=== PATIENT | female | born 1950 | race Caucasian/White ===

== ENCOUNTER 2019-07-14 19:22 | Inpatient (IN) | payer OTHER ==
[2019-07-14] MEDS ORDERED: SODIUM CHLORIDE 1,000 ML IV STA (19:32)
--- NOTE | 2019-07-14 19:37 | PDOC ---
Attending Attestation - Resident Resident Name: Nikolai Carter - ED Attending Attestation I have performed the following: I have examined & evaluated the patient, The case was reviewed & discussed with the resident, I agree w/resident's findings & plan - HPI HPI: 07/14/19 21:28 see resident hpi - Physicial Exam PE: 07/14/19 21:28 agree with resident exam - Critical Care Time Total Critical Care Time: 45 Critical Care Statement: The care of this patient involved high complexity decision making to prevent further life threatening deterioration of the patient 's condition and/or to evaluate & treat vital organ system(s) failure or risk of failure. - Medical Decision Making 07/14/19 21:30 69-year-old female found on the floor by her son Labs are consistent withsevere volume depletion,dehydration with acute kidney injury as well as rhabdomyolysis lactic acid markedly elevated as well Plan for smith-scan CThead spinechest abdomen and pelvis ICU consult called for admission
--- NOTE | 2019-07-14 19:44 | PDOC ---
History of Present Illness - General Chief Complaint: Altered Mental Status Stated Complaint: WEAKNESS Time Seen by Provider: 07/14/19 19:31 History Source: Patient Exam Limitations: Clinical Condition - History of Present Illness Initial Comments: Alyssa Irizarry is a 69 yo F who presents to the [facility] er BIBEMS altered and unresponsive. EMS states she was in A-fib with RVR on route so they gave 25 mg of cardizem after which the patient became bradycardic to the 30's. The patient is not able to contribute anything to the history however she does moan saying her abdomen, which is significantly distended hurts and her abdomen is in pain. The son is with the patient in the ER. The son states that his mother lives at home alone and has not eaten any food or drank anything for the past 3 days. The son states that his mom has been lying down on the ground unresponsive and confused. She refused to shower, eat or drink. The patient arrived in the ER covered in dirt, urine and feces with a strongly malodorous scent. Upon ER arrival patient was tachycardic to the 170's then oralia's down to the 30's, then went back up to the 150's. We immediately brought the patient into room 10 , hooked her up to the monitor, established two larged bore IV's, placed her on the monitor and started fluid bolusing her. Patient is responsive to pain and can answer questions with noxious stimulation. Past History - Past Medical History Allergies/Adverse Reactions: Allergies Allergy/AdvReac Type Severity Reaction Status Date / Time No Known Allergies Allergy Verified 07/14/19 19:46 Review of Systems - Review of Systems Able to Perform ROS?: No (AMS) *Physical Exam - Physical Exam Comments: GENERAL: Patient is covered in dirt, urine, and feces. Patient has a strongly malodorous scent. Patient is arousable to sternal rub and noxious stimulation. Moderate distress. HEAD: Atraumatic and nontender. HEENT: Pupils are equal round and reactive to light. No facial deformity. No facial bone tenderness or step-off. The oropharynx is not well maintained. NECK: The trachea is midline, there is no stridor. There is no midline cervical spine tenderness, full range of motion of neck. CHEST: There are multiple intertrigonous lesoins under both breast. Non-tender, no ecchymosis or abrasions. Equal chest wall expansion bilaterally. No flail segments. Lungs are clear to auscultation bilaterally. CARDIOVASCULAR: Irregular tachycardic rate. Normal S1-S2. No murmurs or rubs. ABDOMEN: The abdomen is significant;y distended and peritoneal. There is guarding but no rebound. No abdominal echymosis. BACK/PELVIS: There is no midline thoracic or lumbosacral spine tenderness or step-off. Pelvis is stable and nontender. EXTREMITIES: bilateral knee abrasions. The extremities There is no extremity deformity or joint swelling. No focal bony tenderness throughout. 2+ distal pulses throughout. NEURO: Alert and oriented x1. SKIN: Multiple abrasions. No hematomas or lacerations. Procedures - Intubation Time of Intubation: 11:04 Intubation Method: orotracheal Blade used: Mac Tube Size (Fr): 7.0 Medications: Etomidate, Rocuronium Tube position @ lip (cm): 20 Tube position confirmed by: Direct visualization, CO2 detector, Chest x-ray, Breath sounds Breath Sounds after Intubation: equal Intubation Complications: no complications Post Intubation Xray: Yes ED Treatment Course - LABORATORY CBC & Chemistry Diagram: 07/15/19 04:40 07/15/19 04:40 - RADIOLOGY Radiograph Interpretation: CT: EXAM: CT chest, abdomen and pelvis without contrast HISTORY: Intubated COMPARISON: None. FINDINGS: CT chest: There is no aortic aneurysm. The main pulmonary artery is dilated to 3.7 cm which suggest pulmonary arterial hypertension. There is no significant mediastinal or hilar adenopathy. The heart is mildly enlarged. The trachea and bronchi are patent. There is no pleural or pericardial effusion. Consolidations in the right middle lobe and bilateral lower lobes are suspicious to represent pneumonia although there may be an element of atelectasis. Diffuse esophageal reflux is noted. CT abdomen and pelvis: Intraperitoneal free air is highly suspicious for bowel perforation. There is a small to moderate amount of ascites. Dilated loops of small bowel are noted, measuring up to 3.7 cm, suggesting a small bowel obstruction and perforated SBO should clearly be considered. Normal unenhanced liver, gallbladder, spleen, pancreas adrenal glands and kidneys. No aortic aneurysm. There is moderate retroperitoneal adenopathy, suspicious for neoplasm. Urinary bladder is collapsed by Booker catheter. There is an air and fluid containing irregular mass in the pelvis measuring approximately 12.8 x 12.2 cm unclear if representing uterus or a mesenteric mass. An abnormal small bowel loop is possible this could be the cause of small bowel obstruction and perforation. IMPRESSION: Suspected pulmonary arterial hypertension. Probable right middle lobe and bilateral lower lobe pneumonia. Diffuse esophageal reflux. Intraperitoneal free air and ascites, highly suspicious for bowel perforation, possibly due to small bowel obstruction. 12.8 cm and and fluid-containing pelvic mass, unclear if representing the uterus , mesenteric mass or possibly an abnormal loop of bowel, which could be the cause of small bowel obstruction. Retroperitoneal adenopathy is suspicious for neoplasm. Medical Decision Making - Medical Decision Making Alyssa Irizarry is a 69 yo F who presents to the [facility] er BIBEMS altered and unresponsive. EMS states she was in A-fib with RVR on route so they gave 25 mg of cardizem after which the patient became bradycardic to the 30's. The patient is not able to contribute anything to the history however she does moan saying her abdomen, which is significantly distended hurts and her abdomen is in pain. The son is with the patient in the ER. The son states that his mother lives at home alone and has not eaten any food or drank anything for the past 3 days. The son states that his mom has been lying down on the ground unresponsive and confused. She refused to shower, eat or drink. The patient arrived in the ER covered in dirt, urine and feces with a strongly malodorous scent. Upon ER arrival patient was tachycardic to the 170's then oralia's down to the 30's, then went back up to the 150's. We immediately brought the patient into room 10 , hooked her up to the monitor, established two larged bore IV's, placed her on the monitor and started fluid bolusing her. Patient is responsive to pain and can answer questions with noxious stimulation. Vital Signs Temp Pulse Resp BP Pulse Ox 97.3 F L 131 H 122/95 100 07/14/19 19:42 07/14/19 20:02 07/14/19 20:02 07/14/19 20:02 Resp rate 39 - Patient is somnolent but responds to sternal rub and speaks saying her abdomen hurts. MDM: Patient presents altered, in a-fib with RVR. Her urine was Tea colored and she is most likely in rhabdo. She has not eaten or drank in 4 days. She likely has a terrible kidney injury. This might have all been triggered by a UTI 4 days ago. - Rhabdo - Lactic acidosis - A-fib w RVR - Dehydration - UTI - AMS - Elevated INR - Hyperammonemia - Distended abdomen - Coffee ground emesis Plan: IV fluid rescucitation, ABX, correct electrolytes, ICU admit CT: IMPRESSION: Suspected pulmonary arterial hypertension. Probable right middle lobe and bilateral lower lobe pneumonia. Diffuse esophageal reflux. Intraperitoneal free air and ascites, highly suspicious for bowel perforation, possibly due to small bowel obstruction. 12.8 cm and and fluid-containing pelvic mass, unclear if representing the uterus , mesenteric mass or possibly an abnormal loop of bowel, which could be the cause of small bowel obstruction. Retroperitoneal adenopathy is suspicious for neoplasm. Dr. Paredes - Surgery paged and is aware of patient. *DC/Admit/Observation/Transfer Diagnosis at time of Disposition: Lactic acidosis, Hyperammonemia, Elevated INR, Acidosis, Coffee ground emesis Altered mental status Qualifiers: Altered mental status type: stupor Qualified Code(s): R40.1 - Stupor UTI (urinary tract infection) Qualifiers: Urinary tract infection type: acute cystitis Hematuria presence: without hematuria Qualified Code(s): N30.00 - Acute cystitis without hematuria Rhabdomyolysis Qualifiers: Rhabdomyolysis type: non-traumatic Qualified Code(s): M62.82 - Rhabdomyolysis Renal failure Qualifiers: Renal failure chronicity: acute Acute renal failure type: unspecified Qualified Code(s): N17.9 - Acute kidney failure, unspecified - Discharge Dispostion Condition at time of disposition: Critical Decision to Admit order: Yes - Referrals - Patient Instructions - Post Discharge Activity Discharge - Discharge Information Problems reviewed: Yes Clinical Impression/Diagnosis: Lactic acidosis, Hyperammonemia, Elevated INR, Acidosis, Coffee ground emesis Altered mental status Qualifiers: Altered mental status type: stupor Qualified Code(s): R40.1 - Stupor UTI (urinary tract infection) Qualifiers: Urinary tract infection type: acute cystitis Hematuria presence: without hematuria Qualified Code(s): N30.00 - Acute cystitis without hematuria Rhabdomyolysis Qualifiers: Rhabdomyolysis type: non-traumatic Qualified Code(s): M62.82 - Rhabdomyolysis Renal failure Qualifiers: Renal failure chronicity: acute Acute renal failure type: unspecified Qualified Code(s): N17.9 - Acute kidney failure, unspecified Condition: Critical
[2019-07-14 20:13] LABS: BASO % 0.1 % (0-2.0); EOS % 1.8 % (0-4.5); HEMATOCRIT 30.3 % (32.4-45.2); HEMOGLOBIN 9.1 GM/dL (10.7-15.3); LYMPH % 4.4 % (8-40); MCH 20.8 pg (25.7-33.7); MCHC 29.9 g/dl (32.0-36.0); MEAN CELL VOLUME 69.6 fl (80-96); MEAN PLT VOLUME 8.8 fl (7.5-11.1); MONO % 4.4 % (3.8-10.2); NEUT % 89.3 % (42.8-82.8); PLATELET COUNT 787 K/MM3 (134-434); RBC 4.35 M/mm3 (3.60-5.2)
[2019-07-14 20:37] LABS: WHITE BLOOD COUNT 48.2 K/mm3 (4.0-10.0)
[2019-07-14 20:42] LABS: ARTERIAL BLD GAS O2 SATURATION 92.2 % (95-98); ARTERIAL BLOOD GAS BASE EXCESS -14.8 meq/l (-2-2); ARTERIAL BLOOD GAS PCO2 34.4 mmHg (35-45)
[2019-07-14 20:43] LABS: ARTERIAL BLOOD GAS PO2 91.4 mmHg (80-100); CARBOXYHEMOGLOBIN < 0.5 % (0-2); INR 2.97 (0.83-1.09); PROTHROMBIN TIME (PATIENT) 35.4 SEC (9.7-13.0)
[2019-07-14 20:45] LABS: ACTIVATED PTT 36.3 SECONDS (25.2-36.5)
[2019-07-14 20:46] LABS: ARTERIAL BLOOD GAS pH 7.18 (7.35-7.45)
[2019-07-14] MEDS ORDERED: LACTATED RINGERS SOLUTION 1000 ML INFUS.BAG IV ONE (20:50)
[2019-07-14 20:51] LABS: EPI CELLS 18.2 /HPF (0-5/HPF); HYALINE CASTS 215 /lpf (0-8); URINE APPEARANCE TURBID; URINE BILIRUBIN 3+ (NEGATIVE); URINE COLOR ORANGE; URINE GLUCOSE (UA) NEGATIVE (NEGATIVE); URINE KETONE NEGATIVE (NEGATIVE); URINE LEUK ESTERASE 2+ (NEGATIVE); URINE NITRITE POSITIVE (NEGATIVE); URINE PROTEIN 2+ (NEGATIVE); URINE WBC 37 /hpf (0-5)
[2019-07-14] MEDS ORDERED: SODIUM CHLORIDE 1,000 ML IV SCH (21:00)
[2019-07-14 21:03] LABS: COCAINE, UR NEGATIVE ng/ml (CUTOFF=300); METHADONE, UR NEGATIVE ng/ml (CUTOFF=300); OPIATES, URI NEGATIVE ng/ml (CUTOFF=300); PHENCYCLIDINE,URINE NEGATIVE ng/ml (CUTOFF=25); URINE AMPHETAMINES NEGATIVE ng/ml (CUTOFF=500); URINE BARBITURATES NEGATIVE ng/ml (CUTOFF=200); URINE BENZODIAZEPINES NEGATIVE ng/ml (CUTOFF=200)
[2019-07-14 21:13] LABS: ALBUMIN 1.8 g/dl (3.4-5.0); BILIRUBIN,TOTAL 2.2 mg/dL (0.2-1); BLOOD UREA NITROGEN 72.2 mg/dL (7-18); CALCIUM 8.1 mg/dL (8.5-10.1); CREATININE 3.6 mg/dL (0.55-1.3); POTASSIUM 4.2 mmol/L (3.5-5.1); TOT PROT 5.6 g/dl (6.4-8.2)
[2019-07-14] MEDS ORDERED: ONDANSETRON 4 MG/2 ML VIAL IVPUSH ONE (21:49)
[2019-07-14] MEDS ORDERED: ONDANSETRON 4 MG/2 ML VIAL ONE (21:54)
[2019-07-14] MEDS ORDERED: CEFEPIME HCL/D5W 1 GM/50 ML BAG IVPB ONE (22:21)
[2019-07-14] MEDS ORDERED: VANCOMYCIN 1 GM in D5W (PRE-DOCKED) 1,000 MG/250 ML IVPB ONE (22:21)
[2019-07-14] MEDS ORDERED: VANCOMYCIN 1 GRAM (PRE-DOCKED) 1,000 MG/250 ML BAG IVPB ONE (22:44)
[2019-07-14 22:48] LABS: URINE RBC 14.8 /hpf (0-4)
[2019-07-14] MEDS ORDERED: PANTOPRAZOLE SODIUM 40 MG VIAL IVPUSH ONE (23:04)
[2019-07-14] MEDS ORDERED: PT OWN MED DRAWER 7, Y5N ONE (23:16)
[2019-07-14] MEDS ORDERED: HALOPERIDOL LACTATE 5 MG/ML ONE (23:29)
[2019-07-14] MEDS: PANTOPRAZOLE SODIUM 80 MG in SODIUM CHLORIDE 100 ML IVPB SCH (23:30)
[2019-07-14] MEDS ORDERED: CEFEPIME 1 GM in DEXTROSE 5%-WATER 100 ML IVPB ONE (23:30)
[2019-07-15] MEDS: NOREPINEPHRINE BITARTRATE 8,000 MCG in DEXTROSE 5%-WATER - 492 ML IV SCH
--- NOTE | 2019-07-15 | PROC ---
Central Line Insertion Indication: Sepsis, Vasopressor Risks and Benefits Explained: Yes Consent on Chart: Yes Central Line: Triple Lumen Catheter Sterile Technique: Yes Ultrasound Guided Assistance: Yes Position: Right Internal Jugular Post Insertion: Yes: Bilateral Breath Sounds, Chest X-Ray Ordered Sterile Dressing Applied: Yes
[2019-07-15] MEDS ORDERED: NOREPINEPHRINE BITARTRATE 4 MG/4 ML ML IV ONE ×3 (00:02→16:57)
[2019-07-15] MEDS ORDERED: CEFEPIME HCL 1 GM VIAL (RESTRICTED TO ID) ONE (00:03)
[2019-07-15] MEDS ORDERED: DEXTROSE 5%-WATER 100 ML IVPB ONE ×3 (00:03→21:52)
--- NOTE | 2019-07-15 00:26 | CONSULT ---
Consultation: REQUESTING PROVIDER:ED team CONSULT REQUEST: We have been asked to medically evaluate this patient for ( septic shock ). HISTORY OF PRESENT ILLNESS: 69 year old female with pmhx of glaucoma presented to the ED with AMS and Afib per EMS and was received 25 Cardizem that cause her Bacardia to 30. pt was unresponsive , altered , history obtain from son who reports 2 weeks history of abdominal pain associated with n/v/d 4-5 times /day but she refuse to seek medical help per son , she was using Motrin OTC not sure the amount and some times Tylenol, he reports history of hemorrhoids and family history for stomach cancer. pt last seen on her usual state of health 6 pm per son (ED note mentioned pt has been on floor for 3 days and was found with feces and dirts ), pt son reports loss of appetite and weight loss. denies any chest pain , sob denies any urinary symptoms or dyspnea on exertion. PMHx: glaucoma, Borderline DM , depression per son Pshx: Glaucoma right eye SHx: denies smoking alcohol and drugs Fhx: father has stomach cancer at age 58, mother 93 with hydrocephalus. REVIEW OF SYSTEMS: CONSTITUTIONAL: un able to obtain from pt info obtained from son Absent: fever, chills, diaphoresis, generalized weakness, malaise, loss of appetite, weight change HEENT: Absent: rhinorrhea, nasal congestion, throat pain, throat swelling, difficulty swallowing, mouth swelling, ear pain, eye pain, visual changes CARDIOVASCULAR: Absent: chest pain, syncope, palpitations, irregular heart rate, lightheadedness , peripheral edema RESPIRATORY: Absent: cough, shortness of breath, dyspnea with exertion, orthopnea, wheezing, stridor, hemoptysis GASTROINTESTINAL: Absent: abdominal pain, abdominal distension, nausea, vomiting, diarrhea, constipation, melena, hematochezia GENITOURINARY: Absent: dysuria, frequency, urgency, hesitancy, hematuria, flank pain, genital pain MUSCULOSKELETAL: Absent: myalgia, arthralgia, joint swelling, back pain, neck pain SKIN: Absent: rash, itching, pallor HEMATOLOGIC/IMMUNOLOGIC: Absent: easy bleeding, easy bruising, lymphadenopathy, frequent infections ENDOCRINE: Absent: unexplained weight gain, unexplained weight loss, heat intolerance, cold intolerance NEUROLOGIC: Absent: headache, focal weakness or paresthesias, dizziness, unsteady gait, seizure, mental status changes, bladder or bowel incontinence PSYCHIATRIC: Absent: anxiety, depression, suicidal or homicidal ideation, hallucinations. PHYSICAL EXAMINATION Vital Signs - 24 hr 07/14/19 07/14/19 07/14/19 19:40 19:42 20:02 Temperature 97.3 F L 97.3 F L Pulse Rate 131 H 80 Pulse Rate [ 131 H Apical] Respiratory Rate Blood Pressure 122/90 98/72 Blood Pressure 122/95 [Left Arm] O2 Sat by Pulse 100 48 L 100 Oximetry (%) 07/14/19 23:05 Temperature Pulse Rate Pulse Rate [ Apical] Respiratory 28 H Rate Blood Pressure Blood Pressure [Left Arm] O2 Sat by Pulse Oximetry (%) GENERAL: intubated sedated nc/at Head : Normal with no signs of trauma. EYES: Pupils equal, round and reactive to light, ENT: Ears normal, nares patent, oropharynx clear without exudates. dry mucous membranes. NECK:supple LUNGS:bibasilar crackles HEART: RRR ABDOMEN: Soft, diffuse tenderness, mildly distended, normoactive bowel sounds, no guarding, MUSCULOSKELETAL: Normal range of motion at all joints. No bony deformities or tenderness. No CVA tenderness. UPPER EXTREMITIES: 2+ pulses, warm, well-perfused. No cyanosis. No clubbing. LOWER EXTREMITIES: 2+ pulses, warm, well-perfused. No peripheral edema. NEUROLOGICAL: intubated sedated Active Medications Generic Name Dose Route Start Last Admin Trade Name Freq PRN Reason Stop Dose Admin Chlorhexidine Gluconate 1 applic 07/15/19 22:00 Hibiclens For Decolonization - TP HS BERTRAM Sodium Chloride 1,000 mls @ 75 mls/hr 07/14/19 21:00 07/14/19 21:12 Normal Saline - IV 75 mls/hr ASDIR BERTRAM Administration Azithromycin 500 mg in 250 mls @ 250 mls/hr 07/15/19 10:00 Zithromax 500mg Ivpb (Pre-Docked) IVPB DAILY BERTRAM Pantoprazole Sodium 80 mg/ 100 mls @ 10 mls/hr 07/14/19 23:30 Sodium Chloride IVPB Q10H BERTRAM 8 MG/HR Mupirocin 1 applic 07/15/19 10:00 Bactroban Ointment (For Decolonization) - NS 07/20/19 09:[address] scan chest abdomen and pelvic : primary reading consolidation in right middle lobe and bilateral lower lobes suspicious for PNA vs atelectais small to moderate amount oif ascities , dilated loops of small chrissy are noted , measuring up to 3.7 cm , suggesting small bowel obstruction and perforated SBO should clearly be considered. moderate retroperitoneal adenopathy suspicious for neoplasm, there s an air and fluid containing irregular mass in the pelvis measuring 12.8x 12.2 cm representing uterus or mesenteric mass, an abnormal small bowel loop is possible cause small bowel obstruction or perforation. 07/14/19 20:00 07/14/19 20:00 ASSESSMENT/PLAN: 69 year old female with no pcp, presented to ED with altered mental status and coffee ground emesis was found to be septic and admitted to ICU for close monitoring # ID Sever sepsis 2/2 SBO perforation and CPNA vs apiration and UTI * wbc 48.2 , LA 10 trend after hydration * smith cx , blood , Urine and sputum * started on abx cefepim , azithomax and vancomycin add flagyl 500 IV Q 8hr * IV fluids bolus and maintenance * maintain BP MAP> 65 * pressors if not responding to fluids can start levofed Gtt 5 mcg/min * sedation propfol @ 2 mcg/min * follow official read for CT head , chest abdomen , pelvic * Aspiration precautions, head of bed elevation , OGT * surgery was consulted Dr Paredes and did not recommended intervention till pt is hemodynamicaly stable. # Neuro : -Acute metabolic encephalopathy * Intubated sedated * vent settings: TV 450 RR14 FiO2 100 PEEP 5 * confused due to sepsis * CT head negative # cardiopulmonary - troponinemia due to - Aspiration PNA bibasilar and right middle lobe , cont abx - AFIB py EMS S/p Cardizem 25 per ED and pt went in oralia cardia to 30 , monior in ICU , monitoring engineer , BP monitor , repeat EKG # GI - Upper GI bleed -Asicitis - liver cirrhosis ?? - gallbladder sludge and * presented with coffee ground emesis * 2 large IV bores * Monitor H/H Q 6 hr * type and screen , PT, PTT, INR * normal transfusion threshold below 7 unless is actively bleeding * PPI 40 IV push and then drip * avoid NSAIDS - Diarrhea for last few weeks - Abdominal pain - elevated bili * send C diff * was on Motrin OTC for pain * CT abdomen with SBO and perforation and mild ascitis * NPO , NGT # Nephro: - JEFF BUN /Cr 72/3.6 unkown base line , likely due to dehydration will send urine lytes, cr , calculate FENA , Kidney US - repeat lab after hydration # UTI UA positive LE + Nitrit + wbc 37 cont abx # High anion gap metabolic acidosis 2/2 to infection - ABG Ph 7.18, repeat 7.06 started on becarb drip , treat source of infection but could nt be operated on till pt is stable. # Hypovolemic hyponatremic NA 128 repeat after iv hydration 131 , cont IV fluids , urine osmo, blood osmolality # Heme : - microcytic hypochromic anemia due to malnourished and blood loss anemia -consider iron studies,b12 , folic acid - monitor H/H Q 6 hr # Musculoskeletal - elevated CK 1500 R.O Rhabdomyolysis * start IV fluids * trend CK * monitor urine out put # FEN * NS 2 L bolus in Ed , add one more bolus ,maintenance RL @ 75 cc * Monitor lytes * NPO # Proph * dVTs proph: scds , no chemical prophylaxis in term of bleeding * GI proph : PPI Drip # full code son is next of kin available on house number [phone] and cell phone # med reconcile : pt is not on any meds at home Dispo: We will continue to follow the patient. Thank you for this consultative opportunity. Visit type - Emergency Visit Emergency Visit: Yes ED Registration Date: 07/14/19 Care time: The patient presented to the Emergency Department on the above date and was hospitalized for further evaluation of their emergent condition. - New Patient This patient is new to me today: Yes Date on this admission: 07/14/19 - Critical Care Critical Care patient: Yes Total Critical Care Time (in minutes): 70 Critical Care Statement: The care of this patient involved high complexity decision making to prevent further life threatening deterioration of the patient 's condition and/or to evaluate & treat vital organ system(s) failure or risk of failure. ATTENDING PHYSICIAN STATEMENT I saw and evaluated the patient. I reviewed the resident's note and discussed the case with the resident. I agree with the resident's findings and plan as documented. SUBJECTIVE: OBJECTIVE: ASSESSMENT AND PLAN:
--- NOTE | 2019-07-15 00:47 | HP ---
CHIEF COMPLAINT: altered mental status PCP: none HISTORY OF PRESENT ILLNESS: 69 y.o. F PMH is unclear but has has anemia in past presenting for AMS. Patient was unresponsive on my initial encounter so history is obtained as per ED. Patient was found down unresponsive and mentating less than baseline as per her son. Pt lives by herself; For 4 days she was refusing to perform ADLs, had poor hygiene and has not been eating or drinking. She was also having nonbloody diarrhea for the past few days. On arrival she was found to be bradycardic to the 30s d/t cardizem administration by EMS (as per EMS was in A-fib w/ RVR) but then became tachy to the 170s in ED. 2 large bore IVs were placed and she received 2L total IVF boluses. On admission patient was responding to ED staff. She was then transferred to ICU. In ICU pt had multiple episodes coffee ground emesis- NGT placed. In ICU when she became unresponsive and was subsequently intubated. Central line placed w/ consent from family members. ER course was notable for: (1)Tang to 30s then Tachy to 170s; BP 98/72 (2) WBC 48.2, Lactate 10.1 (3)ABG: pH 7.18 (4) CMP: Na 128, Cl 88, Co2 14, anion gap 25, BUN/Cr 72.2/3.6 (5) UA: 2+ protein, + nitrites, 2+ LE, 3+ bilirubin. Recent Travel: unknown PAST MEDICAL HISTORY: anemia, other PMH unclear PAST SURGICAL HISTORY: unknown Social History: unknown Smoking: Alcohol: Drugs: Allergies No Known Allergies Allergy (Verified 07/14/19 19:46) Family Hx: GI cancer in mother HOME MEDICATIONS: none REVIEW OF SYSTEMS CONSTITUTIONAL: Absent: fever, chills, diaphoresis, generalized weakness, malaise, loss of appetite, weight change HEENT: Absent: rhinorrhea, nasal congestion, throat pain, throat swelling, difficulty swallowing, mouth swelling, ear pain, eye pain, visual changes CARDIOVASCULAR: Absent: chest pain, syncope, palpitations, irregular heart rate, lightheadedness , peripheral edema RESPIRATORY: Absent: cough, shortness of breath, dyspnea with exertion, orthopnea, wheezing, stridor, hemoptysis GASTROINTESTINAL: Absent: abdominal pain, abdominal distension, nausea, vomiting, diarrhea, constipation, melena, hematochezia GENITOURINARY: Absent: dysuria, frequency, urgency, hesitancy, hematuria, flank pain, genital pain MUSCULOSKELETAL: Absent: myalgia, arthralgia, joint swelling, back pain, neck pain SKIN: Absent: rash, itching, pallor HEMATOLOGIC/IMMUNOLOGIC: Absent: easy bleeding, easy bruising, lymphadenopathy, frequent infections ENDOCRINE: Absent: unexplained weight gain, unexplained weight loss, heat intolerance, cold intolerance NEUROLOGIC: Absent: headache, focal weakness or paresthesias, dizziness, unsteady gait, seizure, mental status changes, bladder or bowel incontinence PSYCHIATRIC: Absent: anxiety, depression, suicidal or homicidal ideation, hallucinations. PHYSICAL EXAMINATION Vital Signs - 24 hr 07/14/19 07/14/19 07/14/19 19:40 19:42 20:02 Temperature 97.3 F L 97.3 F L Pulse Rate 131 H 80 Pulse Rate [ 131 H Apical] Respiratory Rate Blood Pressure 122/90 98/72 Blood Pressure 122/95 [Left Arm] O2 Sat by Pulse 100 48 L 100 Oximetry (%) 07/14/19 23:05 Temperature Pulse Rate Pulse Rate [ Apical] Respiratory 28 H Rate Blood Pressure Blood Pressure [Left Arm] O2 Sat by Pulse Oximetry (%) GENERAL: Lying in bed, intubated, sedated HEAD: Normal with no signs of trauma. EYES: Pupils equal, round and reactive to light, conjunctiva clear. ENT: NGT in place on low suction. Intubated. NECK: R IJ in place C/D/I LUNGS: Crackling heard b/l HEART: Normal S1 and S2 without murmurs. Tachycardic. ABDOMEN: Soft, nontender, not distended. Bowel sounds diminished. UPPER EXTREMITIES: RUE A-line in place C/D/I. 2+ pulses, warm, well-perfused. No peripheral edema. LOWER EXTREMITIES: 2+ pulses, warm, well-perfused. No peripheral edema. SKIN: No rashes or lesions noted. Laboratory Results - last 24 hr 07/14/19 07/14/19 07/14/19 19:56 20:00 20:00 WBC RBC Hgb Hct MCV MCH MCHC RDW Plt Count MPV Absolute Neuts (auto) Total Counted Neutrophils % Neutrophils % (Manual) Band Neutrophils % Lymphocytes % Lymphocytes % (Manual) Monocytes % Monocytes % (Manual) Eosinophils % Basophils % Myelocytes % (Man) Nucleated RBC % Metamyelocytes PT with INR INR PTT (Actin FS) Anticoagulation Therapy Puncture Site ABG pH ABG pCO2 at Pt Temp ABG pO2 at Pt Temp ABG HCO3 ABG O2 Sat (Measured) ABG O2 Content ABG Base Excess Guille Test Carboxyhemoglobin Methemoglobin O2 Delivery Device Oxygen Flow Rate Vent Mode Vent Rate Mechanical Rate Pressure Support Vent Sodium Potassium Chloride Carbon Dioxide Anion Gap BUN Creatinine Est GFR (CKD-EPI)AfAm Est GFR (CKD-EPI)NonAf POC Glucometer 136 Random Glucose Lactic Acid Calcium Magnesium Total Bilirubin AST ALT Alkaline Phosphatase Ammonia Creatine Kinase Creatine Kinase Index CK-MB (CK-2) Troponin I 0.14 H Total Protein Albumin Urine Color Urine Appearance Urine pH Ur Specific Ovid Urine Protein Urine Glucose (UA) Urine Ketones Urine Blood Urine Nitrite Urine Bilirubin Urine Urobilinogen Ur Leukocyte Esterase Urine WBC (Auto) Urine RBC (Auto) Urine Casts (Auto) U Pathogenic Cast Auto U Epithel Cells (Auto) Salicylates 6.0 Opiates Screen Methadone Screen Acetaminophen Barbiturate Screen Phencyclidine Screen Ur Amphetamines Screen MDMA (Ecstasy) Screen Benzodiazepines Screen Cocaine Screen U Marijuana (THC) Screen Alcohol, Quantitative < 3.0 Blood Type Antibody Screen 07/14/19 07/14/19 07/14/19 20:00 20:00 20:00 WBC 48.2 H* RBC 4.35 Hgb 9.1 L Hct 30.3 L D MCV 69.6 L MCH 20.8 L D MCHC 29.9 L RDW 18.0 H Plt Count 787 H D MPV 8.8 Absolute Neuts (auto) 43.0 H Total Counted 100 Neutrophils % 89.3 H D Neutrophils % (Manual) 64.0 Band Neutrophils % 23.0 Lymphocytes % 4.4 L D Lymphocytes % (Manual) 6.0 L Monocytes % 4.4 Monocytes % (Manual) 3 L Eosinophils % 1.8 Basophils % 0.1 Myelocytes % (Man) 2 Nucleated RBC % 0 Metamyelocytes 2 PT with INR INR PTT (Actin FS) Anticoagulation Therapy Puncture Site ABG pH ABG pCO2 at Pt Temp ABG pO2 at Pt Temp ABG HCO3 ABG O2 Sat (Measured) ABG O2 Content ABG Base Excess Guille Test Carboxyhemoglobin Methemoglobin O2 Delivery Device Oxygen Flow Rate Vent Mode Vent Rate Mechanical Rate Pressure Support Vent Sodium 128 L Potassium 4.2 Chloride 88 L Carbon Dioxide 14 L Anion Gap 25 H BUN 72.2 H Creatinine 3.6 H Est GFR (CKD-EPI)AfAm 13.95 Est GFR (CKD-EPI)NonAf 12.04 POC Glucometer Random Glucose 155 H Lactic Acid Calcium 8.1 L Magnesium Total Bilirubin 2.2 H AST 87 H ALT 32 Alkaline Phosphatase 128 H Ammonia Creatine Kinase 1571 H Creatine Kinase Index 2.4 CK-MB (CK-2) 39.0 H Troponin I 0.14 H Total Protein 5.6 L Albumin 1.8 L Urine Color Urine Appearance Urine pH Ur Specific Ovid Urine Protein Urine Glucose (UA) Urine Ketones Urine Blood Urine Nitrite Urine Bilirubin Urine Urobilinogen Ur Leukocyte Esterase Urine WBC (Auto) Urine RBC (Auto) Urine Casts (Auto) U Pathogenic Cast Auto U Epithel Cells (Auto) Salicylates Opiates Screen Methadone Screen Acetaminophen <2.0 Barbiturate Screen Phencyclidine Screen Ur Amphetamines Screen MDMA (Ecstasy) Screen Benzodiazepines Screen Cocaine Screen U Marijuana (THC) Screen Alcohol, Quantitative Blood Type Antibody Screen 07/14/19 07/14/19 07/14/19 20:00 20:00 20:00 WBC RBC Hgb Hct MCV MCH MCHC RDW Plt Count MPV Absolute Neuts (auto) Total Counted Neutrophils % Neutrophils % (Manual) Band Neutrophils % Lymphocytes % Lymphocytes % (Manual) Monocytes % Monocytes % (Manual) Eosinophils % Basophils % Myelocytes % (Man) Nucleated RBC % Metamyelocytes PT with INR INR PTT (Actin FS) Anticoagulation Therapy Puncture Site ABG pH ABG pCO2 at Pt Temp ABG pO2 at Pt Temp ABG HCO3 ABG O2 Sat (Measured) ABG O2 Content ABG Base Excess Guille Test Carboxyhemoglobin Methemoglobin O2 Delivery Device Oxygen Flow Rate Vent Mode Vent Rate Mechanical Rate Pressure Support Vent Sodium Potassium Chloride Carbon Dioxide Anion Gap BUN Creatinine Est GFR (CKD-EPI)AfAm Est GFR (CKD-EPI)NonAf POC Glucometer Random Glucose Lactic Acid 10.1 H* Calcium Magnesium 3.4 H Total Bilirubin AST ALT Alkaline Phosphatase Ammonia Creatine Kinase Creatine Kinase Index CK-MB (CK-2) Troponin I Total Protein Albumin Urine Color Urine Appearance Urine pH Ur Specific Ovid Urine Protein Urine Glucose (UA) Urine Ketones Urine Blood Urine Nitrite Urine Bilirubin Urine Urobilinogen Ur Leukocyte Esterase Urine WBC (Auto) Urine RBC (Auto) Urine Casts (Auto) U Pathogenic Cast Auto U Epithel Cells (Auto) Salicylates Opiates Screen Negative Methadone Screen Negative Acetaminophen Barbiturate Screen Negative Phencyclidine Screen Negative Ur Amphetamines Screen Negative MDMA (Ecstasy) Screen Negative Benzodiazepines Screen Negative Cocaine Screen Negative U Marijuana (THC) Screen Negative Alcohol, Quantitative Blood Type Antibody Screen 07/14/19 07/14/19 07/14/19 20:00 20:00 20:00 WBC RBC Hgb Hct MCV MCH MCHC RDW Plt Count MPV Absolute Neuts (auto) Total Counted Neutrophils % Neutrophils % (Manual) Band Neutrophils % Lymphocytes % Lymphocytes % (Manual) Monocytes % Monocytes % (Manual) Eosinophils % Basophils % Myelocytes % (Man) Nucleated RBC % Metamyelocytes PT with INR 35.40 H INR 2.97 H PTT (Actin FS) 36.3 Anticoagulation Therapy Puncture Site ABG pH ABG pCO2 at Pt Temp ABG pO2 at Pt Temp ABG HCO3 ABG O2 Sat (Measured) ABG O2 Content ABG Base Excess Guille Test Carboxyhemoglobin Methemoglobin O2 Delivery Device Oxygen Flow Rate Vent Mode Vent Rate Mechanical Rate Pressure Support Vent Sodium Potassium Chloride Carbon Dioxide Anion Gap BUN Creatinine Est GFR (CKD-EPI)AfAm Est GFR (CKD-EPI)NonAf POC Glucometer Random Glucose Lactic Acid Calcium Magnesium Total Bilirubin AST ALT Alkaline Phosphatase Ammonia Creatine Kinase Creatine Kinase Index CK-MB (CK-2) Troponin I Total Protein Albumin Urine Color [place] Urine Appearance Turbid Urine pH 5.0 Ur Specific Ovid 1.030 Urine Protein 2+ H Urine Glucose (UA) Negative Urine Ketones Negative Urine Blood Negative Urine Nitrite Positive H Urine Bilirubin 3+ H Urine Urobilinogen 1.0 Ur Leukocyte Esterase 2+ H Urine WBC (Auto) 37 Urine RBC (Auto) 14.8 Urine Casts (Auto) 215 U Pathogenic Cast Auto 2-4 U Epithel Cells (Auto) 18.2 Salicylates Opiates Screen Methadone Screen Acetaminophen Barbiturate Screen Phencyclidine Screen Ur Amphetamines Screen MDMA (Ecstasy) Screen Benzodiazepines Screen Cocaine Screen U Marijuana (THC) Screen Alcohol, Quantitative Blood Type O POSITIVE Antibody Screen Negative 07/14/19 07/14/19 20:00 20:00 WBC RBC Hgb Hct MCV MCH MCHC RDW Plt Count MPV Absolute Neuts (auto) Total Counted Neutrophils % Neutrophils % (Manual) Band Neutrophils % Lymphocytes % Lymphocytes % (Manual) Monocytes % Monocytes % (Manual) Eosinophils % Basophils % Myelocytes % (Man) Nucleated RBC % Metamyelocytes PT with INR INR PTT (Actin FS) Anticoagulation Therapy No Result Required. Puncture Site No Result Required. ABG pH 7.18 L* ABG pCO2 at Pt Temp 34.4 L ABG pO2 at Pt Temp 91.4 ABG HCO3 12.2 L ABG O2 Sat (Measured) 92.2 L ABG O2 Content No Result Required. ABG Base Excess -14.8 L Guille Test No Result Required. Carboxyhemoglobin < 0.5 Methemoglobin 1.1 O2 Delivery Device No Result Required. Oxygen Flow Rate No Result Required. Vent Mode No Result Required. Vent Rate No Result Required. Mechanical Rate No Result Required. Pressure Support Vent No Result Required. Sodium Potassium Chloride Carbon Dioxide Anion Gap BUN Creatinine Est GFR (CKD-EPI)AfAm Est GFR (CKD-EPI)NonAf POC Glucometer Random Glucose Lactic Acid Calcium Magnesium Total Bilirubin AST ALT Alkaline Phosphatase Ammonia 73.00 H Creatine Kinase Creatine Kinase Index CK-MB (CK-2) Troponin I Total Protein Albumin Urine Color Urine Appearance Urine pH Ur Specific Ovid Urine Protein Urine Glucose (UA) Urine Ketones Urine Blood Urine Nitrite Urine Bilirubin Urine Urobilinogen Ur Leukocyte Esterase Urine WBC (Auto) Urine RBC (Auto) Urine Casts (Auto) U Pathogenic Cast Auto U Epithel Cells (Auto) Salicylates Opiates Screen Methadone Screen Acetaminophen Barbiturate Screen Phencyclidine Screen Ur Amphetamines Screen MDMA (Ecstasy) Screen Benzodiazepines Screen Cocaine Screen U Marijuana (THC) Screen Alcohol, Quantitative Blood Type Antibody Screen ASSESSMENT/PLAN: 69 y.o. F PMH anemia presenting for AMS. Septic shock 2/2 aspiration PNA vs CAP, perforated bowel and UTI -UA: 2+ protein, + nitrites, 2+ LE -CT chest: Probable R middle lobe & b/l lower lobe PNA -B/l pulmonary infiltrates noted on CXR -Lactate 10.1--> 8.9; trend -Leukocytosis downtrending (48.2 on adm) -Intubated in ICU: vent settings: TV 450 RR14 FiO2 100 PEEP 5 -Started vanc, cefepime, zithromax- adjusted for renal failure -Started levophed, vasopressor, bicarb gtt -On sedation w/ propofol -F/u blood cx, urine cx, sputum cx, urine legionella ag -F/u repeat labs -F/u viral serologies -Monitor Is & Os- pt anuric -Aspiration precautions, keep HOB elevated #Acute metabolic encephalopathy -Head CT, c spine CT negative -C/w IVF NS @75mL/ hr -U-tox negative -On sedation #GI bleed 2/2 possible bowel perforation w/ SBO -CT abd/ pel shows SBO w/ poss sm bowel perf -Pt having coffee ground emesis -NGT in place on low cont suction 300mL output since placement -Hgb dropped to 7.3 from 9.1; trend q6h -2U pRBCs ordered -Pt's son says she took some motrin over the past few days not sure how much -S/p 40mg IV push protonix; continue with protonix drip -Flagyl 500mg IV q8h -Dr. Paredes consulted, recs stabilizing pt prior to any OR procedure -GI consulted (Dr. Jarrett) #High anion gap metabolic acidosis -ABG pH 7.18, pCO2 34.4, HCO3 12.2; repeat ABG pH 7.07, pCO2 42.1, HCO3 11.6 -Intubated, sedated -on 2 pressors -Pulm consulted -Serial ABGs #Acute Rhabdomyolysis -C/w IVF -CK 1571; trend CPK #Multi organ dysfunction syndrome -renal, pulmonary, GI involvement -renal/ pulm/ ID/ GI/ cardio/ surgery consulted #Renal failure 2/2 septic shock -C/w IVF -Cr 3.6 -F/u renal U/S -F/u urine Na, Cr, osms- calculate FeNa -Avoid nephrotoxic medications -Booker in place monitor output -Renal consulted- Dr. Villanueva #Tropinemia -Likely 2/2 demand -F/u Repeat EKG #Acute microcytic blood loss anemia -MCV 69.6 -Trend Hgb q6h -Consider iron studies #R/o GI CA -Ct abd shows retroperitoneal adenopathy suspicious for neoplasm -Pt has hx of GI CA in family -Further workup for malignancy once stable -Consider heme/onc consult #Diarrhea -F/u C. Diff -CT abdomen #Hypoalbuminemia -Albumin 1.3 -Likely 2/2 hypovolemia, JEFF, infxn #A-fib w/ RVR -In a-fib w/ RVR on adm -Repeat EKG shows NSR #PPX GI: Protonix drip DVT: Holding; r/o bleeding source #FEN -S/p 2 boluses IVF total; on NS @75mL/ hr -Trend electrolytes, replete PRN -NPO #Code status FULL CODE Patients son contact info: [phone] (home); [phone] (cell) Visit type - Emergency Visit Emergency Visit: Yes ED Registration Date: 07/14/19 Care time: The patient presented to the Emergency Department on the above date and was hospitalized for further evaluation of their emergent condition. - New Patient This patient is new to me today: Yes Date on this admission: 07/15/19 - Critical Care Critical Care patient: Yes Total Critical Care Time (in minutes): 50 Critical Care Statement: The care of this patient involved high complexity decision making to prevent further life threatening deterioration of the patient 's condition and/or to evaluate & treat vital organ system(s) failure or risk of failure. ATTENDING PHYSICIAN STATEMENT I saw and evaluated the patient. I reviewed the resident's note and discussed the case with the resident. I agree with the resident's findings and plan as documented. SUBJECTIVE: OBJECTIVE: ASSESSMENT AND PLAN:
[2019-07-15 00:51] LABS: ARTERIAL BLD GAS O2 SATURATION 89.3 % (95-98); ARTERIAL BLOOD GAS PCO2 42.1 mmHg (35-45)
[2019-07-15 00:52] LABS: ARTERIAL BLOOD GAS PO2 87.5 mmHg (80-100)
[2019-07-15] MEDS ORDERED: LACTATED RINGERS SOLUTION 1000 ML INFUS.BAG IV ONE (00:58)
[2019-07-15] MEDS ORDERED: NOREPINEPHRINE BITARTRATE 4,000 MCG in DEXTROSE 5%-WATER - 496 ML IV SCH (01:00)
[2019-07-15 01:02] LABS: ARTERIAL BLOOD GAS pH 7.07 (7.35-7.45)
[2019-07-15 01:04] LABS: BASO % 0.6 % (0-2.0); HEMATOCRIT 25.1 % (32.4-45.2); HEMOGLOBIN 7.3 GM/dL (10.7-15.3); LYMPH % 5.6 % (8-40); MCH 20.7 pg (25.7-33.7); MCHC 29.1 g/dl (32.0-36.0); MEAN PLT VOLUME 8.5 fl (7.5-11.1); MONO % 3.7 % (3.8-10.2); NEUT % 88.1 % (42.8-82.8); PLATELET COUNT 621 K/MM3 (134-434); RBC 3.54 M/mm3 (3.60-5.2); RDW 17.8 % (11.6-15.6)
[2019-07-15 01:11] LABS: WHITE BLOOD COUNT 37.2 K/mm3 (4.0-10.0)
[2019-07-15 01:33] LABS: PROTHROMBIN TIME (PATIENT) 35.8 SEC (9.7-13.0)
[2019-07-15 01:38] LABS: ALBUMIN 1.3 g/dl (3.4-5.0); BILIRUBIN,TOTAL 1.7 mg/dL (0.2-1); BLOOD UREA NITROGEN 72.7 mg/dL (7-18); CREATININE 3.1 mg/dL (0.55-1.3); POTASSIUM 4.6 mmol/L (3.5-5.1); TOT PROT 4.3 g/dl (6.4-8.2)
[2019-07-15 01:48] LABS: CALCIUM 6.6 mg/dL (8.5-10.1)
[2019-07-15 01:53] VITALS: BMI 30.8
--- NOTE | 2019-07-15 02:07 | PN ---
Teaching Attending Note Name of Resident: Mimi Knowles ATTENDING PHYSICIAN STATEMENT I saw and evaluated the patient. I reviewed the resident's note and discussed the case with the resident. I agree with the resident's findings and plan as documented. SUBJECTIVE: 69yo woman with uncertain medical history brought in by son- John for weakness, and lethargy. As per son, patient did not have any specific complaints other than lethargy. Patient was seen by son on toilet around 6pm and was too week to stand up. Subsequently brought to hospital for further evaluation. OBJECTIVE: Last Vital Signs Temp Pulse Resp BP Pulse Ox 96 F L 68 38 H 90/58 L 100 07/15/19 01:32 07/15/19 01:32 07/15/19 01:32 07/15/19 01:32 07/15/19 01:32 gen -intubated, sedated heent -atraumatic, normocephalic, et tube, NG tube - coffee ground emesis neck supple , right sided IJ cv-s1+s2+ tachycardi chest - coarse breath sounds b/l abdomen -soft, nondistended, decreased bowel sounds ext - no pedal edema Abnormal Lab Results 07/14/19 07/14/19 07/14/19 20:00 20:00 20:00 WBC 48.2 H* RBC Hgb 9.1 L Hct 30.3 L D MCV 69.6 L MCH 20.8 L D MCHC 29.9 L RDW 18.0 H Plt Count 787 H D Absolute Neuts (auto) 43.0 H Neutrophils % 89.3 H D Lymphocytes % 4.4 L D Lymphocytes % (Manual) 6.0 L Monocytes % Monocytes % (Manual) 3 L PT with INR INR PTT (Actin FS) Fibrinogen D-Dimer ABG pH ABG pCO2 at Pt Temp ABG HCO3 ABG O2 Sat (Measured) ABG Base Excess Sodium 128 L Chloride 88 L Carbon Dioxide 14 L Anion Gap 25 H BUN 72.2 H Creatinine 3.6 H Random Glucose 155 H Lactic Acid Calcium 8.1 L Magnesium Total Bilirubin 2.2 H AST 87 H Alkaline Phosphatase 128 H Ammonia Creatine Kinase 1571 H CK-MB (CK-2) 39.0 H Troponin I 0.14 H 0.14 H Total Protein 5.6 L Albumin 1.8 L Urine Protein Urine Nitrite Urine Bilirubin Ur Leukocyte Esterase 07/14/19 07/14/19 07/14/19 20:00 20:00 20:00 WBC RBC Hgb Hct MCV MCH MCHC RDW Plt Count Absolute Neuts (auto) Neutrophils % Lymphocytes % Lymphocytes % (Manual) Monocytes % Monocytes % (Manual) PT with INR 35.40 H INR 2.97 H PTT (Actin FS) Fibrinogen D-Dimer ABG pH ABG pCO2 at Pt Temp ABG HCO3 ABG O2 Sat (Measured) ABG Base Excess Sodium Chloride Carbon Dioxide Anion Gap BUN Creatinine Random Glucose Lactic Acid 10.1 H* Calcium Magnesium 3.4 H Total Bilirubin AST Alkaline Phosphatase Ammonia Creatine Kinase CK-MB (CK-2) Troponin I Total Protein Albumin Urine Protein Urine Nitrite Urine Bilirubin Ur Leukocyte Esterase 07/14/19 07/14/19 07/14/19 20:00 20:00 20:00 WBC RBC Hgb Hct MCV MCH MCHC RDW Plt Count Absolute Neuts (auto) Neutrophils % Lymphocytes % Lymphocytes % (Manual) Monocytes % Monocytes % (Manual) PT with INR INR PTT (Actin FS) Fibrinogen D-Dimer ABG pH 7.18 L* ABG pCO2 at Pt Temp 34.4 L ABG HCO3 12.2 L ABG O2 Sat (Measured) 92.2 L ABG Base Excess -14.8 L Sodium Chloride Carbon Dioxide Anion Gap BUN Creatinine Random Glucose Lactic Acid Calcium Magnesium Total Bilirubin AST Alkaline Phosphatase Ammonia 73.00 H Creatine Kinase CK-MB (CK-2) Troponin I Total Protein Albumin Urine Protein 2+ H Urine Nitrite Positive H Urine Bilirubin 3+ H Ur Leukocyte Esterase 2+ H 07/15/19 07/15/19 07/15/19 00:05 00:05 00:05 WBC 37.2 H* RBC 3.54 L Hgb 7.3 L Hct 25.1 L D MCV 71.0 L MCH 20.7 L MCHC 29.1 L RDW 17.8 H Plt Count 621 H D Absolute Neuts (auto) 32.8 H Neutrophils % 88.1 H Lymphocytes % 5.6 L D Lymphocytes % (Manual) Monocytes % 3.7 L Monocytes % (Manual) PT with INR 35.80 H INR 3.00 H PTT (Actin FS) 37.0 H Fibrinogen D-Dimer ABG pH ABG pCO2 at Pt Temp ABG HCO3 ABG O2 Sat (Measured) ABG Base Excess Sodium 133 L Chloride 96 L Carbon Dioxide 16 L Anion Gap 21 H BUN 72.7 H Creatinine 3.1 H Random Glucose 117 H Lactic Acid Calcium 6.6 L* Magnesium Total Bilirubin 1.7 H AST 139 H Alkaline Phosphatase 143 H Ammonia Creatine Kinase CK-MB (CK-2) Troponin I Total Protein 4.3 L Albumin 1.3 L Urine Protein Urine Nitrite Urine Bilirubin Ur Leukocyte Esterase 07/15/19 07/15/19 07/15/19 00:05 00:05 00:30 WBC RBC Hgb Hct MCV MCH MCHC RDW Plt Count Absolute Neuts (auto) Neutrophils % Lymphocytes % Lymphocytes % (Manual) Monocytes % Monocytes % (Manual) PT with INR INR PTT (Actin FS) Fibrinogen > 500.0 H D-Dimer 3763 H ABG pH 7.07 L* ABG pCO2 at Pt Temp ABG HCO3 11.6 L ABG O2 Sat (Measured) 89.3 L ABG Base Excess -17.0 L Sodium Chloride Carbon Dioxide Anion Gap BUN Creatinine Random Glucose Lactic Acid 8.9 H* Calcium Magnesium Total Bilirubin AST Alkaline Phosphatase Ammonia Creatine Kinase CK-MB (CK-2) Troponin I Total Protein Albumin Urine Protein Urine Nitrite Urine Bilirubin Ur Leukocyte Esterase 07/15/19 00:30 WBC RBC Hgb Hct MCV MCH MCHC RDW Plt Count Absolute Neuts (auto) Neutrophils % Lymphocytes % Lymphocytes % (Manual) Monocytes % Monocytes % (Manual) PT with INR INR PTT (Actin FS) Fibrinogen D-Dimer ABG pH ABG pCO2 at Pt Temp ABG HCO3 ABG O2 Sat (Measured) ABG Base Excess Sodium Chloride Carbon Dioxide Anion Gap BUN Creatinine Random Glucose Lactic Acid Calcium Magnesium Total Bilirubin AST Alkaline Phosphatase Ammonia 467.90 H Creatine Kinase CK-MB (CK-2) Troponin I Total Protein Albumin Urine Protein Urine Nitrite Urine Bilirubin Ur Leukocyte Esterase first ekg showed afib with RVR ct -abdomen and pelvis showed multifocal pneumonia, free air intraperitoneally- likely perforated bowel, retroperitoneal lymphadenopathy ASSESSMENT AND PLAN: #Critically ill septic shock secondary to perforated viscus and multi focal community acquired pneumonia with HAGMA, severe lactic acidosis,severe leukocytosis, metabolic acidosis respiratory failure, MODS, anemia, thrombocytosis, acute renal failure, hyperbiliribuinemia, troponinemia. Coffee ground emesis found per NG tube. +hypoalbuminemia. Patient is on vasopressor support and mechanical ventilation. +new onset afib, tropinemia. -icu management -c/w pressor support -trend lactate -blood, urine, tracheal aspirate cultures -urine legionella ag -glucose control -NPO for now -IV fluid hydration -abg -replace electrolytes prn -cefepime, vancomcyin, azithromyin, metronidazole -schulte catheter -monitor renal output -arterial line -surgery consulted -Dr. Paredes about bowel perforation -renal, ID, pulm, GI consults -retroperitoneal lymphadenoapathy- may be from infection vs malignancy- consider heme/onc eval -dvt ppx -patient is full code as per family wishes 50 minutes spent on this critically ill patient
[2019-07-15 02:12] LABS: ANISOCYTOSIS 1+; PLATELET ESTIMATE INCREASED
[2019-07-15] MEDS ORDERED: SODIUM CHLORIDE 1,000 ML with SODIUM BICARBONATE 8.4% - 100 MEQ IV ONE (02:15)
[2019-07-15] MEDS ORDERED: SODIUM BICARBONATE 8.4% 50 MEQ/50 ML VIAL ONE ×2 (02:46→14:13)
[2019-07-15] MEDS ORDERED: SODIUM CHLORIDE IV ONE (03:00)
[2019-07-15] MEDS ORDERED: SODIUM BICARBONATE IV ONE (03:00)
--- NOTE | 2019-07-15 03:50 | PROC ---
Procedure Note Procedure: Right radial arterial line placed without complications. Indication- close BP monitoring in setting of septic shock. Consent is in chart. Time out was performed prior to procedure.
[2019-07-15] MEDS ORDERED: fentaNYL CITRATE 250 MCG/5 ML VIAL ONE ×3 (04:23→19:41)
[2019-07-15] MEDS ORDERED: VASOPRESSIN 20 UNITS/ML VIAL IV ONE ×2 (04:24→20:26)
[2019-07-15 05:11] LABS: BASO % 0.3 % (0-2.0); EOS % 2.1 % (0-4.5); HEMATOCRIT 25.9 % (32.4-45.2); HEMOGLOBIN 7.8 GM/dL (10.7-15.3); LYMPH % 6.9 % (8-40); MCH 21.2 pg (25.7-33.7); MCHC 30.4 g/dl (32.0-36.0); MEAN CELL VOLUME 69.8 fl (80-96); MEAN PLT VOLUME 8.4 fl (7.5-11.1); MONO % 2.5 % (3.8-10.2); NEUT % 88.2 % (42.8-82.8); PLATELET COUNT 598 K/MM3 (134-434); RDW 18.1 % (11.6-15.6)
[2019-07-15 05:16] LABS: WHITE BLOOD COUNT 33.6 K/mm3 (4.0-10.0)
[2019-07-15 05:40] LABS: ALBUMIN 1.4 g/dl (3.4-5.0); BILIRUBIN,TOTAL 2.2 mg/dL (0.2-1); BLOOD UREA NITROGEN 73.1 mg/dL (7-18); MAGNESIUM 2.7 mg/dL (1.8-2.4); POTASSIUM 4.6 mmol/L (3.5-5.1); TOT PROT 4.5 g/dl (6.4-8.2)
[2019-07-15 05:52] LABS: CALCIUM 6.4 mg/dL (8.5-10.1)
[2019-07-15] MEDS ORDERED: PHYTONADIONE 10 MG/1 ML AMP IVPB ONE (07:00)
[2019-07-15] MEDS: VASOPRESSIN 50 UNITS in SODIUM CHLORIDE 97.5 ML IVPB SCH (07:00)
[2019-07-15] MEDS ORDERED: SODIUM CHLORIDE 1,000 ML IV STA (07:13)
[2019-07-15 07:17] LABS: ARTERIAL BLD GAS O2 SATURATION 83.9 % (95-98); ARTERIAL BLOOD GAS BASE EXCESS -12.4 meq/l (-2-2); ARTERIAL BLOOD GAS PCO2 35.9 mmHg (35-45); ARTERIAL BLOOD GAS PO2 63.2 mmHg (80-100); ARTERIAL BLOOD GAS pH 7.22 (7.35-7.45)
[2019-07-15] MEDS ORDERED: SODIUM CHLORIDE 1,000 ML IV SCH ×2 (07:22→07:58)
--- NOTE | 2019-07-15 07:24 | CONSULT ---
- Consultation REQUESTING PROVIDER: Zoe Anderson DO CONSULT REQUEST: We have been asked to surgically evaluate this patient for pneumoperitoneum. PCP:Gus Tavera MD HISTORY OF PRESENT ILLNESS: CTSP who is a 69 y/o female found at home ? unresponsive/lethargic and BIBA w/family; patient was intubated and w/u ensued and she was found to have pneumoperitoneum; upon initial consultation I advised aggressive fluid resuscitation and IVAB's and pressor support as needed. PMHx: unknown PSHx: none known Allergies Allergy/AdvReac Type Severity Reaction Status Date / Time No Known Allergies Allergy Verified 07/14/19 19:46 REVIEW OF SYSTEMS: unable to obtain PHYSICAL EXAM: GENERAL: Intubated and sedated in ICU HEAD: Normal with no signs of trauma. EYES: sclera anicteric, conjunctiva clear. NECK: without lymphadenopathy, JVD, or masses. ABDOMEN: Soft, tender (despite Fentabyl gtt ), distended, absent bowel sounds, no masses. No organomegaly. No hernias; no scars. UPPER EXTREMITIES: 2+ pulses, warm, well-perfused. No cyanosis. Cap refill <2 seconds. No peripheral edema. LOWER EXTREMITIES: 2+ pulses, warm, well-perfused. No calf tenderness. No peripheral edema. NEUROLOGICAL: speech, gait not observed. PSYCH: intubated and unable to assess. SKIN: Warm, dry, normal turgor, no rashes or lesions noted. Vital Signs Temperature 98.3 F 07/15/19 06:00 Pulse Rate 86 07/15/19 06:00 Respiratory Rate 33 H 07/15/19 06:00 Blood Pressure 112/58 L 07/15/19 06:00 O2 Sat by Pulse Oximetry (%) 90 L 07/15/19 04:08 Lab Results WBC 33.6 K/mm3 (4.0-10.0) H* 07/15/19 04:40 RBC 3.70 M/mm3 (3.60-5.2) 07/15/19 04:40 Hgb 7.8 GM/dL (10.7-15.3) L 07/15/19 04:40 Hct 25.9 % (32.4-45.2) L 07/15/19 04:40 MCV 69.8 fl (80-96) L 07/15/19 04:40 MCHC 30.4 g/dl (32.0-36.0) L 07/15/19 04:40 RDW 18.1 % (11.6-15.6) H 07/15/19 04:40 Plt Count 598 K/MM3 (134-434) H 07/15/19 04:40 Sodium 130 mmol/L (136-145) L 07/15/19 04:40 Potassium 4.6 mmol/L (3.5-5.1) 07/15/19 04:40 Chloride 95 mmol/L (98-107) L 07/15/19 04:40 Carbon Dioxide 15 mmol/L (21-32) L 07/15/19 04:40 Anion Gap 20 MMOL/L (8-16) H 07/15/19 04:40 BUN 73.1 mg/dL (7-18) H 07/15/19 04:40 Creatinine 3.0 mg/dL (0.55-1.3) H 07/15/19 04:40 Random Glucose 132 mg/dL (74-106) H 07/15/19 04:40 Calcium 6.4 mg/dL (8.5-10.1) L* 07/15/19 04:40 Blood Type O POSITIVE 07/15/19 00:05 Antibody Screen Negative 07/14/19 20:00 INR 3.00 (0.83-1.09) H 07/15/19 00:05 CT scan a/p reviewed; films and report Labs reviewed Hospital course to date reviewed IMP: pneumoperitoneum PLAN: Aggressive fluid resuscitation; IVABS; pressor support as needed; correct coagulopathy; ventilatory support; NGT; H2 blockers; patient should ideally be explored for the source of the perforation h/e at this time she is a prohibitive operative risk and is at risk for serious complications from surgery including a 53% risk for as c/w 4.6% in an average risk patient; in addition the patient is an above average risk for complications in 10/03 other categories excluding as calculated by the ACS NSQIP Surgical Risk Calculator. George Paredes MD FACS
[2019-07-15 07:57] LABS: PLATELET ESTIMATE INCREASED
[2019-07-15] MEDS: FENTANYL INJECTION 500 MCG in DEXTROSE 5%-WATER - 90 ML IVPB SCH ×2 (08:07→19:58)
--- NOTE | 2019-07-15 08:45 | PN ---
Progress Note (short form) - Note Progress Note: ID consult dictated imp/reccd severe sepsis with multiorgan failure -intubated in renal failure pneumoperitoneum pneumonia- most likely aspiration coagulopathy possible malignancy ?cirrhosis coffee grounds in NGT pen allergy son reports pen allergy as a child- history from resident given vancomycin/cefepime/flagyl asked to see for antibiotic management she is on 2 pressors in multiorgan failure on exam upper legs and back are mottled overall prognosis is grave will switch to meropenem/flagyl to cover abd/aspiration f/u cultures stool culture and cdiff f/u with surgery over 45 minutes spent in the care of this critically ill ICU patient Problem List - Problems (1) Severe sepsis Code(s): A41.9 - SEPSIS, UNSPECIFIED ORGANISM; R65.20 - SEVERE SEPSIS WITHOUT SEPTIC SHOCK (2) Multiorgan failure Code(s): VHE8446 - (3) Pneumoperitoneum Code(s): K66.8 - OTHER SPECIFIED DISORDERS OF PERITONEUM (4) Pneumonia Code(s): J18.9 - PNEUMONIA, UNSPECIFIED ORGANISM (5) Coagulopathy Code(s): D68.9 - COAGULATION DEFECT, UNSPECIFIED (6) Coffee ground emesis Code(s): K92.0 - HEMATEMESIS (7) Penicillin allergy Code(s): Z88.0 - ALLERGY STATUS TO PENICILLIN
[2019-07-15] MEDS: PANTOPRAZOLE SODIUM 80 MG in SODIUM CHLORIDE 100 ML IVPB SCH (09:35)
--- NOTE | 2019-07-15 09:55 | CON.CARD ---
Consult Consult Specialty:: Cardiolotgy - History of Present Illness History of Present Illness: 69 y.o. F PMH is unclear but has has anemia in past presenting for AMS. Patient was unresponsive on my initial encounter so history is obtained as per ED. Patient was found down unresponsive and mentating less than baseline as per her son. Pt lives by herself; For 4 days she was refusing to perform ADLs, had poor hygiene and has not been eating or drinking. She was also having nonbloody diarrhea for the past few days. On arrival she was found to be bradycardic to the 30s d/t cardizem administration by EMS (as per EMS was in A-fib w/ RVR) but then became tachy to the 170s in ED. 2 large bore IVs were placed and she received 2L total IVF boluses. On admission patient was responding to ED staff. She was then transferred to ICU. In ICU pt had multiple episodes coffee ground emesis- NGT placed. In ICU when she became unresponsive and was subsequently intubated. Central line placed w/ consent from family members. ER course was notable for: (1)Tang to 30s then Tachy to 170s; BP 98/72 (2) WBC 48.2, Lactate 10.1 (3)ABG: pH 7.18 (4) CMP: Na 128, Cl 88, Co2 14, anion gap 25, BUN/Cr 72.2/3.6 (5) UA: 2+ protein, + nitrites, 2+ LE, 3+ bilirubin. Recent Travel: unknown - History Source History Provided By: Medical Record - Alcohol/Substance Use Hx Alcohol Use: No - Smoking History Smoking history: Unknown if ever smoked Home Medications - Allergies Allergies/Adverse Reactions: Allergies Allergy/AdvReac Type Severity Reaction Status Date / Time Penicillins AdvReac Verified 07/15/19 08:40 Review of Systems Unable to obtain ROS, reason: intubated sedated Vital Signs: Vital Signs Temperature 100.7 F H 07/15/19 08:00 Pulse Rate 98 H 07/15/19 08:03 Respiratory Rate 33 H 07/15/19 09:47 Blood Pressure 127/62 07/15/19 08:03 O2 Sat by Pulse Oximetry (%) 90 L 07/15/19 09:47 Constitutional: Yes: Well Nourished, No Distress, Calm Eyes: Yes: WNL, Conjunctiva Clear, EOM Intact HENT: Yes: WNL, Atraumatic, Normocephalic Neck: Yes: WNL, Supple, Trachea Midline Respiratory: Yes: Intubated, Mechanically Ventilated Gastrointestinal: Yes: WNL, Normal Bowel Sounds Renal/: Yes: WNL Cardiovascular: Yes: WNL, Regular Rate and Rhythm Musculoskeletal: Yes: WNL Extremities: Yes: WNL Integumentary: Yes: WNL ...Motor Strength: WNL Psychiatric: Yes: WNL, Alert, Oriented - Other Data Labs, Other Data: CBC, BMP 07/15/19 04:40 07/15/19 04:40 INR, PTT INR 3.00 (0.83-1.09) H 07/15/19 00:05 Fibrinogen > 500.0 mg/dL (238-498) H 07/15/19 00:05 Troponin, BNP 07/14/19 07/14/19 07/15/19 20:00 20:00 04:40 Troponin I 0.14 H 0.14 H 0.26 H Troponin, BNP 07/14/19 07/14/19 07/15/19 20:00 20:00 04:40 Troponin I 0.14 H 0.14 H 0.26 H Imaging - Results Chest X-ray: Image Reviewed EKG: Image Reviewed (sr rep abn) Problem List - Problems (1) Acidosis Code(s): E87.2 - ACIDOSIS (2) Altered mental status Code(s): R41.82 - ALTERED MENTAL STATUS, UNSPECIFIED Qualifiers: Altered mental status type: stupor Qualified Code(s): R40.1 - Stupor (3) Coffee ground emesis Code(s): K92.0 - HEMATEMESIS (4) Elevated INR Code(s): R79.1 - ABNORMAL COAGULATION PROFILE (5) Hyperammonemia Code(s): E72.20 - DISORDER OF UREA CYCLE METABOLISM, UNSPECIFIED (6) Lactic acidosis Code(s): E87.2 - ACIDOSIS (7) Renal failure Code(s): N19 - UNSPECIFIED KIDNEY FAILURE Qualifiers: Renal failure chronicity: acute Acute renal failure type: unspecified Qualified Code(s): N17.9 - Acute kidney failure, unspecified (8) Rhabdomyolysis Code(s): M62.82 - RHABDOMYOLYSIS Qualifiers: Rhabdomyolysis type: non-traumatic Qualified Code(s): M62.82 - Rhabdomyolysis (9) Severe sepsis Code(s): A41.9 - SEPSIS, UNSPECIFIED ORGANISM; R65.20 - SEVERE SEPSIS WITHOUT SEPTIC SHOCK (10) UTI (urinary tract infection) Code(s): N39.0 - URINARY TRACT INFECTION, SITE NOT SPECIFIED Qualifiers: Urinary tract infection type: acute cystitis Hematuria presence: without hematuria Qualified Code(s): N30.00 - Acute cystitis without hematuria Assessment/Plan Acute Hypoxic Respiratory Failure Pneumoperitoneum/ r/o Perforated Viscous PAF in NSR now Pneumonia ARDS Septic Shock Lactic Acidosis Acute Kidney Injury +Troponins likely Demand Ischemia Hyponatremia Elevated LFTs likely Ischemic Injury r/o GI Bleed Coagulopathy r/o Pelvic Mass Anemia Thrombocytosis Plan; pressors abx IVF will f/u echo respiratory support cc time spent 70 min
[2019-07-15] MEDS ORDERED: PNEUMOC 13-VAL CONJ-DIP CRM/PF 0.5 ML DISP.SYRIN IM ONE (10:00)
[2019-07-15] MEDS ORDERED: AZITHROMYCIN IVPB 500 MG/250 ML BAG IVPB SCH (10:00)
[2019-07-15] MEDS: PROPOFOL 1,000,000 MCG/100 ML VIAL IVPB SCH (10:25)
[2019-07-15] MEDS ORDERED: MEROPENEM 1 GM VIAL (RESTRICTED TO ID) IVPB ONE ×2 (10:31→21:52)
[2019-07-15] MEDS: MUPIROCIN 2% TOPICAL OINTMENT FOR DECOLONIZATION NS SCH ×2 (10:48→21:54)
[2019-07-15] MEDS: MEROPENEM 1 GM in DEXTROSE 5%-WATER 100 ML IVPB SCH ×2 (10:48→21:55)
[2019-07-15] MEDS: SODIUM BICARBONATE 8.4% - 150 MEQ in DEXTROSE 5%-WATER - 1,000 ML IV SCH ×2 (10:49→21:54)
--- NOTE | 2019-07-15 11:03 | EKG ---
Test Reason : Blood Pressure : / mmHG Vent. Rate : 085 BPM Atrial Rate : 085 BPM P-R Int : 176 ms QRS Dur : 102 ms QT Int : 434 ms P-R-T Axes : 052 000 115 degrees QTc Int : 516 ms SINUS RHYTHM WITH OCCASIONAL PREMATURE VENTRICULAR COMPLEXES AND PREMATURE ATRIAL COMPLEXES ANTERIOR INFARCT (CITED ON OR BEFORE 23-SEP-2015) PROLONGED QT ABNORMAL ECG WHEN COMPARED WITH ECG OF 14-JUL-2019 19:40, SINUS RHYTHM HAS REPLACED ATRIAL FIBRILLATION VENT. RATE HAS DECREASED BY 50 BPM T WAVE INVERSION NO LONGER EVIDENT IN INFERIOR LEADS T WAVE AMPLITUDE HAS DECREASED IN ANTERIOR LEADS Confirmed by JESSICA ROJAS, SOHEILA ([id number]) on 07/15/2019 11:02:47 AM Referred By: Veronika DEVLIN Confirmed By:SOHEILA LOPEZ MD
--- NOTE | 2019-07-15 11:05 | EKG ---
Test Reason : Blood Pressure : / mmHG Vent. Rate : 135 BPM Atrial Rate : 147 BPM P-R Int : 000 ms QRS Dur : 108 ms QT Int : 348 ms P-R-T Axes : 000 010 167 degrees QTc Int : 522 ms ATRIAL FIBRILLATION WITH RAPID VENTRICULAR RESPONSE ANTERIOR INFARCT (CITED ON OR BEFORE 23-SEP-2015) ABNORMAL ECG WHEN COMPARED WITH ECG OF 23-SEP-2015 12:08, SIGNIFICANT CHANGES HAVE OCCURRED Confirmed by JESSICA ROJAS, SOHEILA ([id number]) on 07/15/2019 11:05:19 AM Referred By: Confirmed By:SOHEILA LOPEZ MD
--- NOTE | 2019-07-15 11:19 | EKG ---
Test Reason : Blood Pressure : / mmHG Vent. Rate : 077 BPM Atrial Rate : 077 BPM P-R Int : 182 ms QRS Dur : 112 ms QT Int : 480 ms P-R-T Axes : 050 009 136 degrees QTc Int : 543 ms NORMAL SINUS RHYTHM INCOMPLETE LEFT BUNDLE BRANCH BLOCK PROLONGED QT ABNORMAL ECG WHEN COMPARED WITH ECG OF 14-JUL-2019 19:40, SINUS RHYTHM HAS REPLACED ATRIAL FIBRILLATION VENT. RATE HAS DECREASED BY 58 BPM T WAVE INVERSION NO LONGER EVIDENT IN INFERIOR LEADS NONSPECIFIC T WAVE ABNORMALITY NOW EVIDENT IN ANTERIOR LEADS Confirmed by JESSICA ROJAS, SOHEILA ([id number]) on 07/15/2019 11:18:55 AM Referred By: Confirmed By:SOHEILA LOPEZ MD
--- NOTE | 2019-07-15 12:05 | CONSULT ---
Consult - text type - Consultation Consultation Note: Renal consult for acute renal injury and metabolic acidosid This is a 69 year old woman with history of depression, glaucoma, glucose intolerance who presented from home with altered mental status and found to have sepsis syndrome and septic shock with acute renal injury and metabolic acidosis. Baseline Cr is 0.6 as of 2016. Seen and examined in the ICU. On the Vent via ET tube. On Levophed. Sedated on propofol. FiO2 is 100%. Making dark urine via schulte. PMhx: as above Allergies: NKDA Family Hx: NC Social Hx: No T/A/D ROS: unable to obtain because of clinical status. Vital Signs Temperature 101.5 F H 07/15/19 10:36 Pulse Rate 94 H 07/15/19 10:53 Respiratory Rate 33 H 07/15/19 10:36 Blood Pressure 128/99 07/15/19 10:53 O2 Sat by Pulse Oximetry (%) 90 L 07/15/19 09:47 Intake & Output 07/12/19 07/13/19 07/14/19 07/15/19 23:59 23:59 23:59 23:59 Intake Total 4460 Output Total 0 500 Balance 0 3960 Weight 81.647 kg 78.925 kg Sedated on vent via ET tube neck supple RRR, no M/R Adam BS, no overt rales distended and tense abd no LE edema, clubbing or cyanosis no bladder distension CBC, BMP 07/15/19 04:40 07/15/19 04:40 Laboratory Tests 07/14/19 07/14/19 07/15/19 20:00 20:00 00:05 Carbon Dioxide 14 L 16 L BUN 72.2 H 72.7 H Creatinine 3.6 H 3.1 H Lactic Acid 10.1 H* 07/15/19 07/15/19 07/15/19 00:05 04:40 04:40 Carbon Dioxide 15 L BUN 73.1 H Creatinine 3.0 H Lactic Acid 8.9 H* 5.7 H* Current Medications Chlorhexidine Gluconate (Hibiclens For Decolonization -) 1 applic TP HS [facility] Hydrocortisone Sodium Succinate (Solu-Cortef -) 100 mg IVPB Q8H-IV [facility] Metronidazole (Flagyl 500mg Premixed Ivpb -) 500 mg in 100 mls @ 100 mls/hr IVPB Q8H-IV [facility] Last Admin: 07/15/19 09:32 Dose: 100 mls/hr Norepinephrine Bitartrate 8, (000 mcg/ Dextrose) 500 mls @ 18.75 mls/hr IV TITR [facility]; Protocol Last Titration: 07/15/19 10:53 Dose: 20 mcg/min, 75 mls/hr Fentanyl 500 mcg/ Dextrose 100 mls @ 1 mls/hr IVPB TITR [facility]; Protocol Last Titration: 07/15/19 10:51 Dose: 50 mcg/hr, 10 mls/hr Vasopressin 50 units/ Sodium (Chloride) 100 mls @ 24 mls/hr IVPB TITR [facility]; Protocol Last Titration: 07/15/19 10:51 Dose: 0.1 units/min, 12 mls/hr Meropenem 1 gm/ Dextrose 100 mls @ 200 mls/hr IVPB BID [facility] Last Admin: 07/15/19 10:48 Dose: 200 mls/hr Sodium Bicarbonate 150 meq/ (Dextrose) 1,150 mls @ 100 mls/hr IV Q11H [facility] Last Admin: 07/15/19 10:49 Dose: 100 mls/hr Propofol (Diprivan -) 1,000,000 mcg in 100 mls @ 2.368 mls/hr IVPB TITR [facility]; Protocol Mupirocin (Bactroban Ointment (For Decolonization) -) 1 applic NS BID [facility] Stop: 07/20/19 09:59 Last Admin: 07/15/19 10:48 Dose: 1 applic Pantoprazole Sodium (Protonix Iv) 40 mg IVPUSH BID [facility] 69 year old woman with history of depression, glaucoma, glucose intolerance who presented from home with altered mental status and found to have sepsis syndrome and septic shock with acute renal injury and metabolic acidosis. Baseline Cr is 0.6 as of 2016. 1. Acute renal injury in setting of sepsis/hypoprofusion r/o ATN 2. Anion gap metabolic acidosis/Lactic acidosis 3. Sepsis syndrome/Septic shock 4. Hypovolemic hyponatremia 5. Pseudohypocalcemia 6. Acute Anemia 7. Thrombocytosis Check urine studies for FeNa and UPCR. No emergent indication for dialysis this time. pt is now making urine, monitor strict I and O Check BMP Q12h to monitor the bicarb, potassium and renal function Keep MAP > 65, CVP goal 10-12 Continue isotnic fluids Continue bicarb gtt for now, can d/c if ph > 7.3 on repeat ABG. Should maintain profusion with IVF and vasopresser as underlying etiology likely lactic acidosis +/- renal insufficiency. corrected Ca is WNL (monitor Ca while on bicarb gtt) Trend H/H, transfuse as per ICU protocol ICU monitoring Prognosis is guarded. Bay Villanueva DO
[2019-07-15] MEDS ORDERED: PT OWN MED DRAWER 7, Y5N ONE (12:11)
--- NOTE | 2019-07-15 12:18 | CONS ---
INFECTIOUS DISEASE CONSULTATION DATE OF CONSULTATION: DATE OF DICTATION: 07/15/2019 REQUESTED BY: The hospitalist service. HISTORY OF PRESENT ILLNESS: The patient is a 69-year-old, woman who presented to the emergency room for change in mental status. She was apparently found unresponsive by her son lying on the floor. Her son lives with her at home. For the last 3-4 days, she has not been eating and she has been getting progressively weaker. She has been also having watery stool which he reports for several months. She has not wanted to go to the doctor. When he found her on the ground, he was able to summon help. She has refused to shower, eat or drink at home, per the ER. When she came to the ER, she was covered in dirt, urine, and feces. She was originally in atrial fibrillation and then she became bradycardic. She had IVs placed and started receiving fluid and was on admission to the ER complaining of abdominal pain. She is apparently allergic to PENICILLIN, per the son. Medications are not known. It is unclear if she was getting any medical care. She had an ER evaluation that included multiple CAT scans that were significant for a pneumoperitoneum and right middle lobe and bilateral lower lobe infiltrates. There was also felt to be an [id number], irregular mass in the pelvis. She had a cervical and head CT done, as well. There was no evidence of any fracture of the C-spine and the head CT showed no acute intracranial pathology. She was admitted to the ICU. In the ICU, she had multiple episodes of coffee- ground emesis. An NG tube was placed. She became unresponsive and was intubated. She had a central line placed, as well. She was started on pressors. She is currently on both Levophed and vasopressin. She is receiving fluids and she is unresponsive. She received vansomycin, cefepime and flagyl. PAST MEDICAL HISTORY: Notable for anemia. Nothing else is known. SURGICAL HISTORY: Unknown. SOCIAL HISTORY: Unknown. She apparently lives alone. ALLERGIES: Per the son, she is allergic to PENICILLIN. REVIEW OF SYSTEMS: As well, per the son, is that she has been having watery diarrhea for a long time and that she has refused to go for medical care. PHYSICAL EXAMINATION: Vital Signs: Her temperature is 100.7, currently rectally is her T-maximum, pulse of 89, blood pressure 127/62, respiratory rate is 33. She is on 100% on the ventilator, saturating 90%. HEENT: She is orally intubated. Lungs: Have crackles at the bases. Heart: Regular rate and rhythm. Abdomen: Soft. She has minimal bowel sounds. Neurologic: She is sedated. I am not able to appreciate any pain. Extremities: She is mottled per her upper thighs, as well as her flanks bilaterally. LABORATORIES: Notable for admission white count was 48,000, today is 33.6, hemoglobin 7.8, platelets are 598. Her INR is 3. Her BUN is 73 and creatinine is 3. Her bicarbonate is 15, on admission was 14. Her admission lactic acid is 10, currently 5.7. LFTs: Alkaline phosphatase is 145. CK is elevated at 3310. Urinalysis shows 3+ bilirubin, 2+ leuks with 37 white cells and cultures are pending. IMAGING: She had an ultrasound of her kidney and bladder, as well, that is notable for a small amount of ascites and suspected cirrhosis. She received vancomycin, cefepime, and Flagyl. In summary, this is a 69-year-old, woman whom I am asked to see for antibiotic management. She has severe sepsis with multi-organ failure, pneumoperitoneum, pneumonia most likely aspiration, coagulopathy, possible malignancy, possible liver cirrhosis, and coffee-ground emesis, as well as history of PENICILLIN allergy. Her exam was notable for mottling of her upper legs and back. Her overall prognosis is quite grave. She was seen by surgery who feels she is at prohibitive risk for surgery and the ICU team is attempting to stabilize her medically I would switch her to meropenem and Flagyl to cover abdomen and aspiration pneumonia. Would follow up her cultures. Would adjust her antibiotics for her renal failure and follow up with Surgery. Over 45 minutes were spent in the care of this critically ill patient. CATHY YEPEZ M.D. [id number] MTDD
[2019-07-15] MEDS: HYDROCORTISONE SOD SUCCINATE 100 MG/2 ML VIAL IVPB SCH ×2 (12:26→18:28)
--- NOTE | 2019-07-15 12:32 | ECHO ---
Name: JESSICA PYLE Exam:Adult Echocardiogram Study Date: 07/15/2019 07:29 AM Age: 69 yrs Reason For Study: Cardiomegaly/ Poss pericardial effusion Height: 63 in Weight: 130 lb BSA: 1.6 m2 MMode/2D Measurements & Calculations IVSd: 1.6 cm Ao root diam: 3.1 cm LVIDd: 3.7 cm LA dimension: 5.4 cm LVIDs: 3.2 cm ACS: 2.2 cm LVPWd: 1.2 cm EDV(Teich): 58.1 ml LVOT diam: 2.0 cm ESV(Teich): 41.9 ml RV S Prince: 20.2 cm/sec Doppler Measurements & Calculations MV E max prince: 96.8 cm/sec MV A max prince: 113.2 cm/sec MV dec slope: 332.4 cm/sec2 MV E/A: 0.85 TR max prince: 251.8 cm/sec Med Peak E' Prince: 9.0 cm/sec TR max P.4 mmHg Med E/e': 10.7 Lat Peak E' Prince: 13.7 cm/sec Lat E/e': 7.1 Procedure The study was technically difficult with many images being suboptimal in quality. The study was non-d iagnostic in quality. No definitive statements could be made about this echo due to extremely poor acoustic win dows. Left Ventricle The left ventricle is grossly normal size. The left ventricle is not well visualized. Due to the poor quality of the echocardiogram, an assessment of left ventricular ejection fraction cannot be made. E/A revers al consistent with but not diagnostic of poor LV compliance. Regional wall motion abnormalities cannot b e excluded due to limited visualization. Right Ventricle The right ventricle is not well visualized. Atria The left atrium is severely dilated. Right atrium not well visualized. Mitral Valve There is mild mitral valve thickening. There is no mitral valve stenosis. There is mild mitral regurg itation. Tricuspid Valve The tricuspid valve is not well visualized. There is no tricuspid stenosis. There is mild tricuspid regurgitation. Right ventricular systolic pressure is normal. Aortic Valve The aortic valve is not well visualized. No hemodynamically significant valvular aortic stenosis. No aortic regurgitation is present. Pulmonic Valve The pulmonic valve is not well visualized. Great Vessels The aortic root is normal size. Pericardium/Pleura There is no pericardial effusion. Interpretation Summary The study was technically difficult with many images being suboptimal in quality. The left ventricle is grossly normal size. The left atrium is severely dilated. There is mild tricuspid regurgitation. Right ventricular systolic pressure is normal. E/A reversal consistent with but not diagnostic of poor LV compliance There is mild mitral regurgitation. The study was non-diagnostic in quality. No definitive statements could be made about this echo due t o extremely poor acoustic windows. The left ventricle is not well visualized. Due to the poor quality of the echocardiogram, an assessment of left ventricular ejection fraction ca nnot be made. Regional wall motion abnormalities cannot be excluded due to limited visualization. MD Robi Mitchell 07/15/2019 12:32 PM
--- NOTE | 2019-07-15 12:52 | PN ---
Teaching Attending Note Name of Resident: Fawad Grier ATTENDING PHYSICIAN STATEMENT I saw and evaluated the patient. I reviewed the resident's note and discussed the case with the resident. I agree with the resident's findings and plan as documented. SUBJECTIVE: Pt seen and examined in the ICU. Remains intubated, sedated on levophed and vasopressin gtts. Minimal urine output. OBJECTIVE: Vital Signs Period Temp Pulse Resp BP Sys/James Pulse Ox Last 24 Hr 96 F-101.5 F 61-140 23-38 78-134/39-99 48-100 Intake & Output 07/12/19 07/13/19 07/14/19 07/15/19 23:59 23:59 23:59 23:59 Intake Total 4460 Output Total 0 500 Balance 0 3960 Weight 81.647 kg 78.925 kg Gen: intubated, sedated, tachypneic Heart: tachycardic, regular Lung: scattered rhonchi Abd: softly distended Ext: + edema, mottled CBC, BMP 07/15/19 04:40 07/15/19 04:40 Active Medications Chlorhexidine Gluconate (Hibiclens For Decolonization -) 1 applic TP HS BERTRAM Hydrocortisone Sodium Succinate (Solu-Cortef -) 100 mg IVPB Q8H-IV BERTRAM Last Admin: 07/15/19 12:26 Dose: 100 mg Metronidazole (Flagyl 500mg Premixed Ivpb -) 500 mg in 100 mls @ 100 mls/hr IVPB Q8H-IV BERTRAM Last Admin: 07/15/19 09:32 Dose: 100 mls/hr Norepinephrine Bitartrate 8, (000 mcg/ Dextrose) 500 mls @ 18.75 mls/hr IV TITR BERTRAM; Protocol Last Titration: 07/15/19 12:36 Dose: 20 mcg/min, 75 mls/hr Fentanyl 500 mcg/ Dextrose 100 mls @ 1 mls/hr IVPB TITR BERTRAM; Protocol Last Titration: 07/15/19 10:51 Dose: 50 mcg/hr, 10 mls/hr Vasopressin 50 units/ Sodium (Chloride) 100 mls @ 24 mls/hr IVPB TITR BERTRAM; Protocol Last Titration: 07/15/19 10:51 Dose: 0.1 units/min, 12 mls/hr Meropenem 1 gm/ Dextrose 100 mls @ 200 mls/hr IVPB BID BERTRAM Last Admin: 07/15/19 10:48 Dose: 200 mls/hr Sodium Bicarbonate 150 meq/ (Dextrose) 1,150 mls @ 100 mls/hr IV Q11H BERTRAM Last Admin: 07/15/19 10:49 Dose: 100 mls/hr Propofol (Diprivan -) 1,000,000 mcg in 100 mls @ 2.368 mls/hr IVPB TITR BERTRAM; Protocol Last Admin: 07/15/19 10:25 Dose: 5 mcg/kg/min, 2.368 mls/hr Mupirocin (Bactroban Ointment (For Decolonization) -) 1 applic NS BID BERTRAM Stop: 07/20/19 09:59 Last Admin: 07/15/19 10:48 Dose: 1 applic Pantoprazole Sodium (Protonix Iv) 40 mg IVPUSH BID [facility] ASSESSMENT AND PLAN: Acute Hypoxic Respiratory Failure Pneumoperitoneum/ r/o Perforated Viscous Pneumonia ARDS Septic Shock Lactic Acidosis Acute Kidney Injury +Troponins likely Demand Ischemia Hyponatremia Elevated LFTs likely Ischemic Injury r/o GI Bleed Coagulopathy r/o Pelvic Mass Anemia Thrombocytosis - continue antibiotics - f/u cultures - IVF resuscitation to keep CVP 8-12 - titrate pressors to maintain MAP >65 - monitor urine output, creatinine - titrate PEEP, FiO2 to keep SpO2 >90% - monitor ABG as pulse oximetry unreliable - low tidal volume ventilation <6cc/kg/IBW - keep Pplat <30 - sedate for vent synchrony - may need paralytics - bicarb gtt per renal - trend cardiac enzymes, lactate - echocardiogram - start empiric stress dose steroids - transfuse FFP - protonix - continue ICU monitoring - prognosis is grave critical care time spent in reviewing chart, evaluating patient and formulating plan 35 min
[2019-07-15] MEDS ORDERED: SODIUM CHLORIDE 500 ML IV STA ×4 (13:10→17:51)
[2019-07-15] MEDS ORDERED: ACETAMINOPHEN 1000 MG/100 ML VIAL (NON FORMULARY) IVPB PRN (13:10)
--- NOTE | 2019-07-15 13:29 | PN ---
Progress Note (short form) - Note Progress Note: Attending Surgeon Seen in f/u and Consultants inputs reviewed. Case d/w family; son and other relative; patient is not a candidate for operative intervention and an attempt at surgery would be medically futile; goals of care and end of life issues are being d/w the family by the ICU staff. George Paredes MD FACS
[2019-07-15 13:42] LABS: ARTERIAL BLD GAS O2 SATURATION 91.5 % (95-98); ARTERIAL BLOOD GAS BASE EXCESS -13.4 meq/l (-2-2); ARTERIAL BLOOD GAS PCO2 38.1 mmHg (35-45)
[2019-07-15 13:54] LABS: ALLENS TEST POSITIVE; ARTERIAL BLOOD GAS PO2 84.1 mmHg (80-100)
[2019-07-15 13:56] LABS: ARTERIAL BLOOD GAS pH 7.18 (7.35-7.45)
[2019-07-15] MEDS ORDERED: SODIUM BICARBONATE 8.4% 50 MEQ/50 ML DISP.SYRIN IVPUSH ONE (14:09)
--- NOTE | 2019-07-15 14:16 | CON.GI ---
Consult Consult Specialty:: Gastroenterology Reason for Consultation:: Coffee ground emesis - History of Present Illness History of Present Illness: 69yo female h/o glaucoma presenting with diarrhea and altered mentation requiring intubation asked to evaluate for coffee ground emesis. Pt intubated/sedated in MICU. Pts son and sister at bedside provide history. Pts son states pt had been reporting nonbloody diarrhea for a few weeks however did not want to seek medical attending. Had not been following with any medical providers recently.Pt had been reportedly taken NSAIDs daily for joint pains. He found pt while on toilet weak and with altered mentation prompting ED evaluation. Pt noted to be bradycardic in ED with episode of coffee ground emesis and subsequently became unresponsive requiring intubation. Approximately 500cc coffee ground material noted in cannister. No bms reported per nursing staff. CT imaging concerning for pneumoperitoneum. Pt remains on pressor support. - History Source History Provided By: Family Member, Medical Record Limitations to Obtaining History: Intubated - Alcohol/Substance Use Hx Alcohol Use: No - Smoking History Smoking history: Unknown if ever smoked Home Medications - Allergies Allergies/Adverse Reactions: Allergies Allergy/AdvReac Type Severity Reaction Status Date / Time Penicillins AdvReac Verified 07/15/19 08:40 Review of Systems Unable to obtain ROS, reason: Pt intubated Physical Exam-GI Vital Signs: Vital Signs Temperature 103.4 F H 07/15/19 13:08 Pulse Rate 97 H 07/15/19 14:10 Respiratory Rate 33 H 07/15/19 13:08 Blood Pressure 117/58 L 07/15/19 14:10 O2 Sat by Pulse Oximetry (%) 90 L 07/15/19 09:47 Constitutional: Yes: Calm (intubated/sedated) Cardiovascular: Yes: WNL, Regular Rate and Rhythm Respiratory: Yes: Mechanically Ventilated ...Palpate: Yes: Other (Abd softly distended, no tenderness elicited) Labs: CBC, BMP 07/15/19 04:40 07/15/19 04:40 INR, PTT INR 3.00 (0.83-1.09) H 07/15/19 00:05 Fibrinogen > 500.0 mg/dL (238-498) H 07/15/19 00:05 Imaging - Results Cat Scan: Image Reviewed Assessment/Plan 69yo female h/o glaucoma with no recent medical follow up presenting with diarrhea and altered mentation subsequently became unresponsive requiring intubation asked to evaluate for coffee ground emesis. CT revealing pneumoperitoneum. Recent NSAID use reported and unable to r/o perforated viscous ?PUD vs pelvic mass. Imaging also suggestive of possible underlying liver disease ?NAFLD/NAILS though sepsis/ischemic injury also likely contributing to biochemical abnormalities. -Continue supportive/resuscitative measures, pressor support per MICU -Would defer endoscopy in absence of overt ongoing GI bleeding and in setting of pneumoperitoneum, as risks would likely outweigh potential benefits at this time -Recommend PPI bid -Monitor Hb and for evidence of bleeding -Correct coagulopathy -Follow up final CT reports -Check stool C difficile -Check hepatitis serologies -Continue goals of care discussion -Further recommendations/management per surgery and MICU teams Discussed with MICU residents
--- NOTE | 2019-07-15 14:23 | PN ---
Physical Exam: SUBJECTIVE: Patient seen and examined at bedside this AM. Pt is sedated on 30 levo and 6 units vaso, max of propofol. OBJECTIVE: Vital Signs Period Temp Pulse Resp BP Sys/James Pulse Ox Last 24 Hr 96 F-103.4 F 61-140 23-38 78-134/39-99 48-100 GENERAL: The patient is intubated and sedated. HEAD: Normal with no signs of trauma. EYES: sluggish pupils NECK: supple. LUNGS: Breath sounds equal, clear to auscultation bilaterally, no wheezes, no crackles, no accessory muscle use. HEART: Regular rate and rhythm, S1, S2 without murmur, rub or gallop. ABDOMEN: nontender, distended, rigid EXTREMITIES: 2+ pulses, warm, well-perfused, no edema. NEUROLOGICAL: sedated, pupils minimally reactive to light, gag reflex present SKIN: mottled appearance on LE's, slight cyanosis on b/l extremities, Laboratory Results - last 24 hr 07/14/19 07/14/19 07/14/19 19:56 20:00 20:00 WBC RBC Hgb Hct MCV MCH MCHC RDW Plt Count MPV Absolute Neuts (auto) Total Counted Neutrophils % Neutrophils % (Manual) Band Neutrophils % Lymphocytes % Lymphocytes % (Manual) Monocytes % Monocytes % (Manual) Eosinophils % Eosinophils % (Manual) Basophils % Myelocytes % (Man) Nucleated RBC % Metamyelocytes Hypochromia Platelet Estimate Platelet Comment Anisocytosis Microcytosis PT with INR INR PTT (Actin FS) Fibrinogen D-Dimer Anticoagulation Therapy Puncture Site ABG pH ABG pCO2 at Pt Temp ABG pO2 at Pt Temp ABG HCO3 ABG O2 Sat (Measured) ABG O2 Content ABG Base Excess Guille Test Carboxyhemoglobin Methemoglobin O2 Delivery Device Oxygen Flow Rate Vent Mode Vent Rate Mechanical Rate PEEP Pressure Support Vent Sodium Potassium Chloride Carbon Dioxide Anion Gap BUN Creatinine Est GFR (CKD-EPI)AfAm Est GFR (CKD-EPI)NonAf POC Glucometer 136 Random Glucose Hemoglobin A1c % Lactic Acid Calcium Phosphorus Magnesium Total Bilirubin AST ALT Alkaline Phosphatase Ammonia Creatine Kinase Creatine Kinase Index CK-MB (CK-2) Troponin I 0.14 H Total Protein Albumin Lipase Urine Color Urine Appearance Urine pH Ur Specific [place] Urine Protein Urine Glucose (UA) Urine Ketones Urine Blood Urine Nitrite Urine Bilirubin Urine Urobilinogen Ur Leukocyte Esterase Urine WBC (Auto) Urine RBC (Auto) Urine Casts (Auto) U Pathogenic Cast Auto U Epithel Cells (Auto) Stool Occult Blood Salicylates 6.0 Opiates Screen Methadone Screen Acetaminophen Barbiturate Screen Phencyclidine Screen Ur Amphetamines Screen MDMA (Ecstasy) Screen Benzodiazepines Screen Cocaine Screen U Marijuana (THC) Screen Alcohol, Quantitative < 3.0 Blood Type Antibody Screen Crossmatch 07/14/19 07/14/19 07/14/19 20:00 20:00 20:00 WBC 48.2 H* RBC 4.35 Hgb 9.1 L Hct 30.3 L D MCV 69.6 L MCH 20.8 L D MCHC 29.9 L RDW 18.0 H Plt Count 787 H D MPV 8.8 Absolute Neuts (auto) 43.0 H Total Counted 100 Neutrophils % 89.3 H D Neutrophils % (Manual) 64.0 Band Neutrophils % 23.0 Lymphocytes % 4.4 L D Lymphocytes % (Manual) 6.0 L Monocytes % 4.4 Monocytes % (Manual) 3 L Eosinophils % 1.8 Eosinophils % (Manual) Basophils % 0.1 Myelocytes % (Man) 2 Nucleated RBC % 0 Metamyelocytes 2 Hypochromia Platelet Estimate Platelet Comment Anisocytosis Microcytosis PT with INR INR PTT (Actin FS) Fibrinogen D-Dimer Anticoagulation Therapy Puncture Site ABG pH ABG pCO2 at Pt Temp ABG pO2 at Pt Temp ABG HCO3 ABG O2 Sat (Measured) ABG O2 Content ABG Base Excess Guille Test Carboxyhemoglobin Methemoglobin O2 Delivery Device Oxygen Flow Rate Vent Mode Vent Rate Mechanical Rate PEEP Pressure Support Vent Sodium 128 L Potassium 4.2 Chloride 88 L Carbon Dioxide 14 L Anion Gap 25 H BUN 72.2 H Creatinine 3.6 H Est GFR (CKD-EPI)AfAm 13.95 Est GFR (CKD-EPI)NonAf 12.04 POC Glucometer Random Glucose 155 H Hemoglobin A1c % Lactic Acid Calcium 8.1 L Phosphorus Magnesium Total Bilirubin 2.2 H AST 87 H ALT 32 Alkaline Phosphatase 128 H Ammonia Creatine Kinase 1571 H Creatine Kinase Index 2.4 CK-MB (CK-2) 39.0 H Troponin I 0.14 H Total Protein 5.6 L Albumin 1.8 L Lipase Urine Color Urine Appearance Urine pH Ur Specific [place] Urine Protein Urine Glucose (UA) Urine Ketones Urine Blood Urine Nitrite Urine Bilirubin Urine Urobilinogen Ur Leukocyte Esterase Urine WBC (Auto) Urine RBC (Auto) Urine Casts (Auto) U Pathogenic Cast Auto U Epithel Cells (Auto) Stool Occult Blood Salicylates Opiates Screen Methadone Screen Acetaminophen <2.0 Barbiturate Screen Phencyclidine Screen Ur Amphetamines Screen MDMA (Ecstasy) Screen Benzodiazepines Screen Cocaine Screen U Marijuana (THC) Screen Alcohol, Quantitative Blood Type Antibody Screen Crossmatch 07/14/19 07/14/19 07/14/19 20:00 20:00 20:00 WBC RBC Hgb Hct MCV MCH MCHC RDW Plt Count MPV Absolute Neuts (auto) Total Counted Neutrophils % Neutrophils % (Manual) Band Neutrophils % Lymphocytes % Lymphocytes % (Manual) Monocytes % Monocytes % (Manual) Eosinophils % Eosinophils % (Manual) Basophils % Myelocytes % (Man) Nucleated RBC % Metamyelocytes Hypochromia Platelet Estimate Platelet Comment Anisocytosis Microcytosis PT with INR INR PTT (Actin FS) Fibrinogen D-Dimer Anticoagulation Therapy Puncture Site ABG pH ABG pCO2 at Pt Temp ABG pO2 at Pt Temp ABG HCO3 ABG O2 Sat (Measured) ABG O2 Content ABG Base Excess Guille Test Carboxyhemoglobin Methemoglobin O2 Delivery Device Oxygen Flow Rate Vent Mode Vent Rate Mechanical Rate PEEP Pressure Support Vent Sodium Potassium Chloride Carbon Dioxide Anion Gap BUN Creatinine Est GFR (CKD-EPI)AfAm Est GFR (CKD-EPI)NonAf POC Glucometer Random Glucose Hemoglobin A1c % Lactic Acid 10.1 H* Calcium Phosphorus Magnesium 3.4 H Total Bilirubin AST ALT Alkaline Phosphatase Ammonia Creatine Kinase Creatine Kinase Index CK-MB (CK-2) Troponin I Total Protein Albumin Lipase Urine Color Urine Appearance Urine pH Ur Specific [place] Urine Protein Urine Glucose (UA) Urine Ketones Urine Blood Urine Nitrite Urine Bilirubin Urine Urobilinogen Ur Leukocyte Esterase Urine WBC (Auto) Urine RBC (Auto) Urine Casts (Auto) U Pathogenic Cast Auto U Epithel Cells (Auto) Stool Occult Blood Salicylates Opiates Screen Negative Methadone Screen Negative Acetaminophen Barbiturate Screen Negative Phencyclidine Screen Negative Ur Amphetamines Screen Negative MDMA (Ecstasy) Screen Negative Benzodiazepines Screen Negative Cocaine Screen Negative U Marijuana (THC) Screen Negative Alcohol, Quantitative Blood Type Antibody Screen Crossmatch 07/14/19 07/14/19 07/14/19 20:00 20:00 20:00 WBC RBC Hgb Hct MCV MCH MCHC RDW Plt Count MPV Absolute Neuts (auto) Total Counted Neutrophils % Neutrophils % (Manual) Band Neutrophils % Lymphocytes % Lymphocytes % (Manual) Monocytes % Monocytes % (Manual) Eosinophils % Eosinophils % (Manual) Basophils % Myelocytes % (Man) Nucleated RBC % Metamyelocytes Hypochromia Platelet Estimate Platelet Comment Anisocytosis Microcytosis PT with INR 35.40 H INR 2.97 H PTT (Actin FS) 36.3 Fibrinogen D-Dimer Anticoagulation Therapy Puncture Site ABG pH ABG pCO2 at Pt Temp ABG pO2 at Pt Temp ABG HCO3 ABG O2 Sat (Measured) ABG O2 Content ABG Base Excess Guille Test Carboxyhemoglobin Methemoglobin O2 Delivery Device Oxygen Flow Rate Vent Mode Vent Rate Mechanical Rate PEEP Pressure Support Vent Sodium Potassium Chloride Carbon Dioxide Anion Gap BUN Creatinine Est GFR (CKD-EPI)AfAm Est GFR (CKD-EPI)NonAf POC Glucometer Random Glucose Hemoglobin A1c % Lactic Acid Calcium Phosphorus Magnesium Total Bilirubin AST ALT Alkaline Phosphatase Ammonia Creatine Kinase Creatine Kinase Index CK-MB (CK-2) Troponin I Total Protein Albumin Lipase Urine Color [place] Urine Appearance Turbid Urine pH 5.0 Ur Specific Blanca 1.030 Urine Protein 2+ H Urine Glucose (UA) Negative Urine Ketones Negative Urine Blood Negative Urine Nitrite Positive H Urine Bilirubin 3+ H Urine Urobilinogen 1.0 Ur Leukocyte Esterase 2+ H Urine WBC (Auto) 37 Urine RBC (Auto) 14.8 Urine Casts (Auto) 215 U Pathogenic Cast Auto 2-4 U Epithel Cells (Auto) 18.2 Stool Occult Blood Salicylates Opiates Screen Methadone Screen Acetaminophen Barbiturate Screen Phencyclidine Screen Ur Amphetamines Screen MDMA (Ecstasy) Screen Benzodiazepines Screen Cocaine Screen U Marijuana (THC) Screen Alcohol, Quantitative Blood Type O POSITIVE Antibody Screen Negative Crossmatch See Detail 07/14/19 07/14/19 07/15/19 20:00 20:00 00:05 WBC RBC Hgb Hct MCV MCH MCHC RDW Plt Count MPV Absolute Neuts (auto) Total Counted Neutrophils % Neutrophils % (Manual) Band Neutrophils % Lymphocytes % Lymphocytes % (Manual) Monocytes % Monocytes % (Manual) Eosinophils % Eosinophils % (Manual) Basophils % Myelocytes % (Man) Nucleated RBC % Metamyelocytes Hypochromia Platelet Estimate Platelet Comment Anisocytosis Microcytosis PT with INR INR PTT (Actin FS) Fibrinogen D-Dimer Anticoagulation Therapy No Result Required. Puncture Site No Result Required. ABG pH 7.18 L* ABG pCO2 at Pt Temp 34.4 L ABG pO2 at Pt Temp 91.4 ABG HCO3 12.2 L ABG O2 Sat (Measured) 92.2 L ABG O2 Content No Result Required. ABG Base Excess -14.8 L Guille Test No Result Required. Carboxyhemoglobin < 0.5 Methemoglobin 1.1 O2 Delivery Device No Result Required. Oxygen Flow Rate No Result Required. Vent Mode No Result Required. Vent Rate No Result Required. Mechanical Rate No Result Required. PEEP Pressure Support Vent No Result Required. Sodium Potassium Chloride Carbon Dioxide Anion Gap BUN Creatinine Est GFR (CKD-EPI)AfAm Est GFR (CKD-EPI)NonAf POC Glucometer Random Glucose Hemoglobin A1c % Lactic Acid Calcium Phosphorus Magnesium Total Bilirubin AST ALT Alkaline Phosphatase Ammonia 73.00 H Creatine Kinase Creatine Kinase Index CK-MB (CK-2) Troponin I Total Protein Albumin Lipase Urine Color Urine Appearance Urine pH Ur Specific [place] Urine Protein Urine Glucose (UA) Urine Ketones Urine Blood Urine Nitrite Urine Bilirubin Urine Urobilinogen Ur Leukocyte Esterase Urine WBC (Auto) Urine RBC (Auto) Urine Casts (Auto) U Pathogenic Cast Auto U Epithel Cells (Auto) Stool Occult Blood Salicylates Opiates Screen Methadone Screen Acetaminophen Barbiturate Screen Phencyclidine Screen Ur Amphetamines Screen MDMA (Ecstasy) Screen Benzodiazepines Screen Cocaine Screen U Marijuana (THC) Screen Alcohol, Quantitative Blood Type O POSITIVE Antibody Screen Crossmatch 07/15/19 07/15/19 07/15/19 00:05 00:05 00:05 WBC 37.2 H* RBC 3.54 L Hgb 7.3 L Hct 25.1 L D MCV 71.0 L MCH 20.7 L MCHC 29.1 L RDW 17.8 H Plt Count 621 H D MPV 8.5 Absolute Neuts (auto) 32.8 H Total Counted 100 Neutrophils % 88.1 H Neutrophils % (Manual) 54.0 Band Neutrophils % 24.0 Lymphocytes % 5.6 L D Lymphocytes % (Manual) 5.0 L Monocytes % 3.7 L Monocytes % (Manual) 6 D Eosinophils % 2.0 Eosinophils % (Manual) 1.0 Basophils % 0.6 D Myelocytes % (Man) 2 Nucleated RBC % 0 Metamyelocytes 13 H D Hypochromia 2+ Platelet Estimate Increased Platelet Comment No clotting detected Anisocytosis 1+ Microcytosis PT with INR 35.80 H INR 3.00 H PTT (Actin FS) 37.0 H Fibrinogen D-Dimer Anticoagulation Therapy Puncture Site ABG pH ABG pCO2 at Pt Temp ABG pO2 at Pt Temp ABG HCO3 ABG O2 Sat (Measured) ABG O2 Content ABG Base Excess Guille Test Carboxyhemoglobin Methemoglobin O2 Delivery Device Oxygen Flow Rate Vent Mode Vent Rate Mechanical Rate PEEP Pressure Support Vent Sodium 133 L Potassium 4.6 Chloride 96 L Carbon Dioxide 16 L Anion Gap 21 H BUN 72.7 H Creatinine 3.1 H Est GFR (CKD-EPI)AfAm 16.72 Est GFR (CKD-EPI)NonAf 14.42 POC Glucometer Random Glucose 117 H Hemoglobin A1c % Lactic Acid Calcium 6.6 L* Phosphorus Magnesium Total Bilirubin 1.7 H AST 139 H ALT 35 Alkaline Phosphatase 143 H Ammonia Creatine Kinase Creatine Kinase Index CK-MB (CK-2) Troponin I Total Protein 4.3 L Albumin 1.3 L Lipase Urine Color Urine Appearance Urine pH Ur Specific [place] Urine Protein Urine Glucose (UA) Urine Ketones Urine Blood Urine Nitrite Urine Bilirubin Urine Urobilinogen Ur Leukocyte Esterase Urine WBC (Auto) Urine RBC (Auto) Urine Casts (Auto) U Pathogenic Cast Auto U Epithel Cells (Auto) Stool Occult Blood Salicylates Opiates Screen Methadone Screen Acetaminophen Barbiturate Screen Phencyclidine Screen Ur Amphetamines Screen MDMA (Ecstasy) Screen Benzodiazepines Screen Cocaine Screen U Marijuana (THC) Screen Alcohol, Quantitative Blood Type Antibody Screen Crossmatch 07/15/19 07/15/19 07/15/19 00:05 00:05 00:30 WBC RBC Hgb Hct MCV MCH MCHC RDW Plt Count MPV Absolute Neuts (auto) Total Counted Neutrophils % Neutrophils % (Manual) Band Neutrophils % Lymphocytes % Lymphocytes % (Manual) Monocytes % Monocytes % (Manual) Eosinophils % Eosinophils % (Manual) Basophils % Myelocytes % (Man) Nucleated RBC % Metamyelocytes Hypochromia Platelet Estimate Platelet Comment Anisocytosis Microcytosis PT with INR INR PTT (Actin FS) Fibrinogen > 500.0 H D-Dimer 3763 H Anticoagulation Therapy No Result Required. Puncture Site Right brachial ABG pH 7.07 L* ABG pCO2 at Pt Temp 42.1 ABG pO2 at Pt Temp 87.5 ABG HCO3 11.6 L ABG O2 Sat (Measured) 89.3 L ABG O2 Content 88.4 ABG Base Excess -17.0 L Guille Test No Result Required. Carboxyhemoglobin Methemoglobin O2 Delivery Device Mech vent Oxygen Flow Rate 100 Vent Mode A/c Vent Rate 14 Mechanical Rate No Result Required. PEEP 5.0 Pressure Support Vent 450 Sodium Potassium Chloride Carbon Dioxide Anion Gap BUN Creatinine Est GFR (CKD-EPI)AfAm Est GFR (CKD-EPI)NonAf POC Glucometer Random Glucose Hemoglobin A1c % Lactic Acid 8.9 H* Calcium Phosphorus Magnesium Total Bilirubin AST ALT Alkaline Phosphatase Ammonia Creatine Kinase Creatine Kinase Index CK-MB (CK-2) Troponin I Total Protein Albumin Lipase Urine Color Urine Appearance Urine pH Ur Specific [place] Urine Protein Urine Glucose (UA) Urine Ketones Urine Blood Urine Nitrite Urine Bilirubin Urine Urobilinogen Ur Leukocyte Esterase Urine WBC (Auto) Urine RBC (Auto) Urine Casts (Auto) U Pathogenic Cast Auto U Epithel Cells (Auto) Stool Occult Blood Salicylates Opiates Screen Methadone Screen Acetaminophen Barbiturate Screen Phencyclidine Screen Ur Amphetamines Screen MDMA (Ecstasy) Screen Benzodiazepines Screen Cocaine Screen U Marijuana (THC) Screen Alcohol, Quantitative Blood Type Antibody Screen Crossmatch 07/15/19 07/15/19 07/15/19 00:30 02:15 04:40 WBC RBC Hgb Hct MCV MCH MCHC RDW Plt Count MPV Absolute Neuts (auto) Total Counted Neutrophils % Neutrophils % (Manual) Band Neutrophils % Lymphocytes % Lymphocytes % (Manual) Monocytes % Monocytes % (Manual) Eosinophils % Eosinophils % (Manual) Basophils % Myelocytes % (Man) Nucleated RBC % Metamyelocytes Hypochromia Platelet Estimate Platelet Comment Anisocytosis Microcytosis PT with INR INR PTT (Actin FS) Fibrinogen D-Dimer Anticoagulation Therapy Puncture Site ABG pH ABG pCO2 at Pt Temp ABG pO2 at Pt Temp ABG HCO3 ABG O2 Sat (Measured) ABG O2 Content ABG Base Excess Guille Test Carboxyhemoglobin Methemoglobin O2 Delivery Device Oxygen Flow Rate Vent Mode Vent Rate Mechanical Rate PEEP Pressure Support Vent Sodium Potassium Chloride Carbon Dioxide Anion Gap BUN Creatinine Est GFR (CKD-EPI)AfAm Est GFR (CKD-EPI)NonAf POC Glucometer Random Glucose Hemoglobin A1c % 6.5 H Lactic Acid Calcium Phosphorus Magnesium Total Bilirubin AST ALT Alkaline Phosphatase Ammonia 467.90 H Creatine Kinase Creatine Kinase Index CK-MB (CK-2) Troponin I Total Protein Albumin Lipase Urine Color Urine Appearance Urine pH Ur Specific [place] Urine Protein Urine Glucose (UA) Urine Ketones Urine Blood Urine Nitrite Urine Bilirubin Urine Urobilinogen Ur Leukocyte Esterase Urine WBC (Auto) Urine RBC (Auto) Urine Casts (Auto) U Pathogenic Cast Auto U Epithel Cells (Auto) Stool Occult Blood Salicylates 4.8 Opiates Screen Methadone Screen Acetaminophen Barbiturate Screen Phencyclidine Screen Ur Amphetamines Screen MDMA (Ecstasy) Screen Benzodiazepines Screen Cocaine Screen U Marijuana (THC) Screen Alcohol, Quantitative Blood Type Antibody Screen Crossmatch 07/15/19 07/15/19 07/15/19 04:40 04:40 04:40 WBC 33.6 H* RBC 3.70 Hgb 7.8 L Hct 25.9 L MCV 69.8 L MCH 21.2 L MCHC 30.4 L RDW 18.1 H Plt Count 598 H MPV 8.4 Absolute Neuts (auto) 29.7 H Total Counted 100 Neutrophils % 88.2 H Neutrophils % (Manual) 45.0 Band Neutrophils % 26.0 H Lymphocytes % 6.9 L D Lymphocytes % (Manual) 9.0 Monocytes % 2.5 L Monocytes % (Manual) 5 Eosinophils % 2.1 Eosinophils % (Manual) 2.0 Basophils % 0.3 Myelocytes % (Man) 4 H Nucleated RBC % 1 H Metamyelocytes 9 H Hypochromia 2+ Platelet Estimate Increased Platelet Comment No clotting detected Anisocytosis Microcytosis 1+ PT with INR INR PTT (Actin FS) Fibrinogen D-Dimer Anticoagulation Therapy Puncture Site ABG pH ABG pCO2 at Pt Temp ABG pO2 at Pt Temp ABG HCO3 ABG O2 Sat (Measured) ABG O2 Content ABG Base Excess Guille Test Carboxyhemoglobin Methemoglobin O2 Delivery Device Oxygen Flow Rate Vent Mode Vent Rate Mechanical Rate PEEP Pressure Support Vent Sodium 130 L Potassium 4.6 Chloride 95 L Carbon Dioxide 15 L Anion Gap 20 H BUN 73.1 H Creatinine 3.0 H Est GFR (CKD-EPI)AfAm 17.39 Est GFR (CKD-EPI)NonAf 15.01 POC Glucometer Random Glucose 132 H Hemoglobin A1c % Lactic Acid Calcium 6.4 L* Phosphorus 8.3 H Magnesium 2.7 H Total Bilirubin 2.2 H AST 285 H ALT 59 Alkaline Phosphatase 145 H Ammonia Creatine Kinase 3310 H Creatine Kinase Index 3.4 CK-MB (CK-2) 114.8 H Troponin I 0.26 H Total Protein 4.5 L Albumin 1.4 L Lipase 53 L Urine Color Urine Appearance Urine pH Ur Specific [place] Urine Protein Urine Glucose (UA) Urine Ketones Urine Blood Urine Nitrite Urine Bilirubin Urine Urobilinogen Ur Leukocyte Esterase Urine WBC (Auto) Urine RBC (Auto) Urine Casts (Auto) U Pathogenic Cast Auto U Epithel Cells (Auto) Stool Occult Blood Salicylates Opiates Screen Methadone Screen Acetaminophen Barbiturate Screen Phencyclidine Screen Ur Amphetamines Screen MDMA (Ecstasy) Screen Benzodiazepines Screen Cocaine Screen U Marijuana (THC) Screen Alcohol, Quantitative Blood Type Antibody Screen Crossmatch 07/15/19 07/15/19 07/15/19 04:40 06:45 08:45 WBC RBC Hgb Hct MCV MCH MCHC RDW Plt Count MPV Absolute Neuts (auto) Total Counted Neutrophils % Neutrophils % (Manual) Band Neutrophils % Lymphocytes % Lymphocytes % (Manual) Monocytes % Monocytes % (Manual) Eosinophils % Eosinophils % (Manual) Basophils % Myelocytes % (Man) Nucleated RBC % Metamyelocytes Hypochromia Platelet Estimate Platelet Comment Anisocytosis Microcytosis PT with INR INR PTT (Actin FS) Fibrinogen D-Dimer Anticoagulation Therapy No Result Required. Puncture Site Arterial line ABG pH 7.22 L ABG pCO2 at Pt Temp 35.9 ABG pO2 at Pt Temp 63.2 L ABG HCO3 14.0 L ABG O2 Sat (Measured) 83.9 L ABG O2 Content 8.9 ABG Base Excess -12.4 L Guille Test No Result Required. Carboxyhemoglobin Methemoglobin O2 Delivery Device Mech vent Oxygen Flow Rate 100 Vent Mode A/c Vent Rate 14 Mechanical Rate No Result Required. PEEP 5.0 Pressure Support Vent 450 Sodium Potassium Chloride Carbon Dioxide Anion Gap BUN Creatinine Est GFR (CKD-EPI)AfAm Est GFR (CKD-EPI)NonAf POC Glucometer Random Glucose Hemoglobin A1c % Lactic Acid 5.7 H* 7.8 H* Calcium Phosphorus Magnesium Total Bilirubin AST ALT Alkaline Phosphatase Ammonia Creatine Kinase Creatine Kinase Index CK-MB (CK-2) Troponin I Total Protein Albumin Lipase Urine Color Urine Appearance Urine pH Ur Specific [place] Urine Protein Urine Glucose (UA) Urine Ketones Urine Blood Urine Nitrite Urine Bilirubin Urine Urobilinogen Ur Leukocyte Esterase Urine WBC (Auto) Urine RBC (Auto) Urine Casts (Auto) U Pathogenic Cast Auto U Epithel Cells (Auto) Stool Occult Blood Salicylates Opiates Screen Methadone Screen Acetaminophen Barbiturate Screen Phencyclidine Screen Ur Amphetamines Screen MDMA (Ecstasy) Screen Benzodiazepines Screen Cocaine Screen U Marijuana (THC) Screen Alcohol, Quantitative Blood Type Antibody Screen Crossmatch 07/15/19 07/15/19 07/15/19 09:30 11:06 12:30 WBC RBC Hgb Hct MCV MCH MCHC RDW Plt Count MPV Absolute Neuts (auto) Total Counted Neutrophils % Neutrophils % (Manual) Band Neutrophils % Lymphocytes % Lymphocytes % (Manual) Monocytes % Monocytes % (Manual) Eosinophils % Eosinophils % (Manual) Basophils % Myelocytes % (Man) Nucleated RBC % Metamyelocytes Hypochromia Platelet Estimate Platelet Comment Anisocytosis Microcytosis PT with INR INR PTT (Actin FS) Fibrinogen D-Dimer Anticoagulation Therapy Puncture Site ABG pH ABG pCO2 at Pt Temp ABG pO2 at Pt Temp ABG HCO3 ABG O2 Sat (Measured) ABG O2 Content ABG Base Excess Guille Test Carboxyhemoglobin Methemoglobin O2 Delivery Device Oxygen Flow Rate Vent Mode Vent Rate Mechanical Rate PEEP Pressure Support Vent Sodium Potassium Chloride Carbon Dioxide Anion Gap BUN Creatinine Est GFR (CKD-EPI)AfAm Est GFR (CKD-EPI)NonAf POC Glucometer Random Glucose Hemoglobin A1c % Lactic Acid 5.3 H* Calcium Phosphorus Magnesium Total Bilirubin AST ALT Alkaline Phosphatase Ammonia Creatine Kinase Creatine Kinase Index CK-MB (CK-2) Troponin I 0.39 H Total Protein Albumin Lipase Urine Color Urine Appearance Urine pH Ur Specific [place] Urine Protein Urine Glucose (UA) Urine Ketones Urine Blood Urine Nitrite Urine Bilirubin Urine Urobilinogen Ur Leukocyte Esterase Urine WBC (Auto) Urine RBC (Auto) Urine Casts (Auto) U Pathogenic Cast Auto U Epithel Cells (Auto) Stool Occult Blood Positive Salicylates Opiates Screen Methadone Screen Acetaminophen Barbiturate Screen Phencyclidine Screen Ur Amphetamines Screen MDMA (Ecstasy) Screen Benzodiazepines Screen Cocaine Screen U Marijuana (THC) Screen Alcohol, Quantitative Blood Type Antibody Screen Crossmatch 07/15/19 13:30 WBC RBC Hgb Hct MCV MCH MCHC RDW Plt Count MPV Absolute Neuts (auto) Total Counted Neutrophils % Neutrophils % (Manual) Band Neutrophils % Lymphocytes % Lymphocytes % (Manual) Monocytes % Monocytes % (Manual) Eosinophils % Eosinophils % (Manual) Basophils % Myelocytes % (Man) Nucleated RBC % Metamyelocytes Hypochromia Platelet Estimate Platelet Comment Anisocytosis Microcytosis PT with INR INR PTT (Actin FS) Fibrinogen D-Dimer Anticoagulation Therapy No Result Required. Puncture Site Arterial line ABG pH 7.18 L* ABG pCO2 at Pt Temp 38.1 ABG pO2 at Pt Temp 84.1 ABG HCO3 13.5 L ABG O2 Sat (Measured) 91.5 L ABG O2 Content No Result Required. ABG Base Excess -13.4 L Guille Test Positive Carboxyhemoglobin Methemoglobin O2 Delivery Device No Result Required. Oxygen Flow Rate 100 Vent Mode A/c400/24 Vent Rate No Result Required. Mechanical Rate No Result Required. PEEP 10.0 Pressure Support Vent No Result Required. Sodium Potassium Chloride Carbon Dioxide Anion Gap BUN Creatinine Est GFR (CKD-EPI)AfAm Est GFR (CKD-EPI)NonAf POC Glucometer Random Glucose Hemoglobin A1c % Lactic Acid Calcium Phosphorus Magnesium Total Bilirubin AST ALT Alkaline Phosphatase Ammonia Creatine Kinase Creatine Kinase Index CK-MB (CK-2) Troponin I Total Protein Albumin Lipase Urine Color Urine Appearance Urine pH Ur Specific [place] Urine Protein Urine Glucose (UA) Urine Ketones Urine Blood Urine Nitrite Urine Bilirubin Urine Urobilinogen Ur Leukocyte Esterase Urine WBC (Auto) Urine RBC (Auto) Urine Casts (Auto) U Pathogenic Cast Auto U Epithel Cells (Auto) Stool Occult Blood Salicylates Opiates Screen Methadone Screen Acetaminophen Barbiturate Screen Phencyclidine Screen Ur Amphetamines Screen MDMA (Ecstasy) Screen Benzodiazepines Screen Cocaine Screen U Marijuana (THC) Screen Alcohol, Quantitative Blood Type Antibody Screen Crossmatch Active Medications Generic Name Dose Route Start Last Admin Trade Name Mariana PRN Reason Stop Dose Admin Acetaminophen 1,000 mg 07/15/19 13:10 07/15/19 13:56 Ofirmev Injection - IVPB 1,000 mg Q6H PRN Administration FEVER Chlorhexidine Gluconate 1 applic 07/15/19 22:00 Hibiclens For Decolonization - TP HS BERTRAM Hydrocortisone Sodium Succinate 100 mg 07/15/19 11:45 07/15/19 12:26 Solu-Cortef - IVPB 100 mg Q8H-IV BERTRAM Administration Metronidazole 500 mg in 100 mls @ 100 mls/hr 07/15/19 02:00 07/15/19 09:32 Flagyl 500mg Premixed Ivpb - IVPB 100 mls/hr Q8H-IV BERTRAM Administration Norepinephrine Bitartrate 8, 500 mls @ 18.75 mls/hr 07/15/19 02:15 07/15/19 12:36 000 mcg/ Dextrose IV 20 mcg/min TITR BERTRAM 75 mls/hr Titration Protocol 5 MCG/MIN Fentanyl 500 mcg/ Dextrose 100 mls @ 1 mls/hr 07/15/19 04:30 07/15/19 10:51 IVPB 50 mcg/hr TITR BERTRAM 10 mls/hr Titration Protocol 5 MCG/HR Vasopressin 50 units/ Sodium 100 mls @ 24 mls/hr 07/15/19 04:30 07/15/19 14: 10 Chloride IVPB 0.1 units/min TITR BERTRAM 12 mls/hr Titration Protocol 0.2 UNITS/MIN Meropenem 1 gm/ Dextrose 100 mls @ 200 mls/hr 07/15/19 09:15 07/15/19 10:48 IVPB 200 mls/hr BID BERTRAM Administration As Directed Sodium Bicarbonate 150 meq/ 1,150 mls @ 100 mls/hr 07/15/19 10:00 07/15/19 10 :49 Dextrose IV 100 mls/hr Q11H BERTRAM Administration Propofol 1,000,000 mcg in 100 mls @ 2.368 mls/hr 07/15/19 11:45 07/15/19 14: 00 Diprivan - IVPB 30 mcg/kg/min TITR BERTRAM 14.207 mls/hr Titration Protocol 5 MCG/KG/MIN Sodium Chloride 500 mls @ 500 mls/hr 07/15/19 14:05 Normal Saline - IV 07/15/19 15:04 ASDIR STA Mupirocin 1 applic 07/15/19 10:00 07/15/19 10:48 Bactroban Ointment (For Decolonization) - NS 07/20/19 09:59 1 applic BID BERTRAM Administration Pantoprazole Sodium 40 mg 07/15/19 22:00 Protonix Iv IVPUSH BID BERTRAM ASSESSMENT/PLAN: 69 year old female with no pcp, presented to ED with altered mental status and coffee ground emesis was found to be septic and admitted to ICU for close monitoring # ID -> Septic shock 2/2 SBO perforation/aspiration PNA/Legionella wbc 48.2 , LA 10 initially and will continue to trend after hydration. Lactate most recent is 5.3, 33.6 wbc smith cx , blood , Urine and sputum, blood cx growing gram positive cocci so will add 1 dose of vanco renally dosed ofr mrsa coverage, ID made aware. D/c cefepime and zosyn and azithro, pt is pedro allergic, will continue vanc, meropenem, and flagyl. follow official read for CT head , chest abdomen , pelvic Aspiration precautions, head of bed elevation , OGT surgery was consulted Dr Paredes and did not recommended intervention till pt is hemodynamicaly stable. - UA legionella sent given triad of abdominal pain, hyponatremia, and fever with leukocytosis. Neuro -> Acutemetabolic encephalopathy Intubated, sedated on max dose of prop, fentanyl confused due to sepsis CT head negative # cardio -> AFIB initially/Demand ischemia induced troponinemia - troponinemia is being continued to trend and has gone up most likely due to demand ischemia from sepsis. Rpt EKG showing normal sinus rythym and normal rate , prolonged QT however (>500) - AFIB py EMS S/p Cardizem 25 per ED and pt went in oralia cardia to 30 - continue tele monitoring for any signs of AF. Pulmonary-> /Acute hypoxemic Respiratory failure - Aspiration PNA bibasilar and right middle lobe , cont abx - on levo 30, vaso 6units maintaining adequate Map's. sedation propfol @ 30 mcg/min, 100 of fentanyl IV fluids bolus and maintenance maintain BP MAP> 65 - intubated: vent settings: TV 400 RR 24 FiO2 100 PEEP 10 - will have low threshold to add a parlytic agent if pt not able to maintain oxygenation and pt RR is asynchronous with the vent. - Chest CT showing pneumoperitoneum suspicious for ruptured viscus. The site of perforation is uncertain but may be within the pelvis where a large complex mass involves the sigmoid colon and possibly small bowel loops. Extensive pulmonary consolidation involving the right middle and lower lobes, as well as the left lower lobe. This is consistent with acute pneumonia. Moderate ascites. Moderate retroperitoneal lymphadenopathy. GI -> coffee ground emesis r/o Upper GI bleed/acute vs chronic liver dx - Ascitis - liver cirrhosis ?? - gallbladder sludge and presented with ? coffee ground emesis that has now resolved - 2 large IV bores to maintain adequate fluid resuscitation Monitor H/H Q 6 hr - INR 3, unsure how long pt has had this liver disease as pt failed to seek medical attention in long time. - Meld score of 34 and Child hudson class C showing significantly decreased mortality for this patient if indeed this is not just an acute rxn from the sepsis. - normal transfusion threshold below 7 unless is actively bleeding PPI 40 IV BID per GI recs (Dr. Rashid). - avoiding NSAIDS - send C diff was on Motrin OTC for pain CT abdomen with SBO and perforation and mild ascitis, surgery does not want to intervene at this time given its futility, believed to be due to possible ulcer but unsure of cause at this time. NPO , OGT set to suction Nephrology -> JEFF 2/2 Rhabdomyolysis/High AG met acidosis/hypovolemic hyponatremia - JEFF BUN /Cr 72/3.6 unkown base line, likely due to dehydration, urine lytes, cr, urine myoglobin pending. - Renal US pending - ABG showing metabolic acidosis, AG is 20 so its high AG met acidosis likely 2/ 2 lactic acidosis from septic shock. - Bicarb gtt initiated and 2 boluses of bicarb have been given due to repeat ABG showing decrease in Bicarb despite the gtt, will continue to monitor with rpt abg's and will monitor pt's Ca while on drip. - Vent settings adjusted to help compensate respiratory valadez for the met acidosis. - UTI UA positive LE + Nitrit + wbc 37 cont abx - High anion gap metabolic acidosis 2/2 to lactic acidosis from sepsis - ABG pH 7.18 on rpt, hgave 2 boluses of HCO3. - Hypovolemic hyponatremic NA 128 repeat after iv hydration 131 , cont IV fluids , urine osmo, blood osmolality #Heme-> microcytic hypochromic anemia due to malnourished and blood loss - 1prbc given and 2 ffp and 1 vitamin K given - monitor H/H Q 6 hr # JOSEI * ORIGINALLY placed on 250cc/hr NS but was d/c and will be giving 500cc boluses of NS to maintain CVP >8. Pt also has a rt A line. * Monitor lytes and replete as seen * NPO Prophylaxis: * dVTs proph: scds , no chemical prophylaxis in term of bleeding * GI proph : PPI Drip Dispo: Patient is a full code at this time. D/w son who is the next of kin and pt's only sibling (her sister) in the unit and they would get back to me once they come up to with a family aggrement on goals of care. The son can be reached at his house number [phone] or cell phone [phone]. Per pt's sister and son: pt is only taking combigan eye drops for glaucoma as well as motrin off and on, with other over the counter remedies for diarrhea. We will continue to follow the patient. Thank you for this consultative opportunity.
[2019-07-15] MEDS ORDERED: VANCOMYCIN 1 GM PREMIX - 1 GM/200 ML BAG IVPB ONE (15:05)
[2019-07-15] MEDS ORDERED: VANCOMYCIN 1 GRAM (PRE-DOCKED) 1,000 MG/250 ML BAG IVPB ONE (15:08)
--- NOTE | 2019-07-15 15:29 | PN ---
Progress Note (short form) - Note Progress Note: Last ABG reviewed. As pt with improved PO2 will continue same settings. If pt is unable to oxygenate adequately and tachypneic with vent asynchrony, will consider paralytic (vecoronium gtt). For now, will c/w ARDS protocol for vent mgmt and repeat ABG in PM to check oxygenation. Gave additional dose of bicarb 50meq. Will c/w fluid boluses per CVP readings; goal 8-12. Vanco 1x dose added based on blood cx. ABG 07/15/19 13:30 ABG pH 7.18 L* ABG pCO2 at Pt Temp 38.1 ABG pO2 at Pt Temp 84.1 ABG HCO3 13.5 L ABG O2 Sat (Measured) 91.5 L Batsheva Reilly MD PGY-3 ICU team
[2019-07-15 17:37] LABS: ALBUMIN 1.2 g/dl (3.4-5.0); BILIRUBIN,TOTAL 2.3 mg/dL (0.2-1); BLOOD UREA NITROGEN 77.7 mg/dL (7-18); CREATININE 2.6 mg/dL (0.55-1.3); POTASSIUM 4.5 mmol/L (3.5-5.1)
[2019-07-15 17:44] LABS: CALCIUM 5.4 mg/dL (8.5-10.1)
[2019-07-15] MEDS ORDERED: CALCIUM GLUCONATE 10% - 1,000 MG/10 ML VIAL IVPUSH ONE (18:51)
--- NOTE | 2019-07-15 19:13 | PN ---
Teaching Attending Note Name of Resident: Cheikh Eagle ATTENDING PHYSICIAN STATEMENT I saw and evaluated the patient. I reviewed the resident's note and discussed the case with the resident. I agree with the resident's findings and plan as documented with exceptions below. SUBJECTIVE: Patient seen and examined. intubated sedated OBJECTIVE: Vital Signs Period Temp Pulse Resp BP Sys/James Pulse Ox Last 24 Hr 96 F-103.7 F 61-140 23-38 69-134/39-99 48-100 Intake & Output 07/12/19 07/13/19 07/14/19 07/15/19 23:59 23:59 23:59 23:59 Intake Total 9010 Output Total 0 1100 Balance 0 7910 Weight 180 lb 174 lb general: intubated, sedated, breathing over the vent Chest: poor rales, coarse rhonchi Abdomen: distended, soft, hypoactive bowel sounds Extremiteis: pos edema, mottled CVS: S1S2 regular, tachycardic Active Medications Acetaminophen (Ofirmev Injection -) 1,000 mg IVPB Q6H PRN PRN Reason: FEVER Last Admin: 07/15/19 13:56 Dose: 1,000 mg Chlorhexidine Gluconate (Hibiclens For Decolonization -) 1 applic TP HS BERTRAM Hydrocortisone Sodium Succinate (Solu-Cortef -) 100 mg IVPB Q8H-IV BERTRAM Last Admin: 07/15/19 18:28 Dose: 100 mg Metronidazole (Flagyl 500mg Premixed Ivpb -) 500 mg in 100 mls @ 100 mls/hr IVPB Q8H-IV BERTRAM Last Admin: 07/15/19 17:25 Dose: 100 mls/hr Norepinephrine Bitartrate 8, (000 mcg/ Dextrose) 500 mls @ 18.75 mls/hr IV TITR BERTRAM; Protocol Last Titration: 07/15/19 14:30 Dose: 30 mcg/min, 112.5 mls/hr Fentanyl 500 mcg/ Dextrose 100 mls @ 1 mls/hr IVPB TITR BERTRAM; Protocol Last Titration: 07/15/19 10:51 Dose: 50 mcg/hr, 10 mls/hr Vasopressin 50 units/ Sodium (Chloride) 100 mls @ 24 mls/hr IVPB TITR BERTRAM; Protocol Last Titration: 07/15/19 14:10 Dose: 0.1 units/min, 12 mls/hr Meropenem 1 gm/ Dextrose 100 mls @ 200 mls/hr IVPB BID BERTRAM Last Admin: 07/15/19 10:48 Dose: 200 mls/hr Sodium Bicarbonate 150 meq/ (Dextrose) 1,150 mls @ 100 mls/hr IV Q11H BERTRAM Last Admin: 07/15/19 10:49 Dose: 100 mls/hr Propofol (Diprivan -) 1,000,000 mcg in 100 mls @ 2.368 mls/hr IVPB TITR BERTRAM; Protocol Last Titration: 07/15/19 14:00 Dose: 30 mcg/kg/min, 14.207 mls/hr Mupirocin (Bactroban Ointment (For Decolonization) -) 1 applic NS BID [facility] Stop: 07/20/19 09:59 Last Admin: 07/15/19 10:48 Dose: 1 applic Pantoprazole Sodium (Protonix Iv) 40 mg IVPUSH BID [facility] Laboratory Results - last 24 hr 07/14/19 07/14/19 07/14/19 19:56 20:00 20:00 WBC RBC Hgb Hct MCV MCH MCHC RDW Plt Count MPV Absolute Neuts (auto) Total Counted Neutrophils % Neutrophils % (Manual) Band Neutrophils % Lymphocytes % Lymphocytes % (Manual) Monocytes % Monocytes % (Manual) Eosinophils % Eosinophils % (Manual) Basophils % Myelocytes % (Man) Nucleated RBC % Metamyelocytes Hypochromia Platelet Estimate Platelet Comment Anisocytosis Microcytosis PT with INR INR PTT (Actin FS) Fibrinogen D-Dimer Anticoagulation Therapy Puncture Site ABG pH ABG pCO2 at Pt Temp ABG pO2 at Pt Temp ABG HCO3 ABG O2 Sat (Measured) ABG O2 Content ABG Base Excess Guille Test Carboxyhemoglobin Methemoglobin O2 Delivery Device Oxygen Flow Rate Vent Mode Vent Rate Mechanical Rate PEEP Pressure Support Vent Sodium Potassium Chloride Carbon Dioxide Anion Gap BUN Creatinine Est GFR (CKD-EPI)AfAm Est GFR (CKD-EPI)NonAf POC Glucometer 136 Random Glucose Hemoglobin A1c % Lactic Acid Calcium Phosphorus Magnesium Total Bilirubin AST ALT Alkaline Phosphatase Ammonia Creatine Kinase Creatine Kinase Index CK-MB (CK-2) Troponin I 0.14 H Total Protein Albumin Lipase Urine Color Urine Appearance Urine pH Ur Specific [place] Urine Protein Urine Glucose (UA) Urine Ketones Urine Blood Urine Nitrite Urine Bilirubin Urine Urobilinogen Ur Leukocyte Esterase Urine WBC (Auto) Urine RBC (Auto) Urine Casts (Auto) U Pathogenic Cast Auto U Epithel Cells (Auto) Urine Osmolality Ur Random Sodium Stool Occult Blood Salicylates 6.0 Opiates Screen Methadone Screen Acetaminophen Barbiturate Screen Phencyclidine Screen Ur Amphetamines Screen MDMA (Ecstasy) Screen Benzodiazepines Screen Cocaine Screen U Marijuana (THC) Screen Alcohol, Quantitative < 3.0 Blood Type Antibody Screen Crossmatch 07/14/19 07/14/19 07/14/19 20:00 20:00 20:00 WBC 48.2 H* RBC 4.35 Hgb 9.1 L Hct 30.3 L D MCV 69.6 L MCH 20.8 L D MCHC 29.9 L RDW 18.0 H Plt Count 787 H D MPV 8.8 Absolute Neuts (auto) 43.0 H Total Counted 100 Neutrophils % 89.3 H D Neutrophils % (Manual) 64.0 Band Neutrophils % 23.0 Lymphocytes % 4.4 L D Lymphocytes % (Manual) 6.0 L Monocytes % 4.4 Monocytes % (Manual) 3 L Eosinophils % 1.8 Eosinophils % (Manual) Basophils % 0.1 Myelocytes % (Man) 2 Nucleated RBC % 0 Metamyelocytes 2 Hypochromia Platelet Estimate Platelet Comment Anisocytosis Microcytosis PT with INR INR PTT (Actin FS) Fibrinogen D-Dimer Anticoagulation Therapy Puncture Site ABG pH ABG pCO2 at Pt Temp ABG pO2 at Pt Temp ABG HCO3 ABG O2 Sat (Measured) ABG O2 Content ABG Base Excess Guille Test Carboxyhemoglobin Methemoglobin O2 Delivery Device Oxygen Flow Rate Vent Mode Vent Rate Mechanical Rate PEEP Pressure Support Vent Sodium 128 L Potassium 4.2 Chloride 88 L Carbon Dioxide 14 L Anion Gap 25 H BUN 72.2 H Creatinine 3.6 H Est GFR (CKD-EPI)AfAm 13.95 Est GFR (CKD-EPI)NonAf 12.04 POC Glucometer Random Glucose 155 H Hemoglobin A1c % Lactic Acid Calcium 8.1 L Phosphorus Magnesium Total Bilirubin 2.2 H AST 87 H ALT 32 Alkaline Phosphatase 128 H Ammonia Creatine Kinase 1571 H Creatine Kinase Index 2.4 CK-MB (CK-2) 39.0 H Troponin I 0.14 H Total Protein 5.6 L Albumin 1.8 L Lipase Urine Color Urine Appearance Urine pH Ur Specific [place] Urine Protein Urine Glucose (UA) Urine Ketones Urine Blood Urine Nitrite Urine Bilirubin Urine Urobilinogen Ur Leukocyte Esterase Urine WBC (Auto) Urine RBC (Auto) Urine Casts (Auto) U Pathogenic Cast Auto U Epithel Cells (Auto) Urine Osmolality Ur Random Sodium Stool Occult Blood Salicylates Opiates Screen Methadone Screen Acetaminophen <2.0 Barbiturate Screen Phencyclidine Screen Ur Amphetamines Screen MDMA (Ecstasy) Screen Benzodiazepines Screen Cocaine Screen U Marijuana (THC) Screen Alcohol, Quantitative Blood Type Antibody Screen Crossmatch 07/14/19 07/14/19 07/14/19 20:00 20:00 20:00 WBC RBC Hgb Hct MCV MCH MCHC RDW Plt Count MPV Absolute Neuts (auto) Total Counted Neutrophils % Neutrophils % (Manual) Band Neutrophils % Lymphocytes % Lymphocytes % (Manual) Monocytes % Monocytes % (Manual) Eosinophils % Eosinophils % (Manual) Basophils % Myelocytes % (Man) Nucleated RBC % Metamyelocytes Hypochromia Platelet Estimate Platelet Comment Anisocytosis Microcytosis PT with INR INR PTT (Actin FS) Fibrinogen D-Dimer Anticoagulation Therapy Puncture Site ABG pH ABG pCO2 at Pt Temp ABG pO2 at Pt Temp ABG HCO3 ABG O2 Sat (Measured) ABG O2 Content ABG Base Excess Guille Test Carboxyhemoglobin Methemoglobin O2 Delivery Device Oxygen Flow Rate Vent Mode Vent Rate Mechanical Rate PEEP Pressure Support Vent Sodium Potassium Chloride Carbon Dioxide Anion Gap BUN Creatinine Est GFR (CKD-EPI)AfAm Est GFR (CKD-EPI)NonAf POC Glucometer Random Glucose Hemoglobin A1c % Lactic Acid 10.1 H* Calcium Phosphorus Magnesium 3.4 H Total Bilirubin AST ALT Alkaline Phosphatase Ammonia Creatine Kinase Creatine Kinase Index CK-MB (CK-2) Troponin I Total Protein Albumin Lipase Urine Color Urine Appearance Urine pH Ur Specific [place]yman Urine Protein Urine Glucose (UA) Urine Ketones Urine Blood Urine Nitrite Urine Bilirubin Urine Urobilinogen Ur Leukocyte Esterase Urine WBC (Auto) Urine RBC (Auto) Urine Casts (Auto) U Pathogenic Cast Auto U Epithel Cells (Auto) Urine Osmolality Ur Random Sodium Stool Occult Blood Salicylates Opiates Screen Negative Methadone Screen Negative Acetaminophen Barbiturate Screen Negative Phencyclidine Screen Negative Ur Amphetamines Screen Negative MDMA (Ecstasy) Screen Negative Benzodiazepines Screen Negative Cocaine Screen Negative U Marijuana (THC) Screen Negative Alcohol, Quantitative Blood Type Antibody Screen Crossmatch 07/14/19 07/14/19 07/14/19 20:00 20:00 20:00 WBC RBC Hgb Hct MCV MCH MCHC RDW Plt Count MPV Absolute Neuts (auto) Total Counted Neutrophils % Neutrophils % (Manual) Band Neutrophils % Lymphocytes % Lymphocytes % (Manual) Monocytes % Monocytes % (Manual) Eosinophils % Eosinophils % (Manual) Basophils % Myelocytes % (Man) Nucleated RBC % Metamyelocytes Hypochromia Platelet Estimate Platelet Comment Anisocytosis Microcytosis PT with INR 35.40 H INR 2.97 H PTT (Actin FS) 36.3 Fibrinogen D-Dimer Anticoagulation Therapy Puncture Site ABG pH ABG pCO2 at Pt Temp ABG pO2 at Pt Temp ABG HCO3 ABG O2 Sat (Measured) ABG O2 Content ABG Base Excess Guille Test Carboxyhemoglobin Methemoglobin O2 Delivery Device Oxygen Flow Rate Vent Mode Vent Rate Mechanical Rate PEEP Pressure Support Vent Sodium Potassium Chloride Carbon Dioxide Anion Gap BUN Creatinine Est GFR (CKD-EPI)AfAm Est GFR (CKD-EPI)NonAf POC Glucometer Random Glucose Hemoglobin A1c % Lactic Acid Calcium Phosphorus Magnesium Total Bilirubin AST ALT Alkaline Phosphatase Ammonia Creatine Kinase Creatine Kinase Index CK-MB (CK-2) Troponin I Total Protein Albumin Lipase Urine Color [place] Urine Appearance Turbid Urine pH 5.0 Ur Specific Lyman 1.030 Urine Protein 2+ H Urine Glucose (UA) Negative Urine Ketones Negative Urine Blood Negative Urine Nitrite Positive H Urine Bilirubin 3+ H Urine Urobilinogen 1.0 Ur Leukocyte Esterase 2+ H Urine WBC (Auto) 37 Urine RBC (Auto) 14.8 Urine Casts (Auto) 215 U Pathogenic Cast Auto 2-4 U Epithel Cells (Auto) 18.2 Urine Osmolality Ur Random Sodium Stool Occult Blood Salicylates Opiates Screen Methadone Screen Acetaminophen Barbiturate Screen Phencyclidine Screen Ur Amphetamines Screen MDMA (Ecstasy) Screen Benzodiazepines Screen Cocaine Screen U Marijuana (THC) Screen Alcohol, Quantitative Blood Type O POSITIVE Antibody Screen Negative Crossmatch See Detail 07/14/19 07/14/19 07/15/19 20:00 20:00 00:05 WBC RBC Hgb Hct MCV MCH MCHC RDW Plt Count MPV Absolute Neuts (auto) Total Counted Neutrophils % Neutrophils % (Manual) Band Neutrophils % Lymphocytes % Lymphocytes % (Manual) Monocytes % Monocytes % (Manual) Eosinophils % Eosinophils % (Manual) Basophils % Myelocytes % (Man) Nucleated RBC % Metamyelocytes Hypochromia Platelet Estimate Platelet Comment Anisocytosis Microcytosis PT with INR INR PTT (Actin FS) Fibrinogen D-Dimer Anticoagulation Therapy No Result Required. Puncture Site No Result Required. ABG pH 7.18 L* ABG pCO2 at Pt Temp 34.4 L ABG pO2 at Pt Temp 91.4 ABG HCO3 12.2 L ABG O2 Sat (Measured) 92.2 L ABG O2 Content No Result Required. ABG Base Excess -14.8 L Guille Test No Result Required. Carboxyhemoglobin < 0.5 Methemoglobin 1.1 O2 Delivery Device No Result Required. Oxygen Flow Rate No Result Required. Vent Mode No Result Required. Vent Rate No Result Required. Mechanical Rate No Result Required. PEEP Pressure Support Vent No Result Required. Sodium Potassium Chloride Carbon Dioxide Anion Gap BUN Creatinine Est GFR (CKD-EPI)AfAm Est GFR (CKD-EPI)NonAf POC Glucometer Random Glucose Hemoglobin A1c % Lactic Acid Calcium Phosphorus Magnesium Total Bilirubin AST ALT Alkaline Phosphatase Ammonia 73.00 H Creatine Kinase Creatine Kinase Index CK-MB (CK-2) Troponin I Total Protein Albumin Lipase Urine Color Urine Appearance Urine pH Ur Specific [place] Urine Protein Urine Glucose (UA) Urine Ketones Urine Blood Urine Nitrite Urine Bilirubin Urine Urobilinogen Ur Leukocyte Esterase Urine WBC (Auto) Urine RBC (Auto) Urine Casts (Auto) U Pathogenic Cast Auto U Epithel Cells (Auto) Urine Osmolality Ur Random Sodium Stool Occult Blood Salicylates Opiates Screen Methadone Screen Acetaminophen Barbiturate Screen Phencyclidine Screen Ur Amphetamines Screen MDMA (Ecstasy) Screen Benzodiazepines Screen Cocaine Screen U Marijuana (THC) Screen Alcohol, Quantitative Blood Type O POSITIVE Antibody Screen Crossmatch 07/15/19 07/15/19 07/15/19 00:05 00:05 00:05 WBC 37.2 H* RBC 3.54 L Hgb 7.3 L Hct 25.1 L D MCV 71.0 L MCH 20.7 L MCHC 29.1 L RDW 17.8 H Plt Count 621 H D MPV 8.5 Absolute Neuts (auto) 32.8 H Total Counted 100 Neutrophils % 88.1 H Neutrophils % (Manual) 54.0 Band Neutrophils % 24.0 Lymphocytes % 5.6 L D Lymphocytes % (Manual) 5.0 L Monocytes % 3.7 L Monocytes % (Manual) 6 D Eosinophils % 2.0 Eosinophils % (Manual) 1.0 Basophils % 0.6 D Myelocytes % (Man) 2 Nucleated RBC % 0 Metamyelocytes 13 H D Hypochromia 2+ Platelet Estimate Increased Platelet Comment No clotting detected Anisocytosis 1+ Microcytosis PT with INR 35.80 H INR 3.00 H PTT (Actin FS) 37.0 H Fibrinogen D-Dimer Anticoagulation Therapy Puncture Site ABG pH ABG pCO2 at Pt Temp ABG pO2 at Pt Temp ABG HCO3 ABG O2 Sat (Measured) ABG O2 Content ABG Base Excess Guille Test Carboxyhemoglobin Methemoglobin O2 Delivery Device Oxygen Flow Rate Vent Mode Vent Rate Mechanical Rate PEEP Pressure Support Vent Sodium 133 L Potassium 4.6 Chloride 96 L Carbon Dioxide 16 L Anion Gap 21 H BUN 72.7 H Creatinine 3.1 H Est GFR (CKD-EPI)AfAm 16.72 Est GFR (CKD-EPI)NonAf 14.42 POC Glucometer Random Glucose 117 H Hemoglobin A1c % Lactic Acid Calcium 6.6 L* Phosphorus Magnesium Total Bilirubin 1.7 H AST 139 H ALT 35 Alkaline Phosphatase 143 H Ammonia Creatine Kinase Creatine Kinase Index CK-MB (CK-2) Troponin I Total Protein 4.3 L Albumin 1.3 L Lipase Urine Color Urine Appearance Urine pH Ur Specific [place] Urine Protein Urine Glucose (UA) Urine Ketones Urine Blood Urine Nitrite Urine Bilirubin Urine Urobilinogen Ur Leukocyte Esterase Urine WBC (Auto) Urine RBC (Auto) Urine Casts (Auto) U Pathogenic Cast Auto U Epithel Cells (Auto) Urine Osmolality Ur Random Sodium Stool Occult Blood Salicylates Opiates Screen Methadone Screen Acetaminophen Barbiturate Screen Phencyclidine Screen Ur Amphetamines Screen MDMA (Ecstasy) Screen Benzodiazepines Screen Cocaine Screen U Marijuana (THC) Screen Alcohol, Quantitative Blood Type Antibody Screen Crossmatch 07/15/19 07/15/19 07/15/19 00:05 00:05 00:30 WBC RBC Hgb Hct MCV MCH MCHC RDW Plt Count MPV Absolute Neuts (auto) Total Counted Neutrophils % Neutrophils % (Manual) Band Neutrophils % Lymphocytes % Lymphocytes % (Manual) Monocytes % Monocytes % (Manual) Eosinophils % Eosinophils % (Manual) Basophils % Myelocytes % (Man) Nucleated RBC % Metamyelocytes Hypochromia Platelet Estimate Platelet Comment Anisocytosis Microcytosis PT with INR INR PTT (Actin FS) Fibrinogen > 500.0 H D-Dimer 3763 H Anticoagulation Therapy No Result Required. Puncture Site Right brachial ABG pH 7.07 L* ABG pCO2 at Pt Temp 42.1 ABG pO2 at Pt Temp 87.5 ABG HCO3 11.6 L ABG O2 Sat (Measured) 89.3 L ABG O2 Content 88.4 ABG Base Excess -17.0 L Guille Test No Result Required. Carboxyhemoglobin Methemoglobin O2 Delivery Device Mech vent Oxygen Flow Rate 100 Vent Mode A/c Vent Rate 14 Mechanical Rate No Result Required. PEEP 5.0 Pressure Support Vent 450 Sodium Potassium Chloride Carbon Dioxide Anion Gap BUN Creatinine Est GFR (CKD-EPI)AfAm Est GFR (CKD-EPI)NonAf POC Glucometer Random Glucose Hemoglobin A1c % Lactic Acid 8.9 H* Calcium Phosphorus Magnesium Total Bilirubin AST ALT Alkaline Phosphatase Ammonia Creatine Kinase Creatine Kinase Index CK-MB (CK-2) Troponin I Total Protein Albumin Lipase Urine Color Urine Appearance Urine pH Ur Specific [place] Urine Protein Urine Glucose (UA) Urine Ketones Urine Blood Urine Nitrite Urine Bilirubin Urine Urobilinogen Ur Leukocyte Esterase Urine WBC (Auto) Urine RBC (Auto) Urine Casts (Auto) U Pathogenic Cast Auto U Epithel Cells (Auto) Urine Osmolality Ur Random Sodium Stool Occult Blood Salicylates Opiates Screen Methadone Screen Acetaminophen Barbiturate Screen Phencyclidine Screen Ur Amphetamines Screen MDMA (Ecstasy) Screen Benzodiazepines Screen Cocaine Screen U Marijuana (THC) Screen Alcohol, Quantitative Blood Type Antibody Screen Crossmatch 07/15/19 07/15/19 07/15/19 00:30 02:15 04:40 WBC RBC Hgb Hct MCV MCH MCHC RDW Plt Count MPV Absolute Neuts (auto) Total Counted Neutrophils % Neutrophils % (Manual) Band Neutrophils % Lymphocytes % Lymphocytes % (Manual) Monocytes % Monocytes % (Manual) Eosinophils % Eosinophils % (Manual) Basophils % Myelocytes % (Man) Nucleated RBC % Metamyelocytes Hypochromia Platelet Estimate Platelet Comment Anisocytosis Microcytosis PT with INR INR PTT (Actin FS) Fibrinogen D-Dimer Anticoagulation Therapy Puncture Site ABG pH ABG pCO2 at Pt Temp ABG pO2 at Pt Temp ABG HCO3 ABG O2 Sat (Measured) ABG O2 Content ABG Base Excess Guille Test Carboxyhemoglobin Methemoglobin O2 Delivery Device Oxygen Flow Rate Vent Mode Vent Rate Mechanical Rate PEEP Pressure Support Vent Sodium Potassium Chloride Carbon Dioxide Anion Gap BUN Creatinine Est GFR (CKD-EPI)AfAm Est GFR (CKD-EPI)NonAf POC Glucometer Random Glucose Hemoglobin A1c % 6.5 H Lactic Acid Calcium Phosphorus Magnesium Total Bilirubin AST ALT Alkaline Phosphatase Ammonia 467.90 H Creatine Kinase Creatine Kinase Index CK-MB (CK-2) Troponin I Total Protein Albumin Lipase Urine Color Urine Appearance Urine pH Ur Specific [place] Urine Protein Urine Glucose (UA) Urine Ketones Urine Blood Urine Nitrite Urine Bilirubin Urine Urobilinogen Ur Leukocyte Esterase Urine WBC (Auto) Urine RBC (Auto) Urine Casts (Auto) U Pathogenic Cast Auto U Epithel Cells (Auto) Urine Osmolality Ur Random Sodium Stool Occult Blood Salicylates 4.8 Opiates Screen Methadone Screen Acetaminophen Barbiturate Screen Phencyclidine Screen Ur Amphetamines Screen MDMA (Ecstasy) Screen Benzodiazepines Screen Cocaine Screen U Marijuana (THC) Screen Alcohol, Quantitative Blood Type Antibody Screen Crossmatch 07/15/19 07/15/19 07/15/19 04:40 04:40 04:40 WBC 33.6 H* RBC 3.70 Hgb 7.8 L Hct 25.9 L MCV 69.8 L MCH 21.2 L MCHC 30.4 L RDW 18.1 H Plt Count 598 H MPV 8.4 Absolute Neuts (auto) 29.7 H Total Counted 100 Neutrophils % 88.2 H Neutrophils % (Manual) 45.0 Band Neutrophils % 26.0 H Lymphocytes % 6.9 L D Lymphocytes % (Manual) 9.0 Monocytes % 2.5 L Monocytes % (Manual) 5 Eosinophils % 2.1 Eosinophils % (Manual) 2.0 Basophils % 0.3 Myelocytes % (Man) 4 H Nucleated RBC % 1 H Metamyelocytes 9 H Hypochromia 2+ Platelet Estimate Increased Platelet Comment No clotting detected Anisocytosis Microcytosis 1+ PT with INR INR PTT (Actin FS) Fibrinogen D-Dimer Anticoagulation Therapy Puncture Site ABG pH ABG pCO2 at Pt Temp ABG pO2 at Pt Temp ABG HCO3 ABG O2 Sat (Measured) ABG O2 Content ABG Base Excess Guille Test Carboxyhemoglobin Methemoglobin O2 Delivery Device Oxygen Flow Rate Vent Mode Vent Rate Mechanical Rate PEEP Pressure Support Vent Sodium 130 L Potassium 4.6 Chloride 95 L Carbon Dioxide 15 L Anion Gap 20 H BUN 73.1 H Creatinine 3.0 H Est GFR (CKD-EPI)AfAm 17.39 Est GFR (CKD-EPI)NonAf 15.01 POC Glucometer Random Glucose 132 H Hemoglobin A1c % Lactic Acid Calcium 6.4 L* Phosphorus 8.3 H Magnesium 2.7 H Total Bilirubin 2.2 H AST 285 H ALT 59 Alkaline Phosphatase 145 H Ammonia Creatine Kinase 3310 H Creatine Kinase Index 3.4 CK-MB (CK-2) 114.8 H Troponin I 0.26 H Total Protein 4.5 L Albumin 1.4 L Lipase 53 L Urine Color Urine Appearance Urine pH Ur Specific [place] Urine Protein Urine Glucose (UA) Urine Ketones Urine Blood Urine Nitrite Urine Bilirubin Urine Urobilinogen Ur Leukocyte Esterase Urine WBC (Auto) Urine RBC (Auto) Urine Casts (Auto) U Pathogenic Cast Auto U Epithel Cells (Auto) Urine Osmolality Ur Random Sodium Stool Occult Blood Salicylates Opiates Screen Methadone Screen Acetaminophen Barbiturate Screen Phencyclidine Screen Ur Amphetamines Screen MDMA (Ecstasy) Screen Benzodiazepines Screen Cocaine Screen U Marijuana (THC) Screen Alcohol, Quantitative Blood Type Antibody Screen Crossmatch 07/15/19 07/15/19 07/15/19 04:40 06:45 08:45 WBC RBC Hgb Hct MCV MCH MCHC RDW Plt Count MPV Absolute Neuts (auto) Total Counted Neutrophils % Neutrophils % (Manual) Band Neutrophils % Lymphocytes % Lymphocytes % (Manual) Monocytes % Monocytes % (Manual) Eosinophils % Eosinophils % (Manual) Basophils % Myelocytes % (Man) Nucleated RBC % Metamyelocytes Hypochromia Platelet Estimate Platelet Comment Anisocytosis Microcytosis PT with INR INR PTT (Actin FS) Fibrinogen D-Dimer Anticoagulation Therapy No Result Required. Puncture Site Arterial line ABG pH 7.22 L ABG pCO2 at Pt Temp 35.9 ABG pO2 at Pt Temp 63.2 L ABG HCO3 14.0 L ABG O2 Sat (Measured) 83.9 L ABG O2 Content 8.9 ABG Base Excess -12.4 L Guille Test No Result Required. Carboxyhemoglobin Methemoglobin O2 Delivery Device Mech vent Oxygen Flow Rate 100 Vent Mode A/c Vent Rate 14 Mechanical Rate No Result Required. PEEP 5.0 Pressure Support Vent 450 Sodium Potassium Chloride Carbon Dioxide Anion Gap BUN Creatinine Est GFR (CKD-EPI)AfAm Est GFR (CKD-EPI)NonAf POC Glucometer Random Glucose Hemoglobin A1c % Lactic Acid 5.7 H* 7.8 H* Calcium Phosphorus Magnesium Total Bilirubin AST ALT Alkaline Phosphatase Ammonia Creatine Kinase Creatine Kinase Index CK-MB (CK-2) Troponin I Total Protein Albumin Lipase Urine Color Urine Appearance Urine pH Ur Specific [place] Urine Protein Urine Glucose (UA) Urine Ketones Urine Blood Urine Nitrite Urine Bilirubin Urine Urobilinogen Ur Leukocyte Esterase Urine WBC (Auto) Urine RBC (Auto) Urine Casts (Auto) U Pathogenic Cast Auto U Epithel Cells (Auto) Urine Osmolality Ur Random Sodium Stool Occult Blood Salicylates Opiates Screen Methadone Screen Acetaminophen Barbiturate Screen Phencyclidine Screen Ur Amphetamines Screen MDMA (Ecstasy) Screen Benzodiazepines Screen Cocaine Screen U Marijuana (THC) Screen Alcohol, Quantitative Blood Type Antibody Screen Crossmatch 07/15/19 07/15/19 07/15/19 09:30 11:06 12:30 WBC RBC Hgb Hct MCV MCH MCHC RDW Plt Count MPV Absolute Neuts (auto) Total Counted Neutrophils % Neutrophils % (Manual) Band Neutrophils % Lymphocytes % Lymphocytes % (Manual) Monocytes % Monocytes % (Manual) Eosinophils % Eosinophils % (Manual) Basophils % Myelocytes % (Man) Nucleated RBC % Metamyelocytes Hypochromia Platelet Estimate Platelet Comment Anisocytosis Microcytosis PT with INR INR PTT (Actin FS) Fibrinogen D-Dimer Anticoagulation Therapy Puncture Site ABG pH ABG pCO2 at Pt Temp ABG pO2 at Pt Temp ABG HCO3 ABG O2 Sat (Measured) ABG O2 Content ABG Base Excess Guille Test Carboxyhemoglobin Methemoglobin O2 Delivery Device Oxygen Flow Rate Vent Mode Vent Rate Mechanical Rate PEEP Pressure Support Vent Sodium Potassium Chloride Carbon Dioxide Anion Gap BUN Creatinine Est GFR (CKD-EPI)AfAm Est GFR (CKD-EPI)NonAf POC Glucometer Random Glucose Hemoglobin A1c % Lactic Acid 5.3 H* Calcium Phosphorus Magnesium Total Bilirubin AST ALT Alkaline Phosphatase Ammonia Creatine Kinase Creatine Kinase Index CK-MB (CK-2) Troponin I 0.39 H Total Protein Albumin Lipase Urine Color Urine Appearance Urine pH Ur Specific [place] Urine Protein Urine Glucose (UA) Urine Ketones Urine Blood Urine Nitrite Urine Bilirubin Urine Urobilinogen Ur Leukocyte Esterase Urine WBC (Auto) Urine RBC (Auto) Urine Casts (Auto) U Pathogenic Cast Auto U Epithel Cells (Auto) Urine Osmolality Ur Random Sodium Stool Occult Blood Positive Salicylates Opiates Screen Methadone Screen Acetaminophen Barbiturate Screen Phencyclidine Screen Ur Amphetamines Screen MDMA (Ecstasy) Screen Benzodiazepines Screen Cocaine Screen U Marijuana (THC) Screen Alcohol, Quantitative Blood Type Antibody Screen Crossmatch 07/15/19 07/15/19 07/15/19 13:30 13:30 13:30 WBC RBC Hgb Hct MCV MCH MCHC RDW Plt Count MPV Absolute Neuts (auto) Total Counted Neutrophils % Neutrophils % (Manual) Band Neutrophils % Lymphocytes % Lymphocytes % (Manual) Monocytes % Monocytes % (Manual) Eosinophils % Eosinophils % (Manual) Basophils % Myelocytes % (Man) Nucleated RBC % Metamyelocytes Hypochromia Platelet Estimate Platelet Comment Anisocytosis Microcytosis PT with INR INR PTT (Actin FS) Fibrinogen D-Dimer Anticoagulation Therapy No Result Required. Puncture Site Arterial line ABG pH 7.18 L* ABG pCO2 at Pt Temp 38.1 ABG pO2 at Pt Temp 84.1 ABG HCO3 13.5 L ABG O2 Sat (Measured) 91.5 L ABG O2 Content No Result Required. ABG Base Excess -13.4 L Guille Test Positive Carboxyhemoglobin Methemoglobin O2 Delivery Device No Result Required. Oxygen Flow Rate 100 Vent Mode A/c400/24 Vent Rate No Result Required. Mechanical Rate No Result Required. PEEP 10.0 Pressure Support Vent No Result Required. Sodium Potassium Chloride Carbon Dioxide Anion Gap BUN Creatinine Est GFR (CKD-EPI)AfAm Est GFR (CKD-EPI)NonAf POC Glucometer Random Glucose Hemoglobin A1c % Lactic Acid Calcium Phosphorus Magnesium Total Bilirubin AST ALT Alkaline Phosphatase Ammonia Creatine Kinase Creatine Kinase Index CK-MB (CK-2) Troponin I Total Protein Albumin Lipase Urine Color Urine Appearance Urine pH Ur Specific Lyman Urine Protein Urine Glucose (UA) Urine Ketones Urine Blood Urine Nitrite Urine Bilirubin Urine Urobilinogen Ur Leukocyte Esterase Urine WBC (Auto) Urine RBC (Auto) Urine Casts (Auto) U Pathogenic Cast Auto U Epithel Cells (Auto) Urine Osmolality 327 Ur Random Sodium 48 Stool Occult Blood Salicylates Opiates Screen Methadone Screen Acetaminophen Barbiturate Screen Phencyclidine Screen Ur Amphetamines Screen MDMA (Ecstasy) Screen Benzodiazepines Screen Cocaine Screen U Marijuana (THC) Screen Alcohol, Quantitative Blood Type Antibody Screen Crossmatch 07/15/19 07/15/19 16:20 16:20 WBC RBC Hgb Hct MCV MCH MCHC RDW Plt Count MPV Absolute Neuts (auto) Total Counted Neutrophils % Neutrophils % (Manual) Band Neutrophils % Lymphocytes % Lymphocytes % (Manual) Monocytes % Monocytes % (Manual) Eosinophils % Eosinophils % (Manual) Basophils % Myelocytes % (Man) Nucleated RBC % Metamyelocytes Hypochromia Platelet Estimate Platelet Comment Anisocytosis Microcytosis PT with INR INR PTT (Actin FS) Fibrinogen D-Dimer Anticoagulation Therapy Puncture Site ABG pH ABG pCO2 at Pt Temp ABG pO2 at Pt Temp ABG HCO3 ABG O2 Sat (Measured) ABG O2 Content ABG Base Excess Guille Test Carboxyhemoglobin Methemoglobin O2 Delivery Device Oxygen Flow Rate Vent Mode Vent Rate Mechanical Rate PEEP Pressure Support Vent Sodium 135 L Potassium 4.5 Chloride 98 Carbon Dioxide 19 L Anion Gap 18 H BUN 77.7 H Creatinine 2.6 H Est GFR (CKD-EPI)AfAm 20.68 Est GFR (CKD-EPI)NonAf 17.84 POC Glucometer Random Glucose 208 H Hemoglobin A1c % Lactic Acid 6.0 H* Calcium 5.4 L* Phosphorus Magnesium Total Bilirubin 2.3 H AST 552 H ALT 90 H Alkaline Phosphatase 120 H Ammonia Creatine Kinase 3344 H Creatine Kinase Index 3.2 CK-MB (CK-2) 108.2 H Troponin I 0.62 H* Total Protein 4.0 L Albumin 1.2 L Lipase Urine Color Urine Appearance Urine pH Ur Specific Lyman Urine Protein Urine Glucose (UA) Urine Ketones Urine Blood Urine Nitrite Urine Bilirubin Urine Urobilinogen Ur Leukocyte Esterase Urine WBC (Auto) Urine RBC (Auto) Urine Casts (Auto) U Pathogenic Cast Auto U Epithel Cells (Auto) Urine Osmolality Ur Random Sodium Stool Occult Blood Salicylates Opiates Screen Methadone Screen Acetaminophen Barbiturate Screen Phencyclidine Screen Ur Amphetamines Screen MDMA (Ecstasy) Screen Benzodiazepines Screen Cocaine Screen U Marijuana (THC) Screen Alcohol, Quantitative Blood Type Antibody Screen Crossmatch CXR results and images reviewed ASSESSMENT AND PLAN: 69 yof with found down on floor, admitted with septic shock, multiple organ failure, pneumoperitoneum with perforated viscous, pneumonia, likely aspiration. Acute Hypoxic Respiratory Failure Pneumoperitoneum/ r/o Perforated Viscous Pneumonia ARDS Septic Shock Lactic Acidosis Acute Kidney Injury +Troponins likely Demand Ischemia Hyponatremia Elevated LFTs likely Ischemic Injury r/o GI Bleed Coagulopathy r/o Pelvic Mass Anemia Thrombocytosis Possible liver cirrhosis Plan: Vent management/Sedation/pressors per ICU. On Bicarb drip per renal. ID input noted, meropenem/flagyl Surgery input noted, follow up for intervention GI input noted. Trend cardiac enzymes. 2D echo. Lactate Stress dose steroids FFP Protonix ICU monitoring Prognosis grave. Discussed with ICU team. Critical Care Total Critical Care Time (in minutes): 36 Critical Care Statement: The care of this patient involved high complexity decision making to prevent further life threatening deterioration of the patient 's condition and/or to evaluate & treat vital organ system(s) failure or risk of failure.
[2019-07-15] MEDS ORDERED: CALCIUM GLUCONATE 10% - 1,000 MG/10 ML VIAL ONE (19:41)
--- NOTE | 2019-07-15 19:54 | PN ---
Progress Note (short form) - Note Progress Note: HPI: 69yo F with H/o glaucoma who originally presented tot he ED with AMS. Per EMR pt reported 2 weeks of abdominal pain associated with nausea, vomiting, and diarrhea for about 4-5 episodes per day. Pt refused to seek medical help and only used Motrin OTC for the pain. Pt was also in a state of poor hygeine and was unable to perform ADLs, but continued to refuse help. Pt was found unresponsive in her own feces and during transport pt was given Cardizem 25 for Afib RVR. As a result pt was bradycardic to 30's at arrival which subsequently turned to continued Afib with RVR up to 170's. Pt was stabilized and admitted to ICU for perforated bowel viscus, aspiration pneumonitis developing into ARDS , and acute blood loss anemia attributed to the bowel perforation. Currently pt is on 2 pressors (Levophed and Vasopressin) and remains intubated with only sedative of fentanyl due to labile pressures. Rest of HPI unobtainable due to clinical condition PE: Gen: Intubated and sedated with Fentanyl only HEENT: NC/AT, sluggishly reactive pupils without responsive to threat or painful stimuli, gag reflex +, dry mucosa noted, OG with notable bloodtinged gastric contents. NECK: R IJ C/D/I, no JVD LUNGS: Crackles noted throughout. AC mode of vent with settings at 450 TV/PEEP5/ rate 14 with overbreathing to 36/FiO2 100% CARDIAC: Irregularly irregular and tachycardic to 100's. No overt murmurs appreciated ABD: Tensely distended without any Duffy/Rich's signs. No bowel sounds. Tenderness unable to be assessed. No skin changes or caput medusa noted EXT: No edema, cool, pulses weak, but intact b/l SKIN: No skin breakdown appreciated; will re-evaluate for sacral decubiti with routine care due to pt size A/P Acute hypoxic respiratory failure Septic shock 2/2 to perforated bowel ARDS High anion gap metabolic acidosis 2/2 Lactic Acidosis Acute blood loss anemia Demand ischemia Ischemic liver injury Hyponatremia Neuro: Continue to assess mentation Pt without meaningful movements with only Fentanyl Likely will have to paralyze + propofol sedation if diaphragmatic decompensation occurs Noncontrast head CT reviewed Pulm: ARDS vent settings to be adjusted by ICU team --Monitor Ppl Empiric aspiration pneumonitis abx per ID Aspiration precautions: HOB elevation and routine care Cardiac: Levophed 25 and Vasopressin 4U/hr noted --Add hydrocortisone for pressor refractory shock per ICU team --Cannot use Fludro in this case due to perforated viscus CVP monitoring: goal 4-6 given ARDS management Monitor for tachyarrhythmias given pressors No evidence of cardiogenic shock at this time Demand ischemia given clinical condition; trend Trop GI: Surgery not indicated in this patient due to tenuous status and high pressor requirements Monitor Hgb with normal transfusion thresholds FFP ordered Monitor NG output Monitor LFTs and avoid hepatotoxic agents --> shock liver due to decreased CO Protonix gtt to continue ID: Empiric meropenem per Id for multiple bacterial translocations Monitor fever trend and WBC Lactic acidosis noted which can be multifactorial with infective processes and diaphragmatic decompensation given degree of tachypnea --Continue hydration and possibility of paralysis with Train of 4 for decreased LA formation Renal: Anion gap metabolic acidosis with poor compensation of respiratory drive Bicarb gtt to continue Monitor UO for adequate hydration status Heme: FFP and monitor Hgb Normal transfusion thresholds: 7.0 Order fibrinogen and coags given possibility of DIC as well FEN: Fluids: IVF hydration per CVP goal of 4-6 Electrolyte abnormalities: Hypovolemic hyponatremia (solute loss give whole blood loss) Nutrition: NPO PPX: DVT - SCDs GI - PPI as above Dispo ICU monitoring and family discussion Prognosis dire Case discussed with Dr. Tavera and ICU team Cheikh Eagle, DO - IM PGY-3
[2019-07-15] MEDS ORDERED: AMIODARONE HCL 150 MG/3 ML VIAL IVPUSH ONE (20:40)
[2019-07-15] MEDS ORDERED: AMIODARONE IN DEXTROSE,ISO-OSM 360 MG/200 ML BAG IVPB ONE (20:41)
[2019-07-15] MEDS ORDERED: AMIODARONE IN DEXTROSE,ISO-OSM 150 MG/100 ML BAG IVPB ONE (20:41)
--- NOTE | 2019-07-15 20:45 | PN ---
Progress Note (short form) - Note Progress Note: Pt found to have HR 145-150bpm, stat EKG done reveals possible aflutter/ rapid afib similar to flutter. Rate 148bpm. With ST-T wave changes in lateral leads. Pt also on levo 25, vaso 6. D/w Dr. Mitchell, cardio on case. will control with amio for now. Will give bolus 150mg x 1 followed by amio gtt. Batsheva Reilly MD PGY-3
[2019-07-15] MEDS: PANTOPRAZOLE SODIUM 40 MG VIAL IVPUSH SCH (21:55)
[2019-07-15] MEDS: CHLORHEXIDINE GLUCONATE 4% CLEANSER FOR DECOLONIZATION TP SCH (21:55)
[2019-07-15 22:42] LABS: ARTERIAL BLD GAS O2 SATURATION 62.5 % (95-98); ARTERIAL BLOOD GAS BASE EXCESS -13.7 meq/l (-2-2); ARTERIAL BLOOD GAS PCO2 56.2 mmHg (35-45); ARTERIAL BLOOD GAS pH 7.06 (7.35-7.45)
[2019-07-15 22:44] LABS: ARTERIAL BLOOD GAS PO2 < 49 mmHg (80-100)
--- NOTE | 2019-07-15 23:36 | PN ---
Progress Note (short form) - Note Progress Note: Last ABG reviewed. Discussed w/ respiratory; likely contaminated w/ venous blood. pH 7.06 likely accurate however. Vent settings have been adjusted based on [facility] protocol: 1. Oxygenation goal likely low. though not accurately reflected on ABG given contamination : thus PEEP increased from 10>12 2. Plateau pressure ~32. Pt IBW 50kg. Tidal volume changed from 8 ml/kg to 7ml/ kg . TV 400>350 3. No vent dyssynchrony at this time so will not paralyze 4. pH 7.06. will increase rate for now from 24 > 26. 5. Will repeat ABG (femoral) as pt now w/ mottling, ischemia thus making frequent ABG from UE difficult Batsheva Reilly MD PGY-3 ICU team
[2019-07-16] MEDS: HYDROCORTISONE SOD SUCCINATE 100 MG/2 ML VIAL IVPB SCH ×4 (02:00→21:20)
[2019-07-16] MEDS ORDERED: fentaNYL CITRATE 250 MCG/5 ML VIAL ONE ×4 (02:21→21:04)
[2019-07-16] MEDS ORDERED: NOREPINEPHRINE BITARTRATE 4 MG/4 ML ML IV ONE ×2 (02:22→14:38)
[2019-07-16] MEDS: NOREPINEPHRINE BITARTRATE 8,000 MCG in DEXTROSE 5%-WATER - 492 ML IV SCH ×2 (03:00→19:00)
[2019-07-16] MEDS: AMIODARONE IN DEXTROSE,ISO-OSM 360 MG/200 ML BAG IVPB SCH ×2 (04:09→19:00)
[2019-07-16] MEDS: FENTANYL INJECTION 500 MCG in DEXTROSE 5%-WATER - 90 ML IVPB SCH ×2 (05:48→22:29)
[2019-07-16] MEDS: VASOPRESSIN 50 UNITS in SODIUM CHLORIDE 97.5 ML IVPB SCH (05:49)
[2019-07-16 06:33] LABS: INR 1.64 (0.83-1.09); PROTHROMBIN TIME (PATIENT) 19.5 SEC (9.7-13.0)
[2019-07-16 06:36] LABS: ACTIVATED PTT 47.6 SECONDS (25.2-36.5)
[2019-07-16 06:59] LABS: ARTERIAL BLD GAS O2 SATURATION 92.5 % (95-98); ARTERIAL BLOOD GAS BASE EXCESS -21.9 meq/l (-2-2); ARTERIAL BLOOD GAS PCO2 55.2 mmHg (35-45)
[2019-07-16 07:03] LABS: ARTERIAL BLOOD GAS PO2 107 mmHg (80-100)
[2019-07-16 07:13] LABS: ALBUMIN 1.2 g/dl (3.4-5.0); BILIRUBIN,TOTAL 2.4 mg/dL (0.2-1); BLOOD UREA NITROGEN 75.4 mg/dL (7-18); CREATININE 2.6 mg/dL (0.55-1.3); MAGNESIUM 2.9 mg/dL (1.8-2.4); TOT PROT 4.1 g/dl (6.4-8.2)
[2019-07-16 07:17] LABS: ARTERIAL BLOOD GAS pH 6.88 (7.35-7.45)
[2019-07-16 07:19] LABS: CALCIUM 7.8 mg/dL (8.5-10.1)
[2019-07-16] MEDS ORDERED: SODIUM BICARBONATE 8.4% 50 MEQ/50 ML DISP.SYRIN IVPUSH ONE ×6 (07:24→23:52)
[2019-07-16] MEDS ORDERED: SODIUM BICARBONATE 8.4% 50 MEQ/50 ML VIAL ONE ×4 (07:36→23:54)
[2019-07-16] MEDS ORDERED: LORazepam 2 MG/ML SDV VIAL IVPUSH ONE ×2 (08:12→15:45)
[2019-07-16] MEDS ORDERED: LORazepam 2 MG/ML SDV VIAL ONE (08:12)
[2019-07-16 08:22] LABS: BASO % 0.3 % (0-2.0); EOS % 0.8 % (0-4.5); HEMATOCRIT 24.8 % (32.4-45.2); HEMOGLOBIN 7.2 GM/dL (10.7-15.3); MCH 22.7 pg (25.7-33.7); MEAN CELL VOLUME 78.2 fl (80-96); MEAN PLT VOLUME 8.3 fl (7.5-11.1); MONO % 0.9 % (3.8-10.2); PLATELET COUNT 281 K/MM3 (134-434); RBC 3.17 M/mm3 (3.60-5.2); RDW 21.6 % (11.6-15.6); WHITE BLOOD COUNT 30.2 K/mm3 (4.0-10.0)
[2019-07-16] MEDS ORDERED: INSULIN REGULAR HUMAN 100 UNITS/ML *VIAL IVPUSH ONE (08:45)
[2019-07-16] MEDS ORDERED: DEXTROSE 50%-WATER - 25 GM/50 ML VIAL IVPUSH ONE (08:45)
[2019-07-16] MEDS ORDERED: CALCIUM GLUCONATE 10% - 1,000 MG/10 ML VIAL IVPUSH ONE (08:47)
[2019-07-16] MEDS ORDERED: DEXTROSE 50%-WATER 25 GM/50 ML DISP.SYRIN ONE (08:53)
[2019-07-16] MEDS ORDERED: MEROPENEM 1 GM VIAL (RESTRICTED TO ID) IVPB ONE (08:54)
[2019-07-16] MEDS ORDERED: CALCIUM GLUCONATE 10% - 1,000 MG/10 ML VIAL ONE (08:54)
[2019-07-16] MEDS ORDERED: DEXTROSE 5%-WATER 100 ML IVPB ONE (08:54)
[2019-07-16] MEDS: MEROPENEM 1 GM in DEXTROSE 5%-WATER 100 ML IVPB SCH (10:17)
[2019-07-16] MEDS: MUPIROCIN 2% TOPICAL OINTMENT FOR DECOLONIZATION NS SCH ×2 (11:17→21:19)
[2019-07-16 12:29] LABS: PLATELET ESTIMATE NORMAL
--- NOTE | 2019-07-16 12:47 | PN ---
Teaching Attending Note Name of Resident: Adin Velasquez ATTENDING PHYSICIAN STATEMENT I saw and evaluated the patient. I reviewed the resident's note and discussed the case with the resident. I agree with the resident's findings and plan as documented. SUBJECTIVE: Patient seen and examined in the ICU. Remains intubated and sedated. AC Mode of vent, 100% FiO2. NE @ 20mcq and Vasopressin @ 3 units for hemodynamic support. Diffuse mottling noted, extremities and abdominal wall. OBJECTIVE: Intake & Output 07/13/19 07/14/19 07/15/19 07/16/19 23:59 23:59 23:59 23:59 Intake Total 9894 3365 Output Total 0 1100 70 Balance 0 8794 3295 Weight 180 lb 174 lb Last Vital Signs Temp Pulse Resp BP Pulse Ox 96.6 F L 102 H 29 H 82/58 L 80 L 07/16/19 10:00 07/16/19 12:00 07/16/19 12:12 07/16/19 12:00 07/15/19 23:17 Active Medications Acetaminophen (Ofirmev Injection -) 1,000 mg IVPB Q6H PRN PRN Reason: FEVER Last Admin: 07/15/19 13:56 Dose: 1,000 mg Chlorhexidine Gluconate (Hibiclens For Decolonization -) 1 applic TP HS BERTRAM Last Admin: 07/15/19 21:55 Dose: 1 applic Hydrocortisone Sodium Succinate (Solu-Cortef -) 50 mg IVPB Q6H-IV BERTRAM Last Admin: 07/16/19 11:17 Dose: 50 mg Metronidazole (Flagyl 500mg Premixed Ivpb -) 500 mg in 100 mls @ 100 mls/hr IVPB Q8H-IV BERTRAM Last Admin: 07/16/19 09:01 Dose: 100 mls/hr Norepinephrine Bitartrate 8, (000 mcg/ Dextrose) 500 mls @ 18.75 mls/hr IV TITR BERTRAM; Protocol Last Titration: 07/16/19 08:05 Dose: 20 mcg/min, 75 mls/hr Fentanyl 500 mcg/ Dextrose 100 mls @ 1 mls/hr IVPB TITR BERTRAM; Protocol Last Titration: 07/16/19 06:37 Dose: 100 mcg/hr, 20 mls/hr Vasopressin 50 units/ Sodium (Chloride) 100 mls @ 24 mls/hr IVPB TITR BERTRAM; Protocol Last Titration: 07/16/19 08:05 Dose: 0.05 units/min, 6 mls/hr Sodium Bicarbonate 150 meq/ (Dextrose) 1,150 mls @ 100 mls/hr IV Q11H BERTRAM Last Admin: 07/15/19 21:54 Dose: 100 mls/hr Propofol (Diprivan -) 1,000,000 mcg in 100 mls @ 2.368 mls/hr IVPB TITR BERTRAM; Protocol Last Titration: 07/16/19 08:32 Dose: 15 mcg/kg/min, 7.103 mls/hr Amiodarone HCl/Dextrose (Nexterone 360 Mg/200 Ml Bag) 360 mg in 200 mls @ 16.667 mls/hr IVPB TITR BERTRAM; Protocol Last Admin: 07/16/19 04:09 Dose: Not Given Meropenem 500 mg/ Dextrose 100 mls @ 200 mls/hr IVPB Q12H BERTRAM Mupirocin (Bactroban Ointment (For Decolonization) -) 1 applic NS BID BERTRAM Stop: 07/20/19 09:59 Last Admin: 07/16/19 11:17 Dose: 1 applic Pantoprazole Sodium (Protonix Iv) 40 mg IVPUSH BID BERTRAM Last Admin: 07/15/19 21:55 Dose: 40 mg Gen: intubated, sedated, tachypneic Heart: tachycardic, regular Lung: scattered rhonchi Abd: softly distended Ext: + edema, mottled Laboratory Results - last 24 hr 07/14/19 07/15/19 07/15/19 20:00 12:30 13:30 WBC RBC Hgb Hct MCV MCH MCHC RDW Plt Count MPV Absolute Neuts (auto) Neutrophils % Neutrophils % (Manual) Band Neutrophils % Lymphocytes % Lymphocytes % (Manual) Monocytes % Monocytes % (Manual) Eosinophils % Eosinophils % (Manual) Basophils % Basophils % (Manual) Myelocytes % (Man) Promyelocytes % (Man) Blast Cells % (Manual) Nucleated RBC % Metamyelocytes Platelet Estimate PT with INR INR PTT (Actin FS) Fibrinogen Anticoagulation Therapy No Result Required. Puncture Site Arterial line ABG pH 7.18 L* ABG pCO2 at Pt Temp 38.1 ABG pO2 at Pt Temp 84.1 ABG HCO3 13.5 L ABG O2 Sat (Measured) 91.5 L ABG O2 Content No Result Required. ABG Base Excess -13.4 L Guille Test Positive O2 Delivery Device No Result Required. Oxygen Flow Rate 100 Vent Mode A/c400/24 Vent Rate No Result Required. Mechanical Rate No Result Required. PEEP 10.0 Pressure Support Vent No Result Required. Sodium Potassium Chloride Carbon Dioxide Anion Gap BUN Creatinine Est GFR (CKD-EPI)AfAm Est GFR (CKD-EPI)NonAf Random Glucose Lactic Acid 5.3 H* Calcium Phosphorus Magnesium Total Bilirubin AST ALT Alkaline Phosphatase Creatine Kinase Creatine Kinase Index CK-MB (CK-2) Troponin I Total Protein Albumin Urine Osmolality Ur Random Creatinine Ur Random Sodium Random Vancomycin Blood Type O POSITIVE Antibody Screen Negative Crossmatch See Detail 07/15/19 07/15/19 07/15/19 13:30 13:30 16:20 WBC RBC Hgb Hct MCV MCH MCHC RDW Plt Count MPV Absolute Neuts (auto) Neutrophils % Neutrophils % (Manual) Band Neutrophils % Lymphocytes % Lymphocytes % (Manual) Monocytes % Monocytes % (Manual) Eosinophils % Eosinophils % (Manual) Basophils % Basophils % (Manual) Myelocytes % (Man) Promyelocytes % (Man) Blast Cells % (Manual) Nucleated RBC % Metamyelocytes Platelet Estimate PT with INR INR PTT (Actin FS) Fibrinogen Anticoagulation Therapy Puncture Site ABG pH ABG pCO2 at Pt Temp ABG pO2 at Pt Temp ABG HCO3 ABG O2 Sat (Measured) ABG O2 Content ABG Base Excess Guille Test O2 Delivery Device Oxygen Flow Rate Vent Mode Vent Rate Mechanical Rate PEEP Pressure Support Vent Sodium 135 L Potassium 4.5 Chloride 98 Carbon Dioxide 19 L Anion Gap 18 H BUN 77.7 H Creatinine 2.6 H Est GFR (CKD-EPI)AfAm 20.68 Est GFR (CKD-EPI)NonAf 17.84 Random Glucose 208 H Lactic Acid Calcium 5.4 L* Phosphorus Magnesium Total Bilirubin 2.3 H AST 552 H ALT 90 H Alkaline Phosphatase 120 H Creatine Kinase 3344 H Creatine Kinase Index 3.2 CK-MB (CK-2) 108.2 H Troponin I 0.62 H* Total Protein 4.0 L Albumin 1.2 L Urine Osmolality 327 Ur Random Creatinine Ur Random Sodium 48 Random Vancomycin Blood Type Antibody Screen Crossmatch 07/15/19 07/15/19 07/16/19 16:20 22:30 02:30 WBC RBC Hgb Hct MCV MCH MCHC RDW Plt Count MPV Absolute Neuts (auto) Neutrophils % Neutrophils % (Manual) Band Neutrophils % Lymphocytes % Lymphocytes % (Manual) Monocytes % Monocytes % (Manual) Eosinophils % Eosinophils % (Manual) Basophils % Basophils % (Manual) Myelocytes % (Man) Promyelocytes % (Man) Blast Cells % (Manual) Nucleated RBC % Metamyelocytes Platelet Estimate PT with INR INR PTT (Actin FS) Fibrinogen Anticoagulation Therapy No Result Required. Puncture Site Left brachial ABG pH 7.06 L* ABG pCO2 at Pt Temp 56.2 H ABG pO2 at Pt Temp < 49 L* ABG HCO3 15.0 L ABG O2 Sat (Measured) 62.5 L ABG O2 Content No Result Required. ABG Base Excess -13.7 L Guille Test No Result Required. O2 Delivery Device No Result Required. Oxygen Flow Rate No Result Required. Vent Mode No Result Required. Vent Rate 24 Mechanical Rate No Result Required. PEEP 10.0 Pressure Support Vent No Result Required. Sodium Potassium Chloride Carbon Dioxide Anion Gap BUN Creatinine Est GFR (CKD-EPI)AfAm Est GFR (CKD-EPI)NonAf Random Glucose Lactic Acid 6.0 H* 13.3 H* Calcium Phosphorus Magnesium Total Bilirubin AST ALT Alkaline Phosphatase Creatine Kinase Creatine Kinase Index CK-MB (CK-2) Troponin I Total Protein Albumin Urine Osmolality Ur Random Creatinine Ur Random Sodium Random Vancomycin Blood Type Antibody Screen Crossmatch 07/16/19 07/16/19 07/16/19 02:30 02:30 05:40 WBC RBC Hgb Hct MCV MCH MCHC RDW Plt Count MPV Absolute Neuts (auto) Neutrophils % Neutrophils % (Manual) Band Neutrophils % Lymphocytes % Lymphocytes % (Manual) Monocytes % Monocytes % (Manual) Eosinophils % Eosinophils % (Manual) Basophils % Basophils % (Manual) Myelocytes % (Man) Promyelocytes % (Man) Blast Cells % (Manual) Nucleated RBC % Metamyelocytes Platelet Estimate PT with INR INR PTT (Actin FS) Fibrinogen Anticoagulation Therapy Puncture Site ABG pH ABG pCO2 at Pt Temp ABG pO2 at Pt Temp ABG HCO3 ABG O2 Sat (Measured) ABG O2 Content ABG Base Excess Guille Test O2 Delivery Device Oxygen Flow Rate Vent Mode Vent Rate Mechanical Rate PEEP Pressure Support Vent Sodium Potassium Chloride Carbon Dioxide Anion Gap BUN Creatinine Est GFR (CKD-EPI)AfAm Est GFR (CKD-EPI)NonAf Random Glucose Lactic Acid Calcium Phosphorus Magnesium Total Bilirubin AST ALT Alkaline Phosphatase Creatine Kinase Creatine Kinase Index CK-MB (CK-2) Troponin I 0.68 H* Total Protein Albumin Urine Osmolality Ur Random Creatinine 25.0 L Ur Random Sodium Random Vancomycin 18.5 Blood Type Antibody Screen Crossmatch 07/16/19 07/16/19 07/16/19 05:40 05:40 05:40 WBC 30.2 H* RBC 3.17 L Hgb 7.2 L Hct 24.8 L MCV 78.2 L MCH 22.7 L MCHC 29.0 L RDW 21.6 H Plt Count 281 D MPV 8.3 Absolute Neuts (auto) 27.5 H Neutrophils % 91.0 H Neutrophils % (Manual) 63.1 Band Neutrophils % 16.8 Lymphocytes % 7.0 L Lymphocytes % (Manual) 3.2 L D Monocytes % 0.9 L Monocytes % (Manual) 3 L Eosinophils % 0.8 Eosinophils % (Manual) 0.0 D Basophils % 0.3 Basophils % (Manual) 0.0 Myelocytes % (Man) 3 H D Promyelocytes % (Man) 1 Blast Cells % (Manual) 0 Nucleated RBC % 1 H Metamyelocytes 10 H D Platelet Estimate Normal PT with INR INR PTT (Actin FS) Fibrinogen Anticoagulation Therapy Puncture Site ABG pH ABG pCO2 at Pt Temp ABG pO2 at Pt Temp ABG HCO3 ABG O2 Sat (Measured) ABG O2 Content ABG Base Excess Guille Test O2 Delivery Device Oxygen Flow Rate Vent Mode Vent Rate Mechanical Rate PEEP Pressure Support Vent Sodium 126 L Potassium 6.0 H Chloride 88 L Carbon Dioxide 12 L Anion Gap 26 H BUN 75.4 H Creatinine 2.6 H Est GFR (CKD-EPI)AfAm 20.68 Est GFR (CKD-EPI)NonAf 17.84 Random Glucose 354 H Lactic Acid Calcium 7.8 L Phosphorus 13.0 H* Magnesium 2.9 H Total Bilirubin 2.4 H AST 603 H ALT 103 H Alkaline Phosphatase 141 H Creatine Kinase Creatine Kinase Index CK-MB (CK-2) Troponin I Total Protein 4.1 L Albumin 1.2 L Urine Osmolality Ur Random Creatinine Ur Random Sodium Random Vancomycin Blood Type Antibody Screen Crossmatch 07/16/19 07/16/19 07/16/19 05:40 05:40 05:40 WBC RBC Hgb Hct MCV MCH MCHC RDW Plt Count MPV Absolute Neuts (auto) Neutrophils % Neutrophils % (Manual) Band Neutrophils % Lymphocytes % Lymphocytes % (Manual) Monocytes % Monocytes % (Manual) Eosinophils % Eosinophils % (Manual) Basophils % Basophils % (Manual) Myelocytes % (Man) Promyelocytes % (Man) Blast Cells % (Manual) Nucleated RBC % Metamyelocytes Platelet Estimate PT with INR 19.50 H INR 1.64 H PTT (Actin FS) 47.6 H Fibrinogen 375.0 Anticoagulation Therapy Puncture Site ABG pH ABG pCO2 at Pt Temp ABG pO2 at Pt Temp ABG HCO3 ABG O2 Sat (Measured) ABG O2 Content ABG Base Excess Guille Test O2 Delivery Device Oxygen Flow Rate Vent Mode Vent Rate Mechanical Rate PEEP Pressure Support Vent Sodium Potassium Chloride Carbon Dioxide Anion Gap BUN Creatinine Est GFR (CKD-EPI)AfAm Est GFR (CKD-EPI)NonAf Random Glucose Lactic Acid 14.6 H* Calcium Phosphorus Magnesium Total Bilirubin AST ALT Alkaline Phosphatase Creatine Kinase Creatine Kinase Index CK-MB (CK-2) Troponin I Total Protein Albumin Urine Osmolality Ur Random Creatinine Ur Random Sodium Random Vancomycin Blood Type Antibody Screen Crossmatch 07/16/19 07/16/19 05:40 06:36 WBC RBC Hgb Hct MCV MCH MCHC RDW Plt Count MPV Absolute Neuts (auto) Neutrophils % Neutrophils % (Manual) Band Neutrophils % Lymphocytes % Lymphocytes % (Manual) Monocytes % Monocytes % (Manual) Eosinophils % Eosinophils % (Manual) Basophils % Basophils % (Manual) Myelocytes % (Man) Promyelocytes % (Man) Blast Cells % (Manual) Nucleated RBC % Metamyelocytes Platelet Estimate PT with INR INR PTT (Actin FS) Fibrinogen Anticoagulation Therapy No Result Required. Puncture Site Right brachial ABG pH 6.88 L* ABG pCO2 at Pt Temp 55.2 H ABG pO2 at Pt Temp 107 H ABG HCO3 9.7 L ABG O2 Sat (Measured) 92.5 L ABG O2 Content 92.5 ABG Base Excess -21.9 L Guille Test Not applicable O2 Delivery Device No Result Required. Oxygen Flow Rate Vent Vent Mode A/c Vent Rate 26 Mechanical Rate Yes PEEP 12.0 Pressure Support Vent 350 Sodium Potassium Chloride Carbon Dioxide Anion Gap BUN Creatinine Est GFR (CKD-EPI)AfAm Est GFR (CKD-EPI)NonAf Random Glucose Lactic Acid Calcium Phosphorus Magnesium Total Bilirubin AST ALT Alkaline Phosphatase Creatine Kinase Creatine Kinase Index CK-MB (CK-2) Troponin I 0.64 H* Total Protein Albumin Urine Osmolality Ur Random Creatinine Ur Random Sodium Random Vancomycin Blood Type Antibody Screen Crossmatch ASSESSMENT AND PLAN: Acute Hypoxic Respiratory Failure Pneumoperitoneum/ r/o Perforated Viscous Pneumonia ARDS Septic Shock Lactic Acidosis Acute Kidney Injury +Troponins likely Demand Ischemia Hyponatremia Elevated LFTs likely Ischemic Injury r/o GI Bleed Coagulopathy r/o Pelvic Mass Anemia Thrombocytosis MOF RO ARDS - continue antibiotics - f/u cultures - IVF resuscitation to keep CVP 8-12 - titrate pressors to maintain MAP >65 - monitor urine output, creatinine - titrate PEEP, FiO2 to keep SpO2 >90% - low tidal volume ventilation <6cc/kg/IBW - keep Pplat <30 - sedate for vent synchrony - bicarb drip per renal - trend cardiac enzymes, lactate - ECHO - Stress dose steroids - transfuse FFP - PPI - continue ICU monitoring - Overall prognosis for meaningful survival is grave, Palliative care evaluation for GOC. Dr Barba Critical care time spent in reviewing chart, evaluating patient and formulating plan 35 min
[2019-07-16 12:54] LABS: ARTERIAL BLD GAS O2 SATURATION 87.8 % (95-98); ARTERIAL BLOOD GAS BASE EXCESS -19.6 meq/l (-2-2); ARTERIAL BLOOD GAS PCO2 64.3 mmHg (35-45)
[2019-07-16 12:57] LABS: ALLENS TEST POSITIVE; ARTERIAL BLOOD GAS PO2 81.3 mmHg (80-100)
[2019-07-16] MEDS ORDERED: SODIUM CHLORIDE 0.9% 500 ML INFUS.BAG IV ONE ×3 (13:45→23:53)
--- NOTE | 2019-07-16 13:59 | EKG ---
Test Reason : Blood Pressure : / mmHG Vent. Rate : 110 BPM Atrial Rate : 141 BPM P-R Int : 000 ms QRS Dur : 140 ms QT Int : 404 ms P-R-T Axes : 000 -29 125 degrees QTc Int : 546 ms ATRIAL FIBRILLATION WITH RAPID VENTRICULAR RESPONSE NON-SPECIFIC INTRA-VENTRICULAR CONDUCTION BLOCK CANNOT RULE OUT SEPTAL INFARCT (CITED ON OR BEFORE 15-JUL-2019) T WAVE ABNORMALITY, CONSIDER LATERAL ISCHEMIA ABNORMAL ECG WHEN COMPARED WITH ECG OF 15-JUL-2019 20:15, ATRIAL FIBRILLATION HAS REPLACED ATRIAL FLUTTER QRS DURATION HAS INCREASED SERIAL CHANGES OF EVOLVING SEPTAL INFARCT PRESENT Confirmed by WANDER MCDONALD MD ([id number]) on 07/16/2019 1:58:59 PM Referred By: Confirmed By:WANDER MCDONALD MD
--- NOTE | 2019-07-16 14:09 | EKG ---
Test Reason : Blood Pressure : / mmHG Vent. Rate : 148 BPM Atrial Rate : 296 BPM P-R Int : 000 ms QRS Dur : 112 ms QT Int : 302 ms P-R-T Axes : -69 -17 169 degrees QTc Int : 474 ms ATRIAL FLUTTER WITH 2:1 A-V CONDUCTION SEPTAL INFARCT (CITED ON OR BEFORE 15-JUL-2019) INFERIOR INFARCT , AGE UNDETERMINED MARKED ST ABNORMALITY, POSSIBLE LATERAL SUBENDOCARDIAL INJURY ABNORMAL ECG WHEN COMPARED WITH ECG OF 15-JUL-2019 09:28, SIGNIFICANT CHANGES HAVE OCCURRED Confirmed by WANDER MCDONALD MD ([id number]) on 07/16/2019 2:08:52 PM Referred By: Confirmed By:WANDER MCDONALD MD
--- NOTE | 2019-07-16 14:17 | PN ---
Progress Note (short form) - Note Progress Note: Renal follow up for JEFF and metabolic acidosis Seen and examined in the ICU remains on Vent, FiO2 is 100% On max dose Levophed and vaospressin on Bicarb gtt , s/p multiple pushes of bicarb earlier urine output is poor Vital Signs Temperature 96.6 F L 07/16/19 10:00 Pulse Rate 102 H 07/16/19 12:00 Respiratory Rate 29 H 07/16/19 12:12 Blood Pressure 82/58 L 07/16/19 12:00 O2 Sat by Pulse Oximetry (%) 80 L 07/15/19 23:17 Intake & Output 07/13/19 07/14/19 07/15/19 07/16/19 23:59 23:59 23:59 23:59 Intake Total 9894 3365 Output Total 0 1100 70 Balance 0 8794 3295 Weight 81.647 kg 78.925 kg on vent via ET tube tachycardic Dec BS distended abdomen trace edema, + modeling in LE schulte in place with dark urine CBC, BMP 07/16/19 05:40 07/16/19 05:40 Current Medications Acetaminophen (Ofirmev Injection -) 1,000 mg IVPB Q6H PRN PRN Reason: FEVER Last Admin: 07/15/19 13:56 Dose: 1,000 mg Chlorhexidine Gluconate (Hibiclens For Decolonization -) 1 applic TP HS BERTRAM Last Admin: 07/15/19 21:55 Dose: 1 applic Chlorhexidine Gluconate (Peridex -) 15 ml MM BID BERTRAM Hydrocortisone Sodium Succinate (Solu-Cortef -) 50 mg IVPB Q6H-IV BERTRAM Last Admin: 07/16/19 11:17 Dose: 50 mg Metronidazole (Flagyl 500mg Premixed Ivpb -) 500 mg in 100 mls @ 100 mls/hr IVPB Q8H-IV BERTRAM Last Admin: 07/16/19 09:01 Dose: 100 mls/hr Norepinephrine Bitartrate 8, (000 mcg/ Dextrose) 500 mls @ 18.75 mls/hr IV TITR BERTRAM; Protocol Last Titration: 07/16/19 08:05 Dose: 20 mcg/min, 75 mls/hr Fentanyl 500 mcg/ Dextrose 100 mls @ 1 mls/hr IVPB TITR BERTRAM; Protocol Last Titration: 07/16/19 06:37 Dose: 100 mcg/hr, 20 mls/hr Vasopressin 50 units/ Sodium (Chloride) 100 mls @ 24 mls/hr IVPB TITR [facility]; Protocol Last Titration: 07/16/19 08:05 Dose: 0.05 units/min, 6 mls/hr Sodium Bicarbonate 150 meq/ (Dextrose) 1,150 mls @ 100 mls/hr IV Q11H BERTRAM Last Admin: 07/15/19 21:54 Dose: 100 mls/hr Propofol (Diprivan -) 1,000,000 mcg in 100 mls @ 2.368 mls/hr IVPB TITR BERTRAM; Protocol Last Titration: 07/16/19 08:32 Dose: 15 mcg/kg/min, 7.103 mls/hr Amiodarone HCl/Dextrose (Nexterone 360 Mg/200 Ml Bag) 360 mg in 200 mls @ 16.667 mls/hr IVPB TITR BERTRAM; Protocol Last Admin: 07/16/19 04:09 Dose: Not Given Meropenem 500 mg/ Dextrose 100 mls @ 200 mls/hr IVPB Q12H [facility] Mupirocin (Bactroban Ointment (For Decolonization) -) 1 applic NS BID [facility] Stop: 07/20/19 09:59 Last Admin: 07/16/19 11:17 Dose: 1 applic Pantoprazole Sodium (Protonix Iv) 40 mg IVPUSH BID [facility] Last Admin: 07/15/19 21:55 Dose: 40 mg 69 year old woman with history of depression, glaucoma, glucose intolerance who presented from home with altered mental status and found to have sepsis syndrome and septic shock with acute renal injury and metabolic acidosis. Baseline Cr is 0.6 as of 2016. 1. Acute renal injury 2. Anion gap metabolic acidosis/Lactic acidosis 3. Sepsis syndrome/Septic shock 4. Hypovolemic hyponatremia 5. Pseudohypocalcemia 6. Acute Anemia 7. Thrombocytosis 8. Pneumoperitoneum 9. Hyperkalemia in setting of JEFF. Clinically doing very poorly. Urine output is diminished today BUN/Cr unchanged Lactic acidosis persists and pt remains hypotensive despite 2 pressers and IVF pt has mixed respiratory and metabolic acidosis with ARDs picture Will increase bicarb gtt to 200ml per hour continue medical management of hyperkalemia (bicarb, insulin/dextrose) Pt is not a candidate for [employer] given hemodynamic instability and dialysis is unlikely to alter clinical course given severe sepsis Continue vent support Goals of care to be discussed with the family by the ICU today. prognosis is grave. Bay Villanueva DO
--- NOTE | 2019-07-16 14:41 | PN ---
Physical Exam: SUBJECTIVE: Patient seen and examined at bedside in the ICU. Patient is intubated and sedated. OBJECTIVE: Vital Signs Period Temp Pulse Resp BP Sys/James Pulse Ox Last 24 Hr 96.6 F-103.7 F 75-146 23-35 82-200/40-116 80-80 GENERAL: The patient is intubated and sedated. HEAD: Normal with no signs of trauma. EYES: PERRL, sclera anicteric, conjunctiva clear. No ptosis. ENT: Ears normal, nares patent. NECK: Trachea midline, full range of motion, supple. LUNGS: Diffuse rhonchi. Tachypnea. HEART: Tachycardic, irregular rhythm, S1, S2 without murmur, rub or gallop. ABDOMEN: Soft, mildly distended. EXTREMITIES: 2+ pulses, warm, well-perfused, 2+ pitting edema bilaterally. NEUROLOGICAL: Unable to assess. SKIN: Warm, dry, normal turgor. Mottling in the bilateral lower extremities. Laboratory Results - last 24 hr 07/14/19 07/15/19 07/15/19 20:00 13:30 13:30 WBC RBC Hgb Hct MCV MCH MCHC RDW Plt Count MPV Absolute Neuts (auto) Neutrophils % Neutrophils % (Manual) Band Neutrophils % Lymphocytes % Lymphocytes % (Manual) Monocytes % Monocytes % (Manual) Eosinophils % Eosinophils % (Manual) Basophils % Basophils % (Manual) Myelocytes % (Man) Promyelocytes % (Man) Blast Cells % (Manual) Nucleated RBC % Metamyelocytes Platelet Estimate PT with INR INR PTT (Actin FS) Fibrinogen Anticoagulation Therapy Puncture Site ABG pH ABG pCO2 at Pt Temp ABG pO2 at Pt Temp ABG HCO3 ABG O2 Sat (Measured) ABG O2 Content ABG Base Excess Guille Test O2 Delivery Device Oxygen Flow Rate Vent Mode Vent Rate Mechanical Rate PEEP Pressure Support Vent Sodium Potassium Chloride Carbon Dioxide Anion Gap BUN Creatinine Est GFR (CKD-EPI)AfAm Est GFR (CKD-EPI)NonAf Random Glucose Lactic Acid Calcium Phosphorus Magnesium Total Bilirubin AST ALT Alkaline Phosphatase Creatine Kinase Creatine Kinase Index CK-MB (CK-2) Troponin I Total Protein Albumin Urine Osmolality 327 Ur Random Creatinine Ur Random Sodium 48 Random Vancomycin Blood Type O POSITIVE Antibody Screen Negative Crossmatch See Detail 07/15/19 07/15/19 07/15/19 16:20 16:20 22:30 WBC RBC Hgb Hct MCV MCH MCHC RDW Plt Count MPV Absolute Neuts (auto) Neutrophils % Neutrophils % (Manual) Band Neutrophils % Lymphocytes % Lymphocytes % (Manual) Monocytes % Monocytes % (Manual) Eosinophils % Eosinophils % (Manual) Basophils % Basophils % (Manual) Myelocytes % (Man) Promyelocytes % (Man) Blast Cells % (Manual) Nucleated RBC % Metamyelocytes Platelet Estimate PT with INR INR PTT (Actin FS) Fibrinogen Anticoagulation Therapy No Result Required. Puncture Site Left brachial ABG pH 7.06 L* ABG pCO2 at Pt Temp 56.2 H ABG pO2 at Pt Temp < 49 L* ABG HCO3 15.0 L ABG O2 Sat (Measured) 62.5 L ABG O2 Content No Result Required. ABG Base Excess -13.7 L Guille Test No Result Required. O2 Delivery Device No Result Required. Oxygen Flow Rate No Result Required. Vent Mode No Result Required. Vent Rate 24 Mechanical Rate No Result Required. PEEP 10.0 Pressure Support Vent No Result Required. Sodium 135 L Potassium 4.5 Chloride 98 Carbon Dioxide 19 L Anion Gap 18 H BUN 77.7 H Creatinine 2.6 H Est GFR (CKD-EPI)AfAm 20.68 Est GFR (CKD-EPI)NonAf 17.84 Random Glucose 208 H Lactic Acid 6.0 H* Calcium 5.4 L* Phosphorus Magnesium Total Bilirubin 2.3 H AST 552 H ALT 90 H Alkaline Phosphatase 120 H Creatine Kinase 3344 H Creatine Kinase Index 3.2 CK-MB (CK-2) 108.2 H Troponin I 0.62 H* Total Protein 4.0 L Albumin 1.2 L Urine Osmolality Ur Random Creatinine Ur Random Sodium Random Vancomycin Blood Type Antibody Screen Crossmatch 07/16/19 07/16/19 07/16/19 02:30 02:30 02:30 WBC RBC Hgb Hct MCV MCH MCHC RDW Plt Count MPV Absolute Neuts (auto) Neutrophils % Neutrophils % (Manual) Band Neutrophils % Lymphocytes % Lymphocytes % (Manual) Monocytes % Monocytes % (Manual) Eosinophils % Eosinophils % (Manual) Basophils % Basophils % (Manual) Myelocytes % (Man) Promyelocytes % (Man) Blast Cells % (Manual) Nucleated RBC % Metamyelocytes Platelet Estimate PT with INR INR PTT (Actin FS) Fibrinogen Anticoagulation Therapy Puncture Site ABG pH ABG pCO2 at Pt Temp ABG pO2 at Pt Temp ABG HCO3 ABG O2 Sat (Measured) ABG O2 Content ABG Base Excess Guille Test O2 Delivery Device Oxygen Flow Rate Vent Mode Vent Rate Mechanical Rate PEEP Pressure Support Vent Sodium Potassium Chloride Carbon Dioxide Anion Gap BUN Creatinine Est GFR (CKD-EPI)AfAm Est GFR (CKD-EPI)NonAf Random Glucose Lactic Acid 13.3 H* Calcium Phosphorus Magnesium Total Bilirubin AST ALT Alkaline Phosphatase Creatine Kinase Creatine Kinase Index CK-MB (CK-2) Troponin I 0.68 H* Total Protein Albumin Urine Osmolality Ur Random Creatinine 25.0 L Ur Random Sodium Random Vancomycin Blood Type Antibody Screen Crossmatch 07/16/19 07/16/19 07/16/19 05:40 05:40 05:40 WBC 30.2 H* RBC 3.17 L Hgb 7.2 L Hct 24.8 L MCV 78.2 L MCH 22.7 L MCHC 29.0 L RDW 21.6 H Plt Count 281 D MPV 8.3 Absolute Neuts (auto) 27.5 H Neutrophils % 91.0 H Neutrophils % (Manual) 63.1 Band Neutrophils % 16.8 Lymphocytes % 7.0 L Lymphocytes % (Manual) 3.2 L D Monocytes % 0.9 L Monocytes % (Manual) 3 L Eosinophils % 0.8 Eosinophils % (Manual) 0.0 D Basophils % 0.3 Basophils % (Manual) 0.0 Myelocytes % (Man) 3 H D Promyelocytes % (Man) 1 Blast Cells % (Manual) 0 Nucleated RBC % 1 H Metamyelocytes 10 H D Platelet Estimate Normal PT with INR INR PTT (Actin FS) Fibrinogen Anticoagulation Therapy Puncture Site ABG pH ABG pCO2 at Pt Temp ABG pO2 at Pt Temp ABG HCO3 ABG O2 Sat (Measured) ABG O2 Content ABG Base Excess Guille Test O2 Delivery Device Oxygen Flow Rate Vent Mode Vent Rate Mechanical Rate PEEP Pressure Support Vent Sodium 126 L Potassium 6.0 H Chloride 88 L Carbon Dioxide 12 L Anion Gap 26 H BUN 75.4 H Creatinine 2.6 H Est GFR (CKD-EPI)AfAm 20.68 Est GFR (CKD-EPI)NonAf 17.84 Random Glucose 354 H Lactic Acid Calcium 7.8 L Phosphorus Magnesium 2.9 H Total Bilirubin 2.4 H AST 603 H ALT 103 H Alkaline Phosphatase 141 H Creatine Kinase Creatine Kinase Index CK-MB (CK-2) Troponin I Total Protein 4.1 L Albumin 1.2 L Urine Osmolality Ur Random Creatinine Ur Random Sodium Random Vancomycin 18.5 Blood Type Antibody Screen Crossmatch 07/16/19 07/16/19 07/16/19 05:40 05:40 05:40 WBC RBC Hgb Hct MCV MCH MCHC RDW Plt Count MPV Absolute Neuts (auto) Neutrophils % Neutrophils % (Manual) Band Neutrophils % Lymphocytes % Lymphocytes % (Manual) Monocytes % Monocytes % (Manual) Eosinophils % Eosinophils % (Manual) Basophils % Basophils % (Manual) Myelocytes % (Man) Promyelocytes % (Man) Blast Cells % (Manual) Nucleated RBC % Metamyelocytes Platelet Estimate PT with INR 19.50 H INR 1.64 H PTT (Actin FS) 47.6 H Fibrinogen 375.0 Anticoagulation Therapy Puncture Site ABG pH ABG pCO2 at Pt Temp ABG pO2 at Pt Temp ABG HCO3 ABG O2 Sat (Measured) ABG O2 Content ABG Base Excess Guille Test O2 Delivery Device Oxygen Flow Rate Vent Mode Vent Rate Mechanical Rate PEEP Pressure Support Vent Sodium Potassium Chloride Carbon Dioxide Anion Gap BUN Creatinine Est GFR (CKD-EPI)AfAm Est GFR (CKD-EPI)NonAf Random Glucose Lactic Acid Calcium Phosphorus 13.0 H* Magnesium Total Bilirubin AST ALT Alkaline Phosphatase Creatine Kinase Creatine Kinase Index CK-MB (CK-2) Troponin I Total Protein Albumin Urine Osmolality Ur Random Creatinine Ur Random Sodium Random Vancomycin Blood Type Antibody Screen Crossmatch 07/16/19 07/16/19 07/16/19 05:40 05:40 06:36 WBC RBC Hgb Hct MCV MCH MCHC RDW Plt Count MPV Absolute Neuts (auto) Neutrophils % Neutrophils % (Manual) Band Neutrophils % Lymphocytes % Lymphocytes % (Manual) Monocytes % Monocytes % (Manual) Eosinophils % Eosinophils % (Manual) Basophils % Basophils % (Manual) Myelocytes % (Man) Promyelocytes % (Man) Blast Cells % (Manual) Nucleated RBC % Metamyelocytes Platelet Estimate PT with INR INR PTT (Actin FS) Fibrinogen Anticoagulation Therapy No Result Required. Puncture Site Right brachial ABG pH 6.88 L* ABG pCO2 at Pt Temp 55.2 H ABG pO2 at Pt Temp 107 H ABG HCO3 9.7 L ABG O2 Sat (Measured) 92.5 L ABG O2 Content 92.5 ABG Base Excess -21.9 L Guille Test Not applicable O2 Delivery Device No Result Required. Oxygen Flow Rate Vent Vent Mode A/c Vent Rate 26 Mechanical Rate Yes PEEP 12.0 Pressure Support Vent 350 Sodium Potassium Chloride Carbon Dioxide Anion Gap BUN Creatinine Est GFR (CKD-EPI)AfAm Est GFR (CKD-EPI)NonAf Random Glucose Lactic Acid 14.6 H* Calcium Phosphorus Magnesium Total Bilirubin AST ALT Alkaline Phosphatase Creatine Kinase Creatine Kinase Index CK-MB (CK-2) Troponin I 0.64 H* Total Protein Albumin Urine Osmolality Ur Random Creatinine Ur Random Sodium Random Vancomycin Blood Type Antibody Screen Crossmatch 07/16/19 07/16/19 12:40 12:52 WBC RBC Hgb Hct MCV MCH MCHC RDW Plt Count MPV Absolute Neuts (auto) Neutrophils % Neutrophils % (Manual) Band Neutrophils % Lymphocytes % Lymphocytes % (Manual) Monocytes % Monocytes % (Manual) Eosinophils % Eosinophils % (Manual) Basophils % Basophils % (Manual) Myelocytes % (Man) Promyelocytes % (Man) Blast Cells % (Manual) Nucleated RBC % Metamyelocytes Platelet Estimate PT with INR INR PTT (Actin FS) Fibrinogen Anticoagulation Therapy No Result Required. Puncture Site Right brachial ABG pH 6.90 L* ABG pCO2 at Pt Temp 64.3 H ABG pO2 at Pt Temp 81.3 ABG HCO3 11.9 L ABG O2 Sat (Measured) 87.8 L ABG O2 Content No Result Required. ABG Base Excess -19.6 L Guille Test Positive O2 Delivery Device Mec vent Oxygen Flow Rate 100 Vent Mode A/c Vent Rate 26 Mechanical Rate No Result Required. PEEP 12.0 Pressure Support Vent 350 Sodium Potassium Chloride Carbon Dioxide Anion Gap BUN Creatinine Est GFR (CKD-EPI)AfAm Est GFR (CKD-EPI)NonAf Random Glucose Lactic Acid 16.7 H* Calcium Phosphorus Magnesium Total Bilirubin AST ALT Alkaline Phosphatase Creatine Kinase Creatine Kinase Index CK-MB (CK-2) Troponin I Total Protein Albumin Urine Osmolality Ur Random Creatinine Ur Random Sodium Random Vancomycin Blood Type Antibody Screen Crossmatch Active Medications Generic Name Dose Route Start Last Admin Trade Name Freq PRN Reason Stop Dose Admin Acetaminophen 1,000 mg 07/15/19 13:10 07/15/19 13:56 Ofirmev Injection - IVPB 1,000 mg Q6H PRN Administration FEVER Chlorhexidine Gluconate 1 applic 07/15/19 22:00 07/15/19 21:55 Hibiclens For Decolonization - TP 1 applic HS BERTRAM Administration Chlorhexidine Gluconate 15 ml 07/16/19 22:00 Peridex - MM BID BERTRAM Hydrocortisone Sodium Succinate 50 mg 07/16/19 09:45 07/16/19 11:17 Solu-Cortef - IVPB 50 mg Q6H-IV BERTRAM Administration Metronidazole 500 mg in 100 mls @ 100 mls/hr 07/15/19 02:00 07/16/19 09:01 Flagyl 500mg Premixed Ivpb - IVPB 100 mls/hr Q8H-IV BERTRAM Administration Norepinephrine Bitartrate 8, 500 mls @ 18.75 mls/hr 07/15/19 02:15 07/16/19 08:05 000 mcg/ Dextrose IV 20 mcg/min TITR BERTRAM 75 mls/hr Titration Protocol 5 MCG/MIN Fentanyl 500 mcg/ Dextrose 100 mls @ 1 mls/hr 07/15/19 04:30 07/16/19 06:37 IVPB 100 mcg/hr TITR BERTRAM 20 mls/hr Titration Protocol 5 MCG/HR Vasopressin 50 units/ Sodium 100 mls @ 24 mls/hr 07/15/19 04:30 07/16/19 08: 05 Chloride IVPB 0.05 units/min TITR BER[facility]AM 6 mls/hr Titration Protocol 0.2 UNITS/MIN Sodium Bicarbonate 150 meq/ 1,150 mls @ 100 mls/hr 07/15/19 10:00 07/15/19 21 :54 Dextrose IV 100 mls/hr Q11H BER[facility]AM Administration Propofol 1,000,000 mcg in 100 mls @ 2.368 mls/hr 07/15/19 11:45 07/16/19 08: 32 Diprivan - IVPB 15 mcg/kg/min TITR [facility] 7.103 mls/hr Titration Protocol 5 MCG/KG/MIN Amiodarone HCl/Dextrose 360 mg in 200 mls @ 16.667 mls/hr 07/16/19 02:41 04:09 Nexterone 360 Mg/200 Ml Bag IVPB Not Given TITR [facility] Protocol 0.5 MG/MIN Meropenem 500 mg/ Dextrose 100 mls @ 200 mls/hr 07/16/19 22:00 IVPB Q12H [facility] Mupirocin 1 applic 07/15/19 10:00 07/16/19 11:17 Bactroban Ointment (For Decolonization) - NS 07/20/19 09:59 1 applic BID [facility]ER[facility]AM Administration Pantoprazole Sodium 40 mg 07/15/19 22:00 07/15/19 21:55 Protonix Iv IVPUSH 40 mg BID [facility]ER[facility]AM Administration Sodium Bicarbonate 50 meq 07/16/19 14:37 Sodium Bicarbonate 8.4% - IVPUSH 07/16/19 14:38 ONCE ONE Sodium Bicarbonate 50 meq 07/16/19 14:38 Sodium Bicarbonate 8.4% - IVPUSH 07/16/19 14:39 ONCE ONE Sodium Bicarbonate 50 meq 07/16/19 14:38 Sodium Bicarbonate 8.4% - IVPUSH 07/16/19 14:39 ONCE ONE ASSESSMENT/PLAN: 69 year old female with no pcp, presented to ED with altered mental status and coffee ground emesis was found to be septic and admitted to ICU for close monitoring # ID -> Septic shock 2/2 SBO perforation/aspiration PNA/Legionella -wbc 30.2 , LA 10 initially and will continue to trend after hydration. Lactate most recent is 16.7 -smith cx , blood , Urine and sputum, blood cx growing gram positive cocci so will add 1 dose of vanco renally dosed ofr mrsa coverage, ID made aware. -c/w meropenem, and flagyl. -follow official read for CT head , chest abdomen , pelvic -Aspiration precautions, head of bed elevation, OGT -surgery was consulted Dr Paredes and did not recommended intervention till pt is hemodynamicaly stable. -UA legionella sent given triad of abdominal pain, hyponatremia, and fever with leukocytosis. -d/c serial lactic acid, will continue to monitor with ABG Neuro -> Acutemetabolic encephalopathy -Intubated, sedated on max dose of prop, fentanyl, phenylephrine -confused due to sepsis -CT head negative # cardio -> AFIB initially/Demand ischemia induced troponinemia - troponinemia is being continued to trend and has gone up most likely due to demand ischemia from sepsis. -AFIB by EMS S/p Cardizem 25 per ED and pt went in oralia cardia to 30 - continue tele monitoring for any signs of AF. Pulmonary-> /Acute hypoxemic Respiratory failure - Aspiration PNA bibasilar and right middle lobe , cont abx - on levo 20, vaso 3 units - sedation propfol @ 30 mcg/min, 100 of fentanyl -IV fluids bolus and maintenance -maintain BP MAP> 65 - intubated, vent settings adjusted according to ARDSnet : TV 400 -> 350, RR 24 -> 26, FiO2 100, PEEP 10 -> 12 - will have low threshold to add a paralytic agent if pt not able to maintain oxygenation and pt RR is asynchronous with the vent. - Chest CT showing pneumoperitoneum suspicious for ruptured viscus. The site of perforation is uncertain but may be within the pelvis where a large complex mass involves the sigmoid colon and possibly small bowel loops. Extensive pulmonary consolidation involving the right middle and lower lobes, as well as the left lower lobe. This is consistent with acute pneumonia. Moderate ascites. Moderate retroperitoneal lymphadenopathy. GI -> coffee ground emesis r/o Upper GI bleed/acute vs chronic liver dx - Ascitis - liver cirrhosis ?? - gallbladder sludge and presented with ? coffee ground emesis that has now resolved - 2 large IV bores to maintain adequate fluid resuscitation - Monitor H/H Q 6 hr - INR 3, unsure how long pt has had this liver disease as pt has not sought medical attention in long time. - Meld score of 34 and Child hudson class C showing significantly decreased mortality for this patient if indeed this is not just an acute rxn from the sepsis. - normal transfusion threshold below 7 unless is actively bleeding PPI 40 IV BID per GI recs (Dr. Rashid). - avoiding NSAIDS - send C diff was on Motrin OTC for pain CT abdomen with SBO and perforation and mild ascitis, surgery does not want to intervene at this time given its futility, believed to be due to possible ulcer but unsure of cause at this time. NPO , OGT set to suction Nephrology -> JEFF 2/2 Rhabdomyolysis/High AG met acidosis/hypovolemic hyponatremia - JEFF BUN /Cr 75.4/3.6 unkown base line, likely due to dehydration - Renal US pending - ABG showing metabolic acidosis, AG is 20 so its high AG met acidosis likely 2/ 2 lactic acidosis from septic shock. - Bicarb gtt initiated and boluses of bicarb have been given due to repeat ABG showing decrease in Bicarb despite the gtt, will continue to monitor with rpt abg's and will monitor pt's Ca while on drip. - Vent settings adjusted to help compensate respiratory valadez for the met acidosis. - UTI UA positive LE + Nitrit, will cont abx - High anion gap metabolic acidosis 2/2 to lactic acidosis from sepsis - ABG pH 6.88 on rpt, have 2 boluses of HCO3. - Hypovolemic hyponatremic NA 126, cont IV fluids , urine osmo, blood osmolality #Heme-> microcytic hypochromic anemia due to malnourished and blood loss - 1prbc given and 2 ffp and 1 vitamin K given yesterday Endo -hydrocortisone decreased to 50 mg q6h # JOSEI * ORIGINALLY placed on 250cc/hr NS but was d/c and will be giving 500cc boluses of NS to maintain CVP >8. * Monitor lytes and replete as seen * NPO Prophylaxis: * dVTs proph: scds , no chemical prophylaxis in term of bleeding * GI proph : PPI Drip Dispo: Continue ICU care. Code Status: Patient is full code. Extensive discussion with son who is next of kin and patient's sister (only sibling) in the unit in conjunction with palliative care. States that the patient has expressed her desire to remain full code. Visit type - Emergency Visit Emergency Visit: Yes ED Registration Date: 07/14/19 Care time: The patient presented to the Emergency Department on the above date and was hospitalized for further evaluation of their emergent condition. - New Patient This patient is new to me today: No - Critical Care Critical Care patient: Yes Total Critical Care Time (in minutes): 35 Critical Care Statement: The care of this patient involved high complexity decision making to prevent further life threatening deterioration of the patient 's condition and/or to evaluate & treat vital organ system(s) failure or risk of failure. ATTENDING PHYSICIAN STATEMENT I saw and evaluated the patient. I reviewed the resident's note and discussed the case with the resident. I agree with the resident's findings and plan as documented. SUBJECTIVE: OBJECTIVE: ASSESSMENT AND PLAN:
[2019-07-16] MEDS: SODIUM BICARBONATE 8.4% - 150 MEQ in DEXTROSE 5%-WATER - 1,000 ML IV SCH ×2 (15:11→20:58)
[2019-07-16] MEDS: PROPOFOL 1,000,000 MCG/100 ML VIAL IVPB SCH (15:12)
[2019-07-16] MEDS: PANTOPRAZOLE SODIUM 40 MG VIAL IVPUSH SCH ×2 (15:12→21:19)
[2019-07-16] MEDS ORDERED: PHYTONADIONE 10 MG/1 ML AMP ONE (17:11)
[2019-07-16] MEDS: PHENYLEPHRINE HCL 20,000 MCG in SODIUM CHLORIDE 248 ML IVPB SCH ×2 (17:25→22:29)
--- NOTE | 2019-07-16 17:29 | PN ---
Progress Note (short form) - Note Progress Note: Attending Surgeon Patient seen in f/u; remains intubated and sedated on vent on pressors and IVAB' s Last Vital Signs Temp Pulse Resp BP Pulse Ox 97.6 F 102 H 26 H 82/58 L 80 L 07/16/19 14:35 07/16/19 14:35 07/16/19 15:28 07/16/19 12:00 07/15/19 23:17 [place] previously stated; Palliative Care Note revi abdo-softly distended labs noted ICU notes reviewed. IMP:MOSF secondary to perforated viscus PLAN: Continue same care as per ICU; again patient is not a candidate for surgery at this time; Palliative Care Note reviewed. George Paredes MD FACS
--- NOTE | 2019-07-16 17:57 | PN ---
Progress Note (short form) - Note Progress Note: intubated on multiple pressors mottled minimal urine output Vital Signs Period Temp Pulse Resp BP Sys/James Pulse Ox Last 24 Hr 96.6 F-102.6 F 75-146 23-30 72-200/39-116 80-80 cor-rrr lungs decreased bs at bases abd firm, distended, no bowel sounds ext mottled, chin mottled as well as abdomen CBC, BMP 07/16/19 05:40 07/16/19 05:40 Laboratory Tests lactic acid 16.7 Microbiology 07/16/19 02:30 Sputum - Endotrachea Suction/Ventilator Gram Stain - Final 07/16/19 02:30 Urine - Urine Booker Legionella Antigen - Final 07/16/19 02:30 Urine - Urine Booker Streptococcus pneumoniae Antigen (M - Final 07/14/19 20:00 Urine - Urine Clean Catch Urine Culture - Final NO GROWTH OBTAINED 07/14/19 20:00 Blood - Peripheral Venous Blood Culture - Preliminary Lactose Fermenting Neg Bacilli Staphylococcus Coagulase Neg 07/14/19 20:00 Blood - Peripheral Venous Blood Culture - Preliminary Pending Organism meds reviewed imp/reccd severe sepsis with multiorgan failure -intubated in renal failure polymicrobial bacteremia with probable anaerobe c/w GI source pneumoperitoneum pneumonia- most likely aspiration coagulopathy possible malignancy ?cirrhosis coffee grounds in NGT pen allergy d/w son at bedside at length d/w nurse at bedside he has been spoken to by multiple members of the medical team continue antibiotics overall prognosis is grim over 40 minutes spent in the care of this critically ill ICU patient Problem List - Problems (1) Severe sepsis Code(s): A41.9 - SEPSIS, UNSPECIFIED ORGANISM; R65.20 - SEVERE SEPSIS WITHOUT SEPTIC SHOCK
--- NOTE | 2019-07-16 18:19 | PN ---
Teaching Attending Note Name of Resident: Cheikh Eagle ATTENDING PHYSICIAN STATEMENT I saw and evaluated the patient. I reviewed the resident's note and discussed the case with the resident. I agree with the resident's findings and plan as documented with exceptions below. SUBJECTIVE: patient seen and examined, intubated, sedated. OBJECTIVE: Vital Signs Period Temp Pulse Resp BP Sys/James Pulse Ox Last 24 Hr 96.6 F-99.9 F 75-146 23-29 72-200/39-116 80-80 Intake & Output 07/13/19 07/14/19 07/15/19 07/16/19 23:59 23:59 23:59 23:59 Intake Total 9894 3365 Output Total 0 1100 70 Balance 0 8794 3295 Weight 180 lb 174 lb general: intubated, sedated, breathing over the vent HEENT: vanessa-oral cyanosis Chest: poor rales, coarse rhonchi Abdomen: distended, soft, hypoactive bowel sounds Extremiteis: pos edema, mottled CVS: S1S2 regular, tachycardic Laboratory Results - last 24 hr 07/14/19 07/15/19 07/16/19 20:00 22:30 02:30 WBC RBC Hgb Hct MCV MCH MCHC RDW Plt Count MPV Absolute Neuts (auto) Neutrophils % Neutrophils % (Manual) Band Neutrophils % Lymphocytes % Lymphocytes % (Manual) Monocytes % Monocytes % (Manual) Eosinophils % Eosinophils % (Manual) Basophils % Basophils % (Manual) Myelocytes % (Man) Promyelocytes % (Man) Blast Cells % (Manual) Nucleated RBC % Metamyelocytes Platelet Estimate PT with INR INR PTT (Actin FS) Fibrinogen Anticoagulation Therapy No Result Required. Puncture Site Left brachial ABG pH 7.06 L* ABG pCO2 at Pt Temp 56.2 H ABG pO2 at Pt Temp < 49 L* ABG HCO3 15.0 L ABG O2 Sat (Measured) 62.5 L ABG O2 Content No Result Required. ABG Base Excess -13.7 L Guille Test No Result Required. O2 Delivery Device No Result Required. Oxygen Flow Rate No Result Required. Vent Mode No Result Required. Vent Rate 24 Mechanical Rate No Result Required. PEEP 10.0 Pressure Support Vent No Result Required. Sodium Potassium Chloride Carbon Dioxide Anion Gap BUN Creatinine Est GFR (CKD-EPI)AfAm Est GFR (CKD-EPI)NonAf Random Glucose Lactic Acid 13.3 H* Calcium Phosphorus Magnesium Total Bilirubin AST ALT Alkaline Phosphatase Troponin I Total Protein Albumin Ur Random Creatinine Random Vancomycin Blood Type O POSITIVE Antibody Screen Negative Crossmatch See Detail 07/16/19 07/16/19 07/16/19 02:30 02:30 05:40 WBC RBC Hgb Hct MCV MCH MCHC RDW Plt Count MPV Absolute Neuts (auto) Neutrophils % Neutrophils % (Manual) Band Neutrophils % Lymphocytes % Lymphocytes % (Manual) Monocytes % Monocytes % (Manual) Eosinophils % Eosinophils % (Manual) Basophils % Basophils % (Manual) Myelocytes % (Man) Promyelocytes % (Man) Blast Cells % (Manual) Nucleated RBC % Metamyelocytes Platelet Estimate PT with INR INR PTT (Actin FS) Fibrinogen Anticoagulation Therapy Puncture Site ABG pH ABG pCO2 at Pt Temp ABG pO2 at Pt Temp ABG HCO3 ABG O2 Sat (Measured) ABG O2 Content ABG Base Excess Guille Test O2 Delivery Device Oxygen Flow Rate Vent Mode Vent Rate Mechanical Rate PEEP Pressure Support Vent Sodium Potassium Chloride Carbon Dioxide Anion Gap BUN Creatinine Est GFR (CKD-EPI)AfAm Est GFR (CKD-EPI)NonAf Random Glucose Lactic Acid Calcium Phosphorus Magnesium Total Bilirubin AST ALT Alkaline Phosphatase Troponin I 0.68 H* Total Protein Albumin Ur Random Creatinine 25.0 L Random Vancomycin 18.5 Blood Type Antibody Screen Crossmatch 07/16/19 07/16/19 07/16/19 05:40 05:40 05:40 WBC 30.2 H* RBC 3.17 L Hgb 7.2 L Hct 24.8 L MCV 78.2 L MCH 22.7 L MCHC 29.0 L RDW 21.6 H Plt Count 281 D MPV 8.3 Absolute Neuts (auto) 27.5 H Neutrophils % 91.0 H Neutrophils % (Manual) 63.1 Band Neutrophils % 16.8 Lymphocytes % 7.0 L Lymphocytes % (Manual) 3.2 L D Monocytes % 0.9 L Monocytes % (Manual) 3 L Eosinophils % 0.8 Eosinophils % (Manual) 0.0 D Basophils % 0.3 Basophils % (Manual) 0.0 Myelocytes % (Man) 3 H D Promyelocytes % (Man) 1 Blast Cells % (Manual) 0 Nucleated RBC % 1 H Metamyelocytes 10 H D Platelet Estimate Normal PT with INR INR PTT (Actin FS) Fibrinogen Anticoagulation Therapy Puncture Site ABG pH ABG pCO2 at Pt Temp ABG pO2 at Pt Temp ABG HCO3 ABG O2 Sat (Measured) ABG O2 Content ABG Base Excess Guille Test O2 Delivery Device Oxygen Flow Rate Vent Mode Vent Rate Mechanical Rate PEEP Pressure Support Vent Sodium 126 L Potassium 6.0 H Chloride 88 L Carbon Dioxide 12 L Anion Gap 26 H BUN 75.4 H Creatinine 2.6 H Est GFR (CKD-EPI)AfAm 20.68 Est GFR (CKD-EPI)NonAf 17.84 Random Glucose 354 H Lactic Acid Calcium 7.8 L Phosphorus 13.0 H* Magnesium 2.9 H Total Bilirubin 2.4 H AST 603 H ALT 103 H Alkaline Phosphatase 141 H Troponin I Total Protein 4.1 L Albumin 1.2 L Ur Random Creatinine Random Vancomycin Blood Type Antibody Screen Crossmatch 07/16/19 07/16/19 07/16/19 05:40 05:40 05:40 WBC RBC Hgb Hct MCV MCH MCHC RDW Plt Count MPV Absolute Neuts (auto) Neutrophils % Neutrophils % (Manual) Band Neutrophils % Lymphocytes % Lymphocytes % (Manual) Monocytes % Monocytes % (Manual) Eosinophils % Eosinophils % (Manual) Basophils % Basophils % (Manual) Myelocytes % (Man) Promyelocytes % (Man) Blast Cells % (Manual) Nucleated RBC % Metamyelocytes Platelet Estimate PT with INR 19.50 H INR 1.64 H PTT (Actin FS) 47.6 H Fibrinogen 375.0 Anticoagulation Therapy Puncture Site ABG pH ABG pCO2 at Pt Temp ABG pO2 at Pt Temp ABG HCO3 ABG O2 Sat (Measured) ABG O2 Content ABG Base Excess Guille Test O2 Delivery Device Oxygen Flow Rate Vent Mode Vent Rate Mechanical Rate PEEP Pressure Support Vent Sodium Potassium Chloride Carbon Dioxide Anion Gap BUN Creatinine Est GFR (CKD-EPI)AfAm Est GFR (CKD-EPI)NonAf Random Glucose Lactic Acid 14.6 H* Calcium Phosphorus Magnesium Total Bilirubin AST ALT Alkaline Phosphatase Troponin I Total Protein Albumin Ur Random Creatinine Random Vancomycin Blood Type Antibody Screen Crossmatch 07/16/19 07/16/19 07/16/19 05:40 06:36 12:40 WBC RBC Hgb Hct MCV MCH MCHC RDW Plt Count MPV Absolute Neuts (auto) Neutrophils % Neutrophils % (Manual) Band Neutrophils % Lymphocytes % Lymphocytes % (Manual) Monocytes % Monocytes % (Manual) Eosinophils % Eosinophils % (Manual) Basophils % Basophils % (Manual) Myelocytes % (Man) Promyelocytes % (Man) Blast Cells % (Manual) Nucleated RBC % Metamyelocytes Platelet Estimate PT with INR INR PTT (Actin FS) Fibrinogen Anticoagulation Therapy No Result Required. No Result Required. Puncture Site Right brachial Right brachial ABG pH 6.88 L* 6.90 L* ABG pCO2 at Pt Temp 55.2 H 64.3 H ABG pO2 at Pt Temp 107 H 81.3 ABG HCO3 9.7 L 11.9 L ABG O2 Sat (Measured) 92.5 L 87.8 L ABG O2 Content 92.5 No Result Required. ABG Base Excess -21.9 L -19.6 L Guille Test Not applicable Positive O2 Delivery Device No Result Required. Mec vent Oxygen Flow Rate Vent 100 Vent Mode A/c A/c Vent Rate 26 26 Mechanical Rate Yes No Result Required. PEEP 12.0 12.0 Pressure Support Vent 350 350 Sodium Potassium Chloride Carbon Dioxide Anion Gap BUN Creatinine Est GFR (CKD-EPI)AfAm Est GFR (CKD-EPI)NonAf Random Glucose Lactic Acid Calcium Phosphorus Magnesium Total Bilirubin AST ALT Alkaline Phosphatase Troponin I 0.64 H* Total Protein Albumin Ur Random Creatinine Random Vancomycin Blood Type Antibody Screen Crossmatch 07/16/19 12:52 WBC RBC Hgb Hct MCV MCH MCHC RDW Plt Count MPV Absolute Neuts (auto) Neutrophils % Neutrophils % (Manual) Band Neutrophils % Lymphocytes % Lymphocytes % (Manual) Monocytes % Monocytes % (Manual) Eosinophils % Eosinophils % (Manual) Basophils % Basophils % (Manual) Myelocytes % (Man) Promyelocytes % (Man) Blast Cells % (Manual) Nucleated RBC % Metamyelocytes Platelet Estimate PT with INR INR PTT (Actin FS) Fibrinogen Anticoagulation Therapy Puncture Site ABG pH ABG pCO2 at Pt Temp ABG pO2 at Pt Temp ABG HCO3 ABG O2 Sat (Measured) ABG O2 Content ABG Base Excess Guille Test O2 Delivery Device Oxygen Flow Rate Vent Mode Vent Rate Mechanical Rate PEEP Pressure Support Vent Sodium Potassium Chloride Carbon Dioxide Anion Gap BUN Creatinine Est GFR (CKD-EPI)AfAm Est GFR (CKD-EPI)NonAf Random Glucose Lactic Acid 16.7 H* Calcium Phosphorus Magnesium Total Bilirubin AST ALT Alkaline Phosphatase Troponin I Total Protein Albumin Ur Random Creatinine Random Vancomycin Blood Type Antibody Screen Crossmatch Microbiology 07/16/19 02:30 Sputum - Endotrachea Suction/Ventilator Gram Stain - Final 07/16/19 02:30 Urine - Urine Booker Legionella Antigen - Final 07/16/19 02:30 Urine - Urine Booker Streptococcus pneumoniae Antigen (M - Final 07/14/19 20:00 Urine - Urine Clean Catch Urine Culture - Final NO GROWTH OBTAINED 07/14/19 20:00 Blood - Peripheral Venous Blood Culture - Preliminary Lactose Fermenting Neg Bacilli Staphylococcus Coagulase Neg 07/14/19 20:00 Blood - Peripheral Venous Blood Culture - Preliminary Pending Organism A69 yof with found down on floor, admitted with septic shock, multiple organ failure, pneumoperitoneum with perforated viscous, pneumonia, likely aspiration. Acute Hypoxic Respiratory Failure Pneumoperitoneum/ r/o Perforated Viscous Pneumonia ARDS Septic Shock Lactic Acidosis Acute Kidney Injury +Troponins likely Demand Ischemia Hyponatremia Elevated LFTs likely Ischemic Injury r/o GI Bleed Coagulopathy r/o Pelvic Mass Anemia Thrombocytosis Possible liver cirrhosis Plan: Vent management/Sedation/pressors per ICU. On Bicarb drip per renal. ID input noted, meropenem/flagyl Surgery input noted, GI input noted. Trend cardiac enzymes. 2D echo. Lactate Stress dose steroids FFP Protonix ICU monitoring Overall prognosis for meaningful survival grave. Discussed with nursing. Critical Care Total Critical Care Time (in minutes): 36 Critical Care Statement: The care of this patient involved high complexity decision making to prevent further life threatening deterioration of the patient 's condition and/or to evaluate & treat vital organ system(s) failure or risk of failure.
[2019-07-16] MEDS ORDERED: PHENYLEPHRINE HCL 10 MG/1 ML SINGLE DOSE VIAL ONE ×2 (19:24→19:30)
[2019-07-16] MEDS ORDERED: VASOPRESSIN 20 UNITS/ML VIAL IV ONE (19:30)
--- NOTE | 2019-07-16 20:20 | PN ---
Progress Note (short form) - Note Progress Note: HPI: Overnight events noted. Pt remains intubated and sedated with 100% FiO2. Norepi and Vasopressin remain on board (/ respectively). PE: Gen: Intubated and sedated with Fentanyl only HEENT: NC/AT, sluggishly reactive pupils without responsive to threat or painful stimuli, gag reflex +, dry mucosa noted, OG with notable bloodtinged gastric contents. NECK: R IJ C/D/I, no JVD LUNGS: Crackles noted throughout. AC mode of vent CARDIAC: Irregularly irregular and tachycardic to 117's. No overt murmurs appreciated ABD: Tensely distended without any Duffy/Rich's signs. No bowel sounds. Tenderness unable to be assessed. No skin changes or caput medusa noted EXT: No edema, cool, pulses weak, but intact b/l SKIN: No skin breakdown appreciated, mottling appreciated A/P Acute hypoxic respiratory failure Septic shock 2/2 to perforated bowel ARDS High anion gap metabolic acidosis 2/2 Lactic Acidosis Acute blood loss anemia Demand ischemia Ischemic liver injury Hyponatremia Neuro: Continue to assess mentation Pt without meaningful movements with only Fentanyl Likely will have to paralyze + propofol sedation if diaphragmatic decompensation occurs Noncontrast head CT reviewed Pulm: ARDS vent settings to be adjusted by ICU team --Monitor Ppl Empiric aspiration pneumonitis abx per ID Aspiration precautions: HOB elevation and routine care Cardiac: Levophed 25 and Vasopressin 4U/hr noted --Continue hydrocortisone for pressor refractory shock per ICU team --Cannot use Fludro in this case due to perforated viscus CVP monitoring: goal 4-6 given ARDS management Demand ischemia given clinical condition; trend Trop GI: Surgery not indicated in this patient due to tenuous status and high pressor requirements Monitor Hgb with normal transfusion thresholds FFP ordered Monitor NG output Monitor LFTs and avoid hepatotoxic agents --> shock liver due to decreased CO Protonix gtt to continue ID: Empiric meropenem per Id for multiple bacterial translocations Monitor fever trend and WBC Lactic acidosis noted which can be multifactorial with infective processes and diaphragmatic decompensation given degree of tachypnea --Continue hydration and possibility of paralysis with Train of 4 for decreased LA formation Renal: Anion gap metabolic acidosis with poor compensation of respiratory drive Bicarb gtt to continue Monitor UO for adequate hydration status Heme: FFP and monitor Hgb Normal transfusion thresholds: 7.0 FEN: Fluids: IVF hydration per CVP goal of 4-6 Electrolyte abnormalities: Hypovolemic hyponatremia (solute loss give whole blood loss) Nutrition: NPO PPX: DVT - SCDs GI - PPI as above Dispo ICU monitoring and family discussion Prognosis dire Case discussed with Dr. Tavera and ICU team Cheikh Eagle, DO - IM PGY-3
[2019-07-16] MEDS ORDERED: ceFAZolin SODIUM 1 GM VIAL ONE (21:05)
[2019-07-16] MEDS ORDERED: DEXTROSE 5%-WATER - 50 ML IVPB ONE (21:05)
[2019-07-16] MEDS: CHLORHEXIDINE GLUCONATE 4% CLEANSER FOR DECOLONIZATION TP SCH (21:19)
[2019-07-16] MEDS ORDERED: CHLORHEXIDINE GLUCONATE 0.12% 15ML CUP MM SCH (22:00)
[2019-07-16] MEDS ORDERED: MEROPENEM 500 MG in DEXTROSE 5%-WATER 100 ML IVPB SCH (22:00)
[2019-07-16] MEDS ORDERED: CEFAZOLIN 1 GM in DEXTROSE 5%-WATER - 50 ML IVPB SCH (22:00)
--- NOTE | 2019-07-16 22:51 | PN ---
Progress Note, Physician Chief Complaint: Pt intubated; unresponsive (sedated). History of Present Illness: 69-year-old woman found on the floor by her son. Labs are consistent with severe volume depletion,dehydration with acute kidney injury as well as rhabdomyolysis. lactic acid markedly elevated. - Current Medication List Current Medications: Active Medications Acetaminophen (Ofirmev Injection -) 1,000 mg IVPB Q6H PRN PRN Reason: FEVER Last Admin: 07/15/19 13:56 Dose: 1,000 mg Chlorhexidine Gluconate (Hibiclens For Decolonization -) 1 applic TP HS BERTRAM Last Admin: 07/16/19 21:19 Dose: 1 applic Chlorhexidine Gluconate (Peridex -) 15 ml MM BID BERTRAM Last Admin: 07/16/19 21:19 Dose: 15 ml Hydrocortisone Sodium Succinate (Solu-Cortef -) 50 mg IVPB Q6H-IV BERTRAM Last Admin: 07/16/19 21:20 Dose: 50 mg Metronidazole (Flagyl 500mg Premixed Ivpb -) 500 mg in 100 mls @ 100 mls/hr IVPB Q8H-IV BERTRAM Last Admin: 07/16/19 17:48 Dose: 100 mls/hr Norepinephrine Bitartrate 8, (000 mcg/ Dextrose) 500 mls @ 18.75 mls/hr IV TITR BERTRAM; Protocol Last Titration: 07/16/19 08:05 Dose: 20 mcg/min, 75 mls/hr Fentanyl 500 mcg/ Dextrose 100 mls @ 1 mls/hr IVPB TITR BERTRAM; Protocol Last Admin: 07/16/19 22:29 Dose: 100 mcg/hr, 20 mls/hr Vasopressin 50 units/ Sodium (Chloride) 100 mls @ 24 mls/hr IVPB TITR BERTRAM; Protocol Last Titration: 07/16/19 08:05 Dose: 0.05 units/min, 6 mls/hr Sodium Bicarbonate 150 meq/ (Dextrose) 1,150 mls @ 100 mls/hr IV Q11H BERTRAM Last Admin: 07/16/19 20:58 Dose: Not Given Propofol (Diprivan -) 1,000,000 mcg in 100 mls @ 2.368 mls/hr IVPB TITR BERTRAM; Protocol Last Titration: 07/16/19 17:45 Dose: 0 mcg/kg/min, 0 mls/hr Amiodarone HCl/Dextrose (Nexterone 360 Mg/200 Ml Bag) 360 mg in 200 mls @ 16.667 mls/hr IVPB TITR BERTRAM; Protocol Last Admin: 07/16/19 04:09 Dose: Not Given Phenylephrine HCl 20,000 mcg/ (Sodium Chloride) 250 mls @ 75 mls/hr IVPB ASDIR BERTRAM; Protocol Last Admin: 07/16/19 22:29 Dose: 150 mcg/min, 112.5 mls/hr Cefazolin Sodium 1 gm/ (Dextrose) 50 mls @ 100 mls/hr IVPB BID BERTRAM; Protocol Last Admin: 07/16/19 21:18 Dose: 100 mls/hr Mupirocin (Bactroban Ointment (For Decolonization) -) 1 applic NS BID BERTRAM Stop: 07/20/19 09:59 Last Admin: 07/16/19 21:19 Dose: 1 applic Pantoprazole Sodium (Protonix Iv) 40 mg IVPUSH BID BERTRAM Last Admin: 07/16/19 21:19 Dose: 40 mg - Objective Vital Signs: Vital Signs Temperature 99 F 07/16/19 21:00 Pulse Rate 70 07/16/19 22:36 Respiratory Rate 26 H 07/16/19 22:36 Blood Pressure 113/43 L 07/16/19 22:36 O2 Sat by Pulse Oximetry (%) 80 L 07/16/19 20:30 Constitutional: Yes: Other Eyes: Yes: WNL Cardiovascular: Yes: S1 (varies in intensity), S2 (split) Respiratory: Yes: Diminished Gastrointestinal: Yes: Distention ...Rectal Exam: Yes: Other Genitourinary: Yes: Anuria, Booker Present Musculoskeletal: Yes: Muscle Weakness Extremities: Yes: Cool Edema: Yes Integumentary: Yes: Bruising, Petechiae Neurological: Yes: Unresponsive Psychiatric: Yes: Other Labs: CBC, BMP 07/16/19 05:40 07/16/19 05:40 INR, PTT INR 1.64 (0.83-1.09) H 07/16/19 05:40 Fibrinogen 375.0 mg/dL (238-498) 07/16/19 05:40 - ....Imaging Chest X-ray: Image Reviewed EKG: Image Reviewed (AF with RVR) Problem List - Problems (1) Atrial fibrillation with rapid ventricular response Assessment/Plan: IV amiodarone started; change to PO after 24-48 hours. Plan for repeat ECHO (initially unable to assess LVEF). Code(s): I48.91 - UNSPECIFIED ATRIAL FIBRILLATION (2) Lactic acidosis Code(s): E87.2 - ACIDOSIS (3) Renal failure Code(s): N19 - UNSPECIFIED KIDNEY FAILURE Qualifiers: Renal failure chronicity: acute Acute renal failure type: unspecified Qualified Code(s): N17.9 - Acute kidney failure, unspecified (4) Rhabdomyolysis Code(s): M62.82 - RHABDOMYOLYSIS Qualifiers: Rhabdomyolysis type: non-traumatic Qualified Code(s): M62.82 - Rhabdomyolysis (5) Severe sepsis Assessment/Plan: On norepinephrine and Vasopression. On antibiotics per ID. Poo prognosis. Code(s): A41.9 - SEPSIS, UNSPECIFIED ORGANISM; R65.20 - SEVERE SEPSIS WITHOUT SEPTIC SHOCK (6) Multiorgan failure Assessment/Plan: Septic shock require vasopressors. Rising LFTs, TNI demand ischemia; r/o CAD). Worsening renal failure; Marked leukocytosis, anemia, thrombocytosis Rhabdomyolysis. Ph7; respiratory failure. Poor prognosis. Code(s): HLE7067 - (7) Elevated troponin Assessment/Plan: Demand ischemia (sepsis, AF with RVR) Code(s): R74.8 - ABNORMAL LEVELS OF OTHER SERUM ENZYMES Assessment/Plan CCU time spent: 35 minutes.
[2019-07-17] MEDS ORDERED: DOPAMINE 400 MG/D5W - 400,000 MCG/250 ML INFUS.BAG IVPB ONE (00:29)
[2019-07-17] MEDS ORDERED: DOPAMINE 400 MG/D5W - 400,000 MCG/250 ML INFUS.BAG IVPB SCH (00:45)
[2019-07-17] MEDS: HYDROCORTISONE SOD SUCCINATE 100 MG/2 ML VIAL IVPB SCH (03:00)
[2019-07-17 03:27] VITALS: TEMP 98.7
[2019-07-17 03:32] VITALS: BP 59/36; PULSE 80
--- NOTE | 2019-07-17 03:32 | PN ---
Progress Note (short form) - Note Progress Note: Patient became bradycardic, apneic, and without pulses. Code 99 was called, and ACLS started at 0300. Patient was ventilated with an ambu-bag. 4 doses of epi given. Reversible causes were considered and addressed. Two amps of bicarb given. Patient was asystole throughout ACLS. Patient appeared cool to touch and cyanotic. Patient did not respond to sternal rub or verbal communication. Pupils fixed and dilated at 3mm bilaterally. Absent breath sounds bilaterally. Absent carotid and femoral pulses bilaterally. Heart sounds absent. Time of 0314. Please refer to the code sheet for additional details.
--- NOTE | 2019-07-17 05:26 | DS ---
Physical Exam: SUBJECTIVE: Overnight pt went into cardiac arrest and ROSC was not obtained. OBJECTIVE: Vital Signs Period Temp Pulse Resp BP Sys/James Pulse Ox Last 24 Hr 96.6 F-99.3 F 38-109 23-29 59-200/36-116 80-82 PHYSICAL EXAM Please see overnight events as pt is already LABS Laboratory Results - last 24 hr 07/16/19 07/16/19 07/16/19 02:30 05:40 05:40 WBC 30.2 H* RBC 3.17 L Hgb 7.2 L Hct 24.8 L MCV 78.2 L MCH 22.7 L MCHC 29.0 L RDW 21.6 H Plt Count 281 D MPV 8.3 Absolute Neuts (auto) 27.5 H Neutrophils % 91.0 H Neutrophils % (Manual) 63.1 Band Neutrophils % 16.8 Lymphocytes % 7.0 L Lymphocytes % (Manual) 3.2 L D Monocytes % 0.9 L Monocytes % (Manual) 3 L Eosinophils % 0.8 Eosinophils % (Manual) 0.0 D Basophils % 0.3 Basophils % (Manual) 0.0 Myelocytes % (Man) 3 H D Promyelocytes % (Man) 1 Blast Cells % (Manual) 0 Nucleated RBC % 1 H Metamyelocytes 10 H D Platelet Estimate Normal PT with INR INR PTT (Actin FS) Fibrinogen Anticoagulation Therapy Puncture Site ABG pH ABG pCO2 at Pt Temp ABG pO2 at Pt Temp ABG HCO3 ABG O2 Sat (Measured) ABG O2 Content ABG Base Excess Guille Test O2 Delivery Device Oxygen Flow Rate Vent Mode Vent Rate Mechanical Rate PEEP Pressure Support Vent Sodium Potassium Chloride Carbon Dioxide Anion Gap BUN Creatinine Est GFR (CKD-EPI)AfAm Est GFR (CKD-EPI)NonAf Random Glucose Lactic Acid Calcium Phosphorus Magnesium Total Bilirubin AST ALT Alkaline Phosphatase Troponin I Total Protein Albumin Ur Random Creatinine 25.0 L Random Vancomycin 18.5 Hep B Core IgM Ab Hepatitis Be Antigen 07/16/19 07/16/19 07/16/19 05:40 05:40 05:40 WBC RBC Hgb Hct MCV MCH MCHC RDW Plt Count MPV Absolute Neuts (auto) Neutrophils % Neutrophils % (Manual) Band Neutrophils % Lymphocytes % Lymphocytes % (Manual) Monocytes % Monocytes % (Manual) Eosinophils % Eosinophils % (Manual) Basophils % Basophils % (Manual) Myelocytes % (Man) Promyelocytes % (Man) Blast Cells % (Manual) Nucleated RBC % Metamyelocytes Platelet Estimate PT with INR INR PTT (Actin FS) Fibrinogen Anticoagulation Therapy Puncture Site ABG pH ABG pCO2 at Pt Temp ABG pO2 at Pt Temp ABG HCO3 ABG O2 Sat (Measured) ABG O2 Content ABG Base Excess Guille Test O2 Delivery Device Oxygen Flow Rate Vent Mode Vent Rate Mechanical Rate PEEP Pressure Support Vent Sodium 126 L Potassium 6.0 H Chloride 88 L Carbon Dioxide 12 L Anion Gap 26 H BUN 75.4 H Creatinine 2.6 H Est GFR (CKD-EPI)AfAm 20.68 Est GFR (CKD-EPI)NonAf 17.84 Random Glucose 354 H Lactic Acid Calcium 7.8 L Phosphorus 13.0 H* Magnesium 2.9 H Total Bilirubin 2.4 H AST 603 H ALT 103 H Alkaline Phosphatase 141 H Troponin I Total Protein 4.1 L Albumin 1.2 L Ur Random Creatinine Random Vancomycin Hep B Core IgM Ab Negative Hepatitis Be Antigen Negative 07/16/19 07/16/19 07/16/19 05:40 05:40 05:40 WBC RBC Hgb Hct MCV MCH MCHC RDW Plt Count MPV Absolute Neuts (auto) Neutrophils % Neutrophils % (Manual) Band Neutrophils % Lymphocytes % Lymphocytes % (Manual) Monocytes % Monocytes % (Manual) Eosinophils % Eosinophils % (Manual) Basophils % Basophils % (Manual) Myelocytes % (Man) Promyelocytes % (Man) Blast Cells % (Manual) Nucleated RBC % Metamyelocytes Platelet Estimate PT with INR 19.50 H INR 1.64 H PTT (Actin FS) 47.6 H Fibrinogen 375.0 Anticoagulation Therapy Puncture Site ABG pH ABG pCO2 at Pt Temp ABG pO2 at Pt Temp ABG HCO3 ABG O2 Sat (Measured) ABG O2 Content ABG Base Excess Guille Test O2 Delivery Device Oxygen Flow Rate Vent Mode Vent Rate Mechanical Rate PEEP Pressure Support Vent Sodium Potassium Chloride Carbon Dioxide Anion Gap BUN Creatinine Est GFR (CKD-EPI)AfAm Est GFR (CKD-EPI)NonAf Random Glucose Lactic Acid 14.6 H* Calcium Phosphorus Magnesium Total Bilirubin AST ALT Alkaline Phosphatase Troponin I Total Protein Albumin Ur Random Creatinine Random Vancomycin Hep B Core IgM Ab Hepatitis Be Antigen 07/16/19 07/16/19 07/16/19 05:40 06:36 12:40 WBC RBC Hgb Hct MCV MCH MCHC RDW Plt Count MPV Absolute Neuts (auto) Neutrophils % Neutrophils % (Manual) Band Neutrophils % Lymphocytes % Lymphocytes % (Manual) Monocytes % Monocytes % (Manual) Eosinophils % Eosinophils % (Manual) Basophils % Basophils % (Manual) Myelocytes % (Man) Promyelocytes % (Man) Blast Cells % (Manual) Nucleated RBC % Metamyelocytes Platelet Estimate PT with INR INR PTT (Actin FS) Fibrinogen Anticoagulation Therapy No Result Required. No Result Required. Puncture Site Right brachial Right brachial ABG pH 6.88 L* 6.90 L* ABG pCO2 at Pt Temp 55.2 H 64.3 H ABG pO2 at Pt Temp 107 H 81.3 ABG HCO3 9.7 L 11.9 L ABG O2 Sat (Measured) 92.5 L 87.8 L ABG O2 Content 92.5 No Result Required. ABG Base Excess -21.9 L -19.6 L Guille Test Not applicable Positive O2 Delivery Device No Result Required. Mec vent Oxygen Flow Rate Vent 100 Vent Mode A/c A/c Vent Rate 26 26 Mechanical Rate Yes No Result Required. PEEP 12.0 12.0 Pressure Support Vent 350 350 Sodium Potassium Chloride Carbon Dioxide Anion Gap BUN Creatinine Est GFR (CKD-EPI)AfAm Est GFR (CKD-EPI)NonAf Random Glucose Lactic Acid Calcium Phosphorus Magnesium Total Bilirubin AST ALT Alkaline Phosphatase Troponin I 0.64 H* Total Protein Albumin Ur Random Creatinine Random Vancomycin Hep B Core IgM Ab Hepatitis Be Antigen 07/16/19 12:52 WBC RBC Hgb Hct MCV MCH MCHC RDW Plt Count MPV Absolute Neuts (auto) Neutrophils % Neutrophils % (Manual) Band Neutrophils % Lymphocytes % Lymphocytes % (Manual) Monocytes % Monocytes % (Manual) Eosinophils % Eosinophils % (Manual) Basophils % Basophils % (Manual) Myelocytes % (Man) Promyelocytes % (Man) Blast Cells % (Manual) Nucleated RBC % Metamyelocytes Platelet Estimate PT with INR INR PTT (Actin FS) Fibrinogen Anticoagulation Therapy Puncture Site ABG pH ABG pCO2 at Pt Temp ABG pO2 at Pt Temp ABG HCO3 ABG O2 Sat (Measured) ABG O2 Content ABG Base Excess Guille Test O2 Delivery Device Oxygen Flow Rate Vent Mode Vent Rate Mechanical Rate PEEP Pressure Support Vent Sodium Potassium Chloride Carbon Dioxide Anion Gap BUN Creatinine Est GFR (CKD-EPI)AfAm Est GFR (CKD-EPI)NonAf Random Glucose Lactic Acid 16.7 H* Calcium Phosphorus Magnesium Total Bilirubin AST ALT Alkaline Phosphatase Troponin I Total Protein Albumin Ur Random Creatinine Random Vancomycin Hep B Core IgM Ab Hepatitis Be Antigen Active Medications Acetaminophen (Ofirmev Injection -) 1,000 mg IVPB Q6H PRN PRN Reason: FEVER Last Admin: 07/15/19 13:56 Dose: 1,000 mg Chlorhexidine Gluconate (Hibiclens For Decolonization -) 1 applic TP HS BERTRAM Last Admin: 07/16/19 21:19 Dose: 1 applic Chlorhexidine Gluconate (Peridex -) 15 ml MM BID BERTRAM Last Admin: 07/16/19 21:19 Dose: 15 ml Hydrocortisone Sodium Succinate (Solu-Cortef -) 50 mg IVPB Q6H-IV BERTRAM Last Admin: 07/17/19 03:00 Dose: Not Given Metronidazole (Flagyl 500mg Premixed Ivpb -) 500 mg in 100 mls @ 100 mls/hr IVPB Q8H-IV BERTRAM Last Admin: 07/17/19 01:28 Dose: 100 mls/hr Norepinephrine Bitartrate 8, (000 mcg/ Dextrose) 500 mls @ 18.75 mls/hr IV TITR BERTRAM; Protocol Last Admin: 07/16/19 19:00 Dose: 30.13 mcg/min, 113 mls/hr Fentanyl 500 mcg/ Dextrose 100 mls @ 1 mls/hr IVPB TITR BERTRAM; Protocol Last Admin: 07/16/19 22:29 Dose: 100 mcg/hr, 20 mls/hr Vasopressin 50 units/ Sodium (Chloride) 100 mls @ 24 mls/hr IVPB TITR BERTRAM; Protocol Last Titration: 07/17/19 01:12 Dose: 0 units/min, 0 mls/hr Sodium Bicarbonate 150 meq/ (Dextrose) 1,150 mls @ 100 mls/hr IV Q11H BERTRAM Last Admin: 07/16/19 20:58 Dose: Not Given Propofol (Diprivan -) 1,000,000 mcg in 100 mls @ 2.368 mls/hr IVPB TITR BERTRAM; Protocol Last Titration: 07/16/19 17:45 Dose: 0 mcg/kg/min, 0 mls/hr Amiodarone HCl/Dextrose (Nexterone 360 Mg/200 Ml Bag) 360 mg in 200 mls @ 16.667 mls/hr IVPB TITR BERTRAM; Protocol Last Admin: 07/16/19 19:00 Dose: Not Given Phenylephrine HCl 20,000 mcg/ (Sodium Chloride) 250 mls @ 75 mls/hr IVPB ASDIR BERTRAM; Protocol Last Titration: 07/17/19 02:05 Dose: 150 mcg/min, 112.5 mls/hr Cefazolin Sodium 1 gm/ (Dextrose) 50 mls @ 100 mls/hr IVPB BID BERTRAM; Protocol Last Admin: 07/16/19 21:18 Dose: 100 mls/hr Dopamine HCl/Dextrose (Dopamine 400 Mg/D5w -) 400,000 mcg in 250 mls @ 14.798 mls/hr IVPB TITR BERTRAM; Protocol Last Titration: 07/17/19 02:04 Dose: 10 mcg/kg/min, 29.597 mls/hr Mupirocin (Bactroban Ointment (For Decolonization) -) 1 applic NS BID BERTRAM Stop: 07/20/19 09:59 Last Admin: 07/16/19 21:19 Dose: 1 applic Pantoprazole Sodium (Protonix Iv) 40 mg IVPUSH BID BERTRAM Last Admin: 07/16/19 21:19 Dose: 40 mg Microbiology 07/16/19 02:30 Sputum - Endotrachea Suction/Ventilator Gram Stain - Final 07/16/19 02:30 Urine - Urine Booker Legionella Antigen - Final 07/16/19 02:30 Urine - Urine Booker Streptococcus pneumoniae Antigen (M - Final 07/14/19 20:00 Urine - Urine Clean Catch Urine Culture - Final NO GROWTH OBTAINED 07/14/19 20:00 Blood - Peripheral Venous Blood Culture - Preliminary Lactose Fermenting Neg Bacilli Staphylococcus Coagulase Neg 07/14/19 20:00 Blood - Peripheral Venous Blood Culture - Preliminary Pending Organism Imaging: Chest and abdominal CT w/o contrast: IMPRESSION: 1. Pneumoperitoneum suspicious for ruptured viscus. The site of perforation is uncertain but may be within the pelvis where a large complex mass involves the sigmoid colon and possibly small bowel loops. 2. Extensive pulmonary consolidation involving the right middle and lower lobes , as well as the left lower lobe. This is consistent with acute pneumonia. 3. Moderate ascites. 4. Moderate retroperitoneal lymphadenopathy. 5. No evidence of fracture or acute bony pathology. Please see above discussion. Renal/Bladder U/S 07/15 IMPRESSION: 1. Morphologically normal kidneys with no evidence of hydronephrosis or obstructive uropathy. 2. Ascites and suspected cirrhosis. 3. Technically inadequate evaluation of the urinary bladder Echocardiogram 07/15/19 Interpretation Summary The study was technically difficult with many images being suboptimal in quality. The left ventricle is grossly normal size. The left atrium is severely dilated. There is mild tricuspid regurgitation. Right ventricular systolic pressure is normal. E/A reversal consistent with but not diagnostic of poor LV compliance There is mild mitral regurgitation. The study was non-diagnostic in quality. No definitive statements could be made about this echo due to extremely poor acoustic windows. The left ventricle is not well visualized. Due to the poor quality of the echocardiogram, an assessment of left ventricular ejection fraction cannot be made. Regional wall motion abnormalities cannot be excluded due to limited visualization. HOSPITAL COURSE: Date of Admission:07/14/19 Date of Discharge: 07/17/19 Pt was admitted on 07/17/2019 due to becoming unresponsive after refusing to perform ADLs and maintain hygeine for 4 days. Upon arrival pt was noted to be bradycardic 2/2 to EMS medication, however went into Afib with RVR. She proceeded into septic shock secondary to perforated bowel as seen on imaging and aspiration PNA. ARDS was noted on her CXR. Pt was maintained on Levophed and Vasopressin, however continued into pressor refractory shock for which Hydrocortisone was added to her regiment (Fludrocortisone being held due to perforated abdominal viscus). During her course she was noted to have significant decline of her Hgb and pt was maintained on PPI gtt for likely blood loss anemia. Pt was seen by surgery who deemed she was too unstable to even undergo surgical intervention. Pt's metabolic acidosis worsened despite septic control with Meropenem alongside Flagyl, and she continued to decline clinically. Pt's family were made aware of her prognosis and were informed throughout her hospital stay as well as contacted through our palliative care services. In the morning of 07/17/19 pt went into cardiac arrest where ACLS protocol was performed without any meaningful return of circulation. Pt was pronounced on 07/17/19 at 0314h. Minutes to complete discharge: 35 Discharge Summary Problems reviewed: Yes Reason For Visit: UTI,ACIDOSIS,RENAL FAILURE,RHADOMYOLYSIS, Current Active Problems Acidosis (Acute) Altered mental status (Acute) Atrial fibrillation with rapid ventricular response (Acute) Coffee ground emesis (Acute) Elevated INR (Acute) Hyperammonemia (Acute) Lactic acidosis (Acute) Multiorgan failure (Acute) Renal failure (Acute) Rhabdomyolysis (Acute) Severe sepsis (Acute) UTI (urinary tract infection) (Acute) Condition: Critical - Instructions Disposition: This patient is new to me today: No Emergency Visit: Yes ED Registration Date: 07/14/19 Care time: The patient presented to the Emergency Department on the above date and was hospitalized for further evaluation of their emergent condition. Critical Care patient: Yes Total Critical Care Time (in minutes): 35 Critical Care Statement: The care of this patient involved high complexity decision making to prevent further life threatening deterioration of the patient 's condition and/or to evaluate & treat vital organ system(s) failure or risk of failure. - Discharge Referral Referred to [facility] No
--- NOTE | 2019-07-17 06:11 | RAPID ---
Physical Examination Vital Signs: Vital Signs Temperature 98.7 F 07/17/19 01:00 Pulse Rate 80 07/17/19 02:55 Respiratory Rate 26 H 07/17/19 02:55 Blood Pressure 59/36 L 07/17/19 02:55 O2 Sat by Pulse Oximetry (%) 80 L 07/16/19 20:30 Code 99 called at 02:59. Rapid Response team arrived immediately. Arrived to patient in asystole. Unable to attain ROSC. Time of 0314. Emotional support provided to family. Please refer to code sheet for further information. Labs: CBC, BMP 07/16/19 05:40 07/16/19 05:40
[2019-07-17 22:10] LABS: HEP B CORE AB, TOT Negative (Negative)
== END 2019-07-17 05:00 | disposition expired | DRG 871 ==
LOC: JER 19:22 → JERBED 22:01 → JICU 23:08
PROVIDERS: ADMIT Internal Medicine; ATTEND Hospitalist
PROC: 5A1945Z Respiratory Ventilation, 24-96 Consecutive Hours (ICD-10-PCS; principal; 2019-07-14)
PROC: 0BH17EZ Insertion of Endotracheal Airway into Trachea, Via Natural or Artificial Opening (ICD-10-PCS; 2019-07-14)
PROC: 05HM33Z Insertion of Infusion Device into Right Internal Jugular Vein, Percutaneous Approach (ICD-10-PCS; 2019-07-14)
PROC: 30233N1 Transfusion of Nonautologous Red Blood Cells into Peripheral Vein, Percutaneous Approach (ICD-10-PCS; 2019-07-15)
PROC: 30233L1 Transfusion of Nonautologous Fresh Plasma into Peripheral Vein, Percutaneous Approach (ICD-10-PCS; 2019-07-15)
PROC: 30233K1 Transfusion of Nonautologous Frozen Plasma into Peripheral Vein, Percutaneous Approach (ICD-10-PCS; 2019-07-15)
PROC: 5A12012 Performance of Cardiac Output, Single, Manual (ICD-10-PCS; 2019-07-17)
DX: A41.9 Sepsis, unspecified organism (principal); J69.0 Pneumonitis due to inhalation of food and vomit; K63.1 Perforation of intestine (nontraumatic); G93.41 Metabolic encephalopathy; R65.21 Severe sepsis with septic shock; J96.01 Acute respiratory failure with hypoxia; E87.2 Acidosis; K92.2 Gastrointestinal hemorrhage, unspecified; R18.8 Other ascites; N17.9 Acute kidney failure, unspecified; N39.0 Urinary tract infection, site not specified; E87.1 Hypo-osmolality and hyponatremia; D62 Acute posthemorrhagic anemia; I27.0 Primary pulmonary hypertension; I24.8 Other forms of acute ischemic heart disease; M62.82 Rhabdomyolysis; D68.9 Coagulation defect, unspecified; I48.91 Unspecified atrial fibrillation; R00.0 Tachycardia, unspecified; R41.82 Altered mental status, unspecified; E83.51 Hypocalcemia; D47.3 Essential (hemorrhagic) thrombocythemia; E87.5 Hyperkalemia; E86.0 Dehydration; E88.09 Other disorders of plasma-protein metabolism, not elsewhere classified
CPT/HCPCS: 31500; 36415; 36430; 36600; 70450-TC; 71045-TC-FY; 71250-TC; 72125-TC; 74018-TC-FY; 74176-TC; 76775-TC; 76856-TC; 80053; 80307; 81003; 82140; 82272; 82375; 82550; 82553; 82565; 82803; 82962; 83036; 83050; 83605; 83690; 83735; 83874; 83935; 84100; 84300; 84484; 85025; 85379; 85384; 85610; 85730; 86704; 86705; 86706; 86707; 86708; 86709; 86850; 86900; 86901; 86922; 87040; 87070; 87076; 87077; 87086; 87186; 87205; 87340; 87350; 87633; 87899; 87902; 93005; 93010; 93306-TC; 94002; 99285-25; G0480; J0131; J0282; J7030; P9017; P9038; P9058